=== PATIENT | male | born 1965 | race Caucasian/White ===

== ENCOUNTER 2024-10-09 01:03 | Day surgery (SDC) | payer OTHER, SELFPAY ==
[2024-09-29 12:46] VITALS: BMI 26.6
--- OUTSIDE RECORDS SUMMARY | 2024-10-09 01:06 | XMS_ITS | CONTINUITY OF CARE DOCUMENT ---
Author Name kristina acevedo Address Unknown Organization [facility] Office Address [address] [place] [address] Phone [phone] Care Team Providers Care Signal Operator Name Role Phone Janelle Herrera MD Unavailable [phone] Janelle Herrera MD Unavailable [phone] INSURANCE PROVIDERS Payer name Policy type / Coverage type [place] [employer] [place] [phone] [id number]
--- OUTSIDE RECORDS SUMMARY | 2024-10-09 01:06 | XMS_ITS | Data Portability ---
Author Organization [facility], Main Office Address [address] [place] [address] Assessment Encounter Date Assessment Date Assessment LastModified by Organization Details LastModified Time 09/11/2022 09/11/2022 Hyperlipidemia low-fat diet History of colon polyp colonoscopy Follow-up 6 months [email or web address] Not available 09/11/2022 10:53:44 03/16/2023 03/16/2023 Low-fat diet blood work see me 6 months continue current therapy colonoscopy [email or web address] Not available 03/17/2023 12:46:52 Plan of Treatment Reminders Order Date Submit Date Provider Last Modified By Organization Details Last Modified Time Details Appointments None recorded. Lab PSA, total, serum or plasma 2022 023 [facility] (Lab), [address] [place], [address], 14:34:44 lipid panel, serum 2022 023 [facility] (Lab), [address] [place], [address], 14:13:22 CMP, serum or plasma 2022 023 [facility] (Lab), [address] [place], [address], 14:13:28 CBC w/ auto diff 2022 023 [facility] (Lab), [address] [place], [address], 13:54:18 lipid panel, serum 2022 023 [facility] (Lab), [address] [place], [address], 3 13:48:50 CMP, serum or plasma 2022 023 [facility] (Lab), [address] [place], [address], 3 13:48:55 CBC w/ auto diff 2022 023 [facility] (Lab), [address] [place], [address], 3 11:58:13 Referral None recorded. Procedures colonoscopy screening (PROC) 2022 023 [email or web address] Geoff Solares MD, [address] [facility], [facility] [address], [place], [address], 4 09:40:33 colonoscopy procedure (PROC) 2022 023 angela Solares MD, [address] [facility], [facility] [address], [place], [address], 3 10:49:24 Surgeries None recorded. Imaging None recorded. Medication Orders None recorded. Patient TargetsNo targets recorded. Patient InstructionsNo instructions recorded. Reason for Referral None Reported. Results Created Date Observation Date Name Description Value Unit Range Abnormal Flag Note LastModifiedBy Organization Detail LastModifiedTime 12/15/19 22 12/14/2021 PSA SCREE N PSA medicare screen 1.09 NG/mL 0.00-4 .00 Not Available [facility] (Lab) [address] [place], [address], 12/14/2021 19:51:32 12/15/19 22 12/14/2021 LIPID PANEL cholesterol 158 mg/dL 140-19 9 NIH JAYJAY NSUS RECOM MENDA TION FOR KRISTOFER STERO L: ADULT CHILD LOW RISK: <200 <170 BORDE RLINE : <200- 239 ----- HIGH RISK: >240 >200 Not Available [facility] (Lab) [address] [place], [address], 12/14/2021 19:22:15 12/15/19 22 12/14/2021 LIPID PANEL triglyceride s 179 mg/dL 0-150 high NIH JAYJAY NSUS REPOR T RECOM MENDA TION FOR TRIGL YCERI KEI: ADULT CHILD LOW RISK: <150 ----- BODER LINE: 150-1 99 ----- HIGH RISK: >200 ----- Not Available [facility] (Lab) [address] [place], [address], 12/14/2021 19:22:15 12/15/19 22 12/14/2021 LIPID PANEL HDL cholesterol 37 mg/dL 40- low Not Available [facility] (Lab) [address] [place], [address], 12/14/2021 19:22:15 12/15/19 22 12/14/2021 LIPID PANEL LDL cholesterol, calculated 85 mg/dL 0-130 NIH JAYJAY NSUS REPOR T RECOM MENDA TIONS FOR LDL: ADULT CHILD LOW RISK <130 <110 (OPTI MAL LDL) <100 ----- BORDE RLINE : 130-1 59 ----- HIGH RISK: >160 >130 A TRIGL YCERI DE RESUL T >400 INVAL IDATE S THE CALCU LATIO N FOR LDL FRACT IONAT ION - THE LDL RESUL T WILL NOT BE REPOR DULCE MARIA. Not Available [facility] (Lab) [address] [place], [address], 12/14/2021 19:22:15 12/15/1912/14/2021 COMPR EHENS STONE METAB OLIC PANEL sodium 140 mmol/ L 137-14 5 Not Available [facility] (Lab) [address] [place], [address], 12/14/2021 19:22:13 12/15/19 22 12/14/2021 COMPR EHENS STONE METAB OLIC PANEL potassium 4.1 mmol/ L 3.5-5. 1 Not Available [facility] (Lab) [address] [place], [address], 12/14/2021 19:22:13 12/15/19 22 12/14/2021 COMPR EHENS STONE METAB OLIC PANEL chloride 103 mmol/ L 98-107 Not Available [facility] (Lab) [address] [place], [address], 12/14/2021 19:22:13 12/15/19 22 12/14/2021 COMPR EHENS STONE METAB OLIC PANEL carbon dioxide 28 mmol/ L 22-30 Not Available [facility] (Lab) [address] [place], [address], 12/14/2021 19:22:13 12/15/19 22 12/14/2021 COMPR EHENS STONE METAB OLIC PANEL anion gap 13.1 mmol/ L 14-22 low Not Available [facility] (Lab) [address] [place], [address], 12/14/2021 19:22:13 12/15/19 22 12/14/2021 COMPR EHENS TSONE METAB OLIC PANEL glucose 93 mg/dL 70-99 Not Available [facility] (Lab) [address] [place], [address], 12/14/2021 19:22:13 12/15/19 22 12/14/2021 COMPR EHENS STONE METAB OLIC PANEL BUN 19 mg/dL 8-19 Not Available [facility] (Lab) [address] [place], [address], 12/14/2021 19:22:13 12/15/19 22 12/14/2021 COMPR EHENS STONE METAB OLIC PANEL creatinine 1.24 mg/dL 0.66-1 .25 Not Available [facility] (Lab) [address] [place], [address], 12/14/2021 19:22:13 12/15/19 22 12/14/2021 COMPR EHENS STONE METAB OLIC PANEL GFR >60 Refer ence Range : [place] ge GFR Healt hy Adult : >60 mL/mi n/1.7 3 m2 Chron ic Kidne y Disea se: 15-60 mL/mi n/1.7 3 m2 Kidne y Failu re: <15/m L/min /1.73 m2 www.n iddk. nih.g ov The MDRD study equat ion has not been valid ated in child michi <18 years of age; pregn ant women ; the elder ly >85 years of age; or in some racia l or ethni c subgr oups, such as de nics. Outsi de the valid ated maria e eters , estim ated GFR is less accur ate, requi ring clini jimenez judgm ent on a case- by-ca se basis . Clini jimenez inter preta tion for other races and ages must be made by the clini elham. The MDRD study equat ion has not been valid ated for the evalu ation of serum creat inine relat ed to nutri gia l statu s or medic ation usage . For perso ns <18 years of age, a pedia tric GFR calcu lator is avail able on the [facility] websi te: https ://lu oscar.loretta sahni.o rg/pr ofess ional s/kdo qi/gf r_cal culat or Not Available [facility] (Lab) [address] [place], [address], 12/14/2021 19:22:13 12/15/19 22 12/14/2021 COMPR EHENS STONE METAB OLIC PANEL alkaline phosphatase 75 U/L 38-126 Not Available [facility] (Lab) [address] [place], [address], 12/14/2021 19:22:13 12/15/19 22 12/14/2021 COMPR EHENS STONE METAB OLIC PANEL alanine aminotransfe rase 25 U/L 0-50 Not Available [facility] (Lab) [address] [place], [address], 12/14/2021 19:22:13 12/15/19 22 12/14/2021 COMPR EHENS STONE METAB OLIC PANEL aspartate aminotransfe rase 25 U/L 15-46 Not Available [facility] (Lab) [address] [place], [address], 12/14/2021 19:22:13 12/15/19 22 12/14/2021 COMPR EHENS STONE METAB OLIC PANEL bilirubin, total 0.50 mg/dL 0.20-1 .30 Not Available [facility] (Lab) [address] [place], [address], 12/14/2021 19:22:13 12/15/19 22 12/14/2021 COMPR EHENS STONE METAB OLIC PANEL calcium 9.4 mg/dL 8.4-10 .2 Not Available [facility] (Lab) [address] [place], [address], 12/14/2021 19:22:13 12/15/19 22 12/14/2021 COMPR EHENS STONE METAB OLIC PANEL total protein 7.1 g/dL 6.3-8. 2 Not Available [facility] (Lab) [address] [place], [address], 12/14/2021 19:22:13 12/15/19 22 12/14/2021 COMPR EHENS STONE METAB OLIC PANEL albumin 4.4 g/dL 3.4-5. 0 Not Available [facility] (Lab) [address] [place], [address], 12/14/2021 19:22:13 12/15/19 22 12/14/2021 COMPR EHENS STONE METAB OLIC PANEL globulin 2.7 g/dL 2.6-4. 2 Not Available [facility] (Lab) [address] [place], [address], 12/14/2021 19:22:13 12/15/19 22 12/14/2021 COMPR EHENS STONE METAB OLIC PANEL A/G ratio 1.6 ratio 1.0-2. 0 Not Available [facility] (Lab) [address] [place], [address], 12/14/2021 19:22:13 12/15/19 22 12/14/2021 CBC/C OMPLE TE BLD COUNT W/DIF F white blood cells 7.5 x10'3 /uL 4.2-10 .8 Not Available [facility] (Lab) [address] [place], [address], 12/14/2021 18:33:42 12/15/19 22 12/14/2021 CBC/C OMPLE TE BLD COUNT W/DIF F red blood cells 4.41 x10'6 /uL 4.10-5 .80 Not Available [facility] (Lab) [address] [place], [address], 12/14/2021 18:33:42 12/15/19 22 12/14/2021 CBC/C OMPLE TE BLD COUNT W/DIF F hemoglobin 13.8 g/dL 13.2-1 7.0 Not Available [facility] (Lab) [address] [place], [address], 12/14/2021 18:33:42 12/15/19 22 12/14/2021 CBC/C OMPLE TE BLD COUNT W/DIF F hematocrit 43.1 % 39.3-5 0.0 Not Available [facility] (Lab) [address] [place], [address], 12/14/2021 18:33:42 12/15/19 22 12/14/2021 CBC/C OMPLE TE BLD COUNT W/DIF F mean red cell volume 97.7 fL 80.0-9 7.0 high Not Available [facility] (Lab) [address] [place], [address], 12/14/2021 18:33:42 12/15/19 22 12/14/2021 CBC/C OMPLE TE BLD COUNT W/DIF F mean red cell hemoglobin 31.3 pg 27.0-3 3.0 Not Available [facility] (Lab) [address] [place], [address], 12/14/2021 18:33:42 12/15/19 22 12/14/2021 CBC/C OMPLE TE BLD COUNT W/DIF F mean RBC HGB concentratio n 32.0 g/dL 31.0-3 6.0 Not Available [facility] (Lab) [address] [place], [address], 12/14/2021 18:33:42 12/15/19 22 12/14/2021 CBC/C OMPLE TE BLD COUNT W/DIF F red cell distribution width 13.4 % 11.8-1 5.5 Not Available [facility] (Lab) [address] [place], [address], 12/14/2021 18:33:42 12/15/19 22 12/14/2021 CBC/C OMPLE TE BLD COUNT W/DIF F platelets 260 x10'3 /uL 150-40 0 Not Available [facility] (Lab) [address] [place], [address], 12/14/2021 18:33:42 12/15/19 22 12/14/2021 CBC/C OMPLE TE BLD COUNT W/DIF F mean platelet volume 10.0 fL 9.0-12 .4 Not Available [facility] (Lab) [address] [place], [address], 12/14/2021 18:33:42 12/15/19 22 12/14/2021 CBC/C OMPLE TE BLD COUNT W/DIF F neutrophils 43.3 % 39.0-7 2.0 Not Available [facility] (Lab) [address] [place], [address], 12/14/2021 18:33:42 12/15/19 22 12/14/2021 CBC/C OMPLE TE BLD COUNT W/DIF F lymphocytes 44.6 % 16.0-4 7.0 Not Available [facility] (Lab) [address] [place], [address], 12/14/2021 18:33:42 12/15/19 22 12/14/2021 CBC/C OMPLE TE BLD COUNT W/DIF F monocytes 8.3 % 5.0-12 .0 Not Available [facility] (Lab) [address] [place], [address], 12/14/2021 18:33:42 12/15/19 22 12/14/2021 CBC/C OMPLE TE BLD COUNT W/DIF F eosinophils 2.9 % 1.0-7. 0 Not Available [facility] (Lab) [address] [place], [address], 12/14/2021 18:33:42 12/15/19 22 12/14/2021 CBC/C OMPLE TE BLD COUNT W/DIF F basophils 0.5 % 0.0-2. 0 Not Available [facility] (Lab) [address] [place], [address], 12/14/2021 18:33:42 12/15/19 22 12/14/2021 CBC/C OMPLE TE BLD COUNT W/DIF F immature granulocytes 0.4 % 0.00-0 .50 Not Available [facility] (Lab) [address] [place], [address], 12/14/2021 18:33:42 12/15/19 22 12/14/2021 CBC/C OMPLE TE BLD COUNT W/DIF F neutrophils, absolute count 3.24 x10'3 /uL 1.5-8. 0 Not Available [facility] (Lab) [address] [place], [address], 12/14/2021 18:33:42 12/15/19 22 12/14/2021 CBC/C OMPLE TE BLD COUNT W/DIF F lymphocytes, absolute count 3.34 x10'3 /uL 1.07-3 .43 Not Available [facility] (Lab) [address] [place], [address], 12/14/2021 18:33:42 12/15/19 22 12/14/2021 CBC/C OMPLE TE BLD COUNT W/DIF F monocytes, absolute count 0.62 x10'3 /uL 0.29-0 .99 Not Available [facility] (Lab) [address] [place], [address], 12/14/2021 18:33:42 12/15/19 22 12/14/2021 CBC/C OMPLE TE BLD COUNT W/DIF F eosinophils, absolute count 0.22 x10'3 /uL 0.02-0 .53 Not Available [facility] (Lab) [address] [place], [address], 12/14/2021 18:33:42 12/15/19 22 12/14/2021 CBC/C OMPLE TE BLD COUNT W/DIF F basophils, absolute count 0.04 x10'3 /uL 0.01-0 .08 Not Available [facility] (Lab) [address] [place], [address], 12/14/2021 18:33:42 12/15/19 22 12/14/2021 CBC/C OMPLE TE BLD COUNT W/DIF F immature granulocytes ,absolute 0.03 x10'3 /uL 0.00-0 .05 Not Available [facility] (Lab) [address] [place], [address], 12/14/2021 18:33:42 12/15/19 22 12/14/2021 CBC/C OMPLE TE BLD COUNT W/DIF F nucleated red blood cells 0.0 % -0 Not Available [facility] (Lab) [address] [place], [address], 12/14/2021 18:33:42 12/15/19 22 12/14/2021 CBC/C OMPLE TE BLD COUNT W/DIF F NRBC# 0.00 x10'3 /uL Not Available [facility] (Lab) [address] [place], [address], 12/14/2021 18:33:42 03/14/20 22 03/14/2022 TSH thyroid-stim ulating hormone 1.240 uIU/m L 0.465- 4.680 Not Available [facility] (Lab) [address] [place], [address], 03/14/2022 13:38:31 03/14/20 22 03/14/2022 T3 FREE free T3 3.8 pg/mL 2.77-5 .27 Not Available [facility] (Lab) [address] [place], [address], 03/14/2022 13:29:57 03/14/20 22 03/14/2022 T4 FREE free T4 1.06 NG/dL 0.78-2 .19 Not Available [facility] (Lab) [address] [place], [address], 03/14/2022 13:29:54 03/14/20 22 03/14/2022 COMPR EHENS STONE METAB OLIC PANEL sodium 141 mmol/ L 137-14 5 Not Available [facility] (Lab) [address] [place], [address], 03/14/2022 13:28:21 03/14/20 22 03/14/2022 COMPR EHENS STONE METAB OLIC PANEL potassium 4.0 mmol/ L 3.5-5. 1 Not Available [facility] (Lab) [address] [place], [address], 03/14/2022 13:28:21 03/14/20 22 03/14/2022 COMPR EHENS STONE METAB OLIC PANEL chloride 105 mmol/ L 98-107 Not Available [facility] (Lab) [address] [place], [address], 03/14/2022 13:28:21 03/14/20 22 03/14/2022 COMPR EHENS STONE METAB OLIC PANEL carbon dioxide 29 mmol/ L 22-30 Not Available [facility] (Lab) [address] [place], [address], 03/14/2022 13:28:21 03/14/20 22 03/14/2022 COMPR EHENS STONE METAB OLIC PANEL anion gap 11.0 mmol/ L 14-22 low Not Available [facility] (Lab) [address] [place], [address], 03/14/2022 13:28:21 03/14/20 22 03/14/2022 COMPR EHENS STONE METAB OLIC PANEL glucose 109 mg/dL 70-99 high Not Available [facility] (Lab) [address] [place], [address], 03/14/2022 13:28:21 03/14/20 22 03/14/2022 COMPR EHENS STONE METAB OLIC PANEL BUN 19 mg/dL 8-19 Not Available [facility] (Lab) [address] [place], [address], 03/14/2022 13:28:21 03/14/20 22 03/14/2022 COMPR EHENS STONE METAB OLIC PANEL creatinine 1.03 mg/dL 0.66-1 .25 Not Available [facility] (Lab) [address] [place], [address], 03/14/2022 13:28:21 03/14/20 22 03/14/2022 COMPR EHENS STONE METAB OLIC PANEL GFR >60 Refer ence Range : [place] GFR Healt hy Adult : >60 mL/mi n/1.7 3 m2 Chron ic Kidne y Disea se: 15-60 mL/mi n/1.7 3 m2 Kidne y Failu re: <15/m L/min /1.73 m2 www[facility].g ov The MDRD study equat ion has not been valid ated in child michi <18 years of age; pregn ant women ; the elder ly >85 years of age; or in some racia l or ethni c subgr oups, such as Hispa nics. Outsi de the valid ated maria e eters , estim ated GFR is less accur ate, requi ring clini jimenez judgm ent on a case- by-ca se basis . Clini jimenez inter preta tion for other races and ages must be made by the clini elham. The MDRD study equat ion has not been valid ated for the evalu ation of serum creat inine relat ed to nutri gia l statu s or medic ation usage . For perso ns <18 years of age, a pedia tric GFR calcu lator is avail able on the [facility] websi te: https ://lu sahni.o rg/pr ofess ional s/kdo qi/gf r_cal culat or Not Available [facility] (Lab) [address] [place], [address], 03/14/2022 13:28:21 03/14/20 22 03/14/2022 COMPR EHENS STONE METAB OLIC PANEL alkaline phosphatase 79 U/L 38-126 Not Available [facility] (Lab) [address] [place], [address], 03/14/2022 13:28:21 03/14/20 22 03/14/2022 COMPR EHENS STONE METAB OLIC PANEL alanine aminotransfe rase 19 U/L 0-50 Not Available [facility] (Lab) [address] [place], [address], 03/14/2022 13:28:21 03/14/20 22 03/14/2022 COMPR EHENS STONE METAB OLIC PANEL aspartate aminotransfe rase 23 U/L 15-46 Not Available [facility] (Lab) [address] [place], [address], 03/14/2022 13:28:21 03/14/20 22 03/14/2022 COMPR EHENS STONE METAB OLIC PANEL bilirubin, total 0.60 mg/dL 0.20-1 .30 Not Available [facility] (Lab) [address] [place], [address], 03/14/2022 13:28:21 03/14/20 22 03/14/2022 COMPR EHENS STONE METAB OLIC PANEL calcium 9.4 mg/dL 8.4-10 .2 Not Available [facility] (Lab) [address] [place], [address], 03/14/2022 13:28:21 03/14/20 22 03/14/2022 COMPR EHENS STONE METAB OLIC PANEL total protein 7.1 g/dL 6.3-8. 2 Not Available [facility] (Lab) [address] [place], [address], 03/14/2022 13:28:21 03/14/20 22 03/14/2022 COMPR EHENS STONE METAB OLIC PANEL albumin 4.5 g/dL 3.4-5. 0 Not Available [facility] (Lab) [address] [place], [address], 03/14/2022 13:28:21 03/14/20 22 03/14/2022 COMPR EHENS STONE METAB OLIC PANEL globulin 2.6 g/dL 2.6-4. 2 Not Available [facility] (Lab) [address] [place], [address], 03/14/2022 13:28:21 03/14/20 22 03/14/2022 COMPR EHENS STONE METAB OLIC PANEL A/G ratio 1.7 ratio 1.0-2. 0 Not Available [facility] (Lab) [address] [place], [address], 03/14/2022 13:28:21 03/14/20 22 03/14/2022 MAGNE SIUM magnesium 1.7 mg/dL 1.6-2. 3 Not Available [facility] (Lab) [address] [place], [address], 03/14/2022 13:28:09 03/14/20 22 03/14/2022 CBC/C OMPLE TE BLD COUNT W/DIF F white blood cells 7.3 x10'3 /uL 4.2-10 .8 Not Available [facility] (Lab) [address] [place], [address], 03/14/2022 12:47:02 03/14/20 22 03/14/2022 CBC/C OMPLE TE BLD COUNT W/DIF F red blood cells 4.41 x10'6 /uL 4.10-5 .80 Not Available [facility] (Lab) [address] [place], [address], 03/14/2022 12:47:02 03/14/20 22 03/14/2022 CBC/C OMPLE TE BLD COUNT W/DIF F hemoglobin 14.0 g/dL 13.2-1 7.0 Not Available [facility] (Lab) [address] [place], [address], 03/14/2022 12:47:02 03/14/20 22 03/14/2022 CBC/C OMPLE TE BLD COUNT W/DIF F hematocrit 43.2 % 39.3-5 0.0 Not Available [facility] (Lab) [address] [facility] [place], [address], 03/14/2022 12:47:02 03/14/2003/14/2022 CBC/C OMPLE TE BLD COUNT W/DIF F mean red cell volume 98.0 fL 80.0-9 7.0 high Not Available [facility] (Lab) [address] [place], [address], 03/14/2022 12:47:02 03/14/20 22 03/14/2022 CBC/C OMPLE TE BLD COUNT W/DIF F mean red cell hemoglobin 31.7 pg 27.0-3 3.0 Not Available [facility] (Lab) [address] [place], [address], 03/14/2022 12:47:02 03/14/2003/14/2022 CBC/C OMPLE TE BLD COUNT W/DIF F mean RBC HGB concentratio n 32.4 g/dL 31.0-3 6.0 Not Available [facility] (Lab) [address] [place], [address], 03/14/2022 12:47:02 03/14/20 22 03/14/2022 CBC/C OMPLE TE BLD COUNT W/DIF F red cell distribution width 13.4 % 11.8-1 5.5 Not Available [facility] (Lab) [address] [place], [address], 03/14/2022 12:47:02 03/14/20 22 03/14/2022 CBC/C OMPLE TE BLD COUNT W/DIF F platelets 247 x10'3 /uL 150-40 0 Not Available [facility] (Lab) [address] [place], [address], 03/14/2022 12:47:02 03/14/20 22 03/14/2022 CBC/C OMPLE TE BLD COUNT W/DIF F mean platelet volume 10.1 fL 9.0-12 .4 Not Available [facility] (Lab) [address] [place], [address], 03/14/2022 12:47:02 03/14/20 22 03/14/2022 CBC/C OMPLE TE BLD COUNT W/DIF F neutrophils 49.2 % 39.0-7 2.0 Not Available [facility] (Lab) [address] [place], [address], 03/14/2022 12:47:02 03/14/20 22 03/14/2022 CBC/C OMPLE TE BLD COUNT W/DIF F lymphocytes 39.5 % 16.0-4 7.0 Not Available [facility] (Lab) [address] [place], [address], 03/14/2022 12:47:02 03/14/20 22 03/14/2022 CBC/C OMPLE TE BLD COUNT W/DIF F monocytes 7.2 % 5.0-12 .0 Not Available [facility] (Lab) [address] [place], [address], 03/14/2022 12:47:02 03/14/20 22 03/14/2022 CBC/C OMPLE TE BLD COUNT W/DIF F eosinophils 3.7 % 1.0-7. 0 Not Available [facility] (Lab) [address] [place], [address], 03/14/2022 12:47:02 03/14/20 22 03/14/2022 CBC/C OMPLE TE BLD COUNT W/DIF F basophils 0.3 % 0.0-2. 0 Not Available [facility] (Lab) [address] [place], [address], 03/14/2022 12:47:02 03/14/20 22 03/14/2022 CBC/C OMPLE TE BLD COUNT W/DIF F immature granulocytes 0.1 % 0.00-0 .50 Not Available [facility] (Lab) [address] [place], [address], 03/14/2022 12:47:02 03/14/2003/14/2022 CBC/C OMPLE TE BLD COUNT W/DIF F neutrophils, absolute count 3.61 x10'3 /uL 1.5-8. 0 Not Available [facility] (Lab) [address] [place], [address], 03/14/2022 12:47:02 03/14/2003/14/2022 CBC/C OMPLE TE BLD COUNT W/DIF F lymphocytes, absolute count 2.90 x10'3 /uL 1.07-3 .43 Not Available [facility] (Lab) [address] [place], [address], 03/14/2022 12:47:02 03/14/2003/14/2022 CBC/C OMPLE TE BLD COUNT W/DIF F monocytes, absolute count 0.53 x10'3 /uL 0.29-0 .99 Not Available [facility] (Lab) [address] [place], [address], 03/14/2022 12:47:02 03/14/2003/14/2022 CBC/C OMPLE TE BLD COUNT W/DIF F eosinophils, absolute count 0.27 x10'3 /uL 0.02-0 .53 Not Available [facility] (Lab) [address] [place], [address], 03/14/2022 12:47:02 03/14/2003/14/2022 CBC/C OMPLE TE BLD COUNT W/DIF F basophils, absolute count 0.02 x10'3 /uL 0.01-0 .08 Not Available [facility] (Lab) [address] [place], [address], 03/14/2022 12:47:02 03/14/2001 0403/14/2022 CBC/C OMPLE TE BLD COUNT W/DIF F immature granulocytes ,absolute 0.01 x10'3 /uL 0.00-0 .05 Not Available [facility] (Lab) [address] [place], [address], 03/14/2022 12:47:02 03/14/20 22 03/14/2022 CBC/C OMPLE TE BLD COUNT W/DIF F nucleated red blood cells 0.0 % -0 Not Available [facility] (Lab) [address] [place], [address], 03/14/2022 12:47:02 03/14/2003/14/2022 CBC/C OMPLE TE BLD COUNT W/DIF F NRBC# 0.00 x10'3 /uL Not Available [facility] (Lab) [address] [place], [address], 03/14/2022 12:47:02 09/12/19 23 09/11/2022 CBC/C OMPLE TE BLD COUNT W/DIF F white blood cells 6.7 x10'3 /uL 4.2-10 .8 Not Available [facility] (Lab) [address] [place], [address], 09/11/2022 11:58:13 09/12/1909/11/2022 CBC/C OMPLE TE BLD COUNT W/DIF F red blood cells 4.34 x10'6 /uL 4.10-5 .80 Not Available [facility] (Lab) [address] [place], [address], 09/11/2022 11:58:13 09/12/19 23 09/11/2022 CBC/C OMPLE TE BLD COUNT W/DIF F hemoglobin 13.6 g/dL 13.2-1 7.0 Not Available [facility] (Lab) [address] [place], [address], 09/11/2022 11:58:13 09/12/19 23 09/11/2022 CBC/C OMPLE TE BLD COUNT W/DIF F hematocrit 42.1 % 39.3-5 0.0 Not Available [facility] (Lab) [address] [place], [address], 09/11/2022 11:58:13 09/12/19 23 09/11/2022 CBC/C OMPLE TE BLD COUNT W/DIF F mean red cell volume 97.0 fL 80.0-9 7.0 Not Available [facility] (Lab) [address] [place], [address], 09/11/2022 11:58:13 09/12/19 23 09/11/2022 CBC/C OMPLE TE BLD COUNT W/DIF F mean red cell hemoglobin 31.3 pg 27.0-3 3.0 Not Available [facility] (Lab) [address] [place], [address], 09/11/2022 11:58:13 09/12/19 23 09/11/2022 CBC/C OMPLE TE BLD COUNT W/DIF F mean RBC HGB concentratio n 32.3 g/dL 31.0-3 6.0 Not Available [facility] (Lab) [address] [place], [address], 09/11/2022 11:58:13 09/12/19 23 09/11/2022 CBC/C OMPLE TE BLD COUNT W/DIF F red cell distribution width 14.0 % 11.8-1 5.5 Not Available [facility] (Lab) [address] [place], [address], 09/11/2022 11:58:13 09/12/19 23 09/11/2022 CBC/C OMPLE TE BLD COUNT W/DIF F platelets 253 x10'3 /uL 150-40 0 Not Available [facility] (Lab) [address] [place], [place], [address], 09/11/2022 11:58:13 09/12/19 23 09/11/2022 CBC/C OMPLE TE BLD COUNT W/DIF F mean platelet volume 9.7 fL 9.0-12 .4 Not Available [facility] (Lab) [address] [place], [address], 09/11/2022 11:58:13 09/12/19 23 09/11/2022 CBC/C OMPLE TE BLD COUNT W/DIF F neutrophils 46.8 % 39.0-7 2.0 Not Available [facility] (Lab) [address] [place], [address], 09/11/2022 11:58:13 09/12/19 23 09/11/2022 CBC/C OMPLE TE BLD COUNT W/DIF F lymphocytes 41.9 % 16.0-4 7.0 Not Available [facility] (Lab) [address] [place], [address], 09/11/2022 11:58:13 09/12/19 23 09/11/2022 CBC/C OMPLE TE BLD COUNT W/DIF F monocytes 7.2 % 5.0-12 .0 Not Available [facility] (Lab) [address] [place], [address], 09/11/2022 11:58:13 09/12/1909/11/2022 CBC/C OMPLE TE BLD COUNT W/DIF F eosinophils 3.4 % 1.0-7. 0 Not Available [facility] (Lab) [address] [place], [address], 09/11/2022 11:58:13 09/12/1909/11/2022 CBC/C OMPLE TE BLD COUNT W/DIF F basophils 0.6 % 0.0-2. 0 Not Available [facility] (Lab) [address] [place], [address], 09/11/2022 11:58:13 09/12/19 23 09/11/2022 CBC/C OMPLE TE BLD COUNT W/DIF F immature granulocytes 0.1 % 0.00-0 .50 Not Available [facility] (Lab) [address] [place], [address], 09/11/2022 11:58:13 09/12/19 23 09/11/2022 CBC/C OMPLE TE BLD COUNT W/DIF F neutrophils, absolute count 3.13 x10'3 /uL 1.5-8. 0 Not Available [facility] (Lab) [address] [place], [address], 09/11/2022 11:58:13 09/12/19 23 09/11/2022 CBC/C OMPLE TE BLD COUNT W/DIF F lymphocytes, absolute count 2.81 x10'3 /uL 1.07-3 .43 Not Available [facility] (Lab) [address] [place], [address], 09/11/2022 11:58:13 09/12/19 23 09/11/2022 CBC/C OMPLE TE BLD COUNT W/DIF F monocytes, absolute count 0.48 x10'3 /uL 0.29-0 .99 Not Available [facility] (Lab) [address] [place], [address], 09/11/2022 11:58:13 09/12/19 23 09/11/2022 CBC/C OMPLE TE BLD COUNT W/DIF F eosinophils, absolute count 0.23 x10'3 /uL 0.02-0 .53 Not Available [facility] (Lab) [address] [place], [address], 09/11/2022 11:58:13 09/12/19 23 09/11/2022 CBC/C OMPLE TE BLD COUNT W/DIF F basophils, absolute count 0.04 x10'3 /uL 0.01-0 .08 Not Available [facility] (Lab) [address] [place], [address], 09/11/2022 11:58:13 09/12/19 23 09/11/2022 CBC/C OMPLE TE BLD COUNT W/DIF F immature granulocytes ,absolute 0.01 x10'3 /uL 0.00-0 .05 Not Available [facility] (Lab) [address] [place], [address], 09/11/2022 11:58:13 09/12/19 23 09/11/2022 CBC/C OMPLE TE BLD COUNT W/DIF F nucleated red blood cells 0.0 % -0 Not Available [facility] (Lab) [address] [place], [address], 09/11/2022 11:58:13 09/12/19 23 09/11/2022 CBC/C OMPLE TE BLD COUNT W/DIF F NRBC# 0.00 x10'3 /uL Not Available [facility] (Lab) [address] [place], [address], 09/11/2022 11:58:13 09/12/1909/11/2022 LIPID PANEL cholesterol 155 mg/dL 140-19 9 NIH JAYJAY NSUS RECOM MENDA TION FOR KRISTOFER STERO L: ADULT CHILD LOW RISK: <200 <170 BORDE RLINE : <200- 239 ----- HIGH RISK: >240 >200 Not Available [facility] (Lab) [address] [place], [address], 09/11/2022 13:48:50 09/12/1909/11/2022 LIPID PANEL triglyceride s 107 mg/dL 0-150 NIH JAYJAY NSUS REPOR T RECOM MENDA TION FOR TRIGL YCERI KEI: ADULT CHILD LOW RISK: <150 ----- BODER LINE: 150-1 99 ----- HIGH RISK: >200 ----- Not Available [facility] (Lab) [address] [place], [address], 09/11/2022 13:48:50 09/12/1909/11/2022 LIPID PANEL HDL cholesterol 38 mg/dL 40- low Not Available [facility] (Lab) [address] [place], [address], 09/11/2022 13:48:50 09/12/1909/11/2022 LIPID PANEL LDL cholesterol, calculated 96 mg/dL 0-130 NIH JAYJAY NSUS REPOR T RECOM MENDA TIONS FOR LDL: ADULT CHILD LOW RISK <130 <110 (OPTI MAL LDL) <100 ----- BORDE RLINE : 130-1 59 ----- HIGH RISK: >160 >130 A TRIGL YCERI DE RESUL T >400 INVAL IDATE S THE CALCU LATIO N FOR LDL FRACT IONAT ION - THE LDL RESUL T WILL NOT BE REPOR DULCE MARIA. Not Available [facility] (Lab) [address] [place], [address], 09/11/2022 13:48:50 09/12/1909/11/2022 COMPR EHENS STONE METAB OLIC PANEL sodium 141 mmol/ L 137-14 5 Not Available [facility] (Lab) [address] [place], [address], 09/11/2022 13:48:55 09/12/1909/11/2022 COMPR EHENS STONE METAB OLIC PANEL potassium 4.1 mmol/ L 3.5-5. 1 Not Available [facility] (Lab) [address] [place], [address], 09/11/2022 13:48:55 09/12/1909/11/2022 COMPR EHENS STONE METAB OLIC PANEL chloride 105 mmol/ L 98-107 Not Available [facility] (Lab) [address] [place], [address], 09/11/2022 13:48:55 09/12/19 23 09/11/2022 COMPR EHENS STONE METAB OLIC PANEL carbon dioxide 24 mmol/ L 22-30 Not Available [facility] (Lab) [address] [place], [address], 09/11/2022 13:48:55 09/12/19 23 09/11/2022 COMPR EHENS STONE METAB OLIC PANEL anion gap 16.1 mmol/ L 14-22 Not Available [facility] (Lab) [address] [place], [address], 09/11/2022 13:48:55 09/12/19 23 09/11/2022 COMPR EHENS STONE METAB OLIC PANEL glucose 111 mg/dL 70-99 high Not Available [facility] (Lab) [address] [place], [address], 09/11/2022 13:48:55 09/12/19 23 09/11/2022 COMPR EHENS STONE METAB OLIC PANEL BUN 14 mg/dL 8-19 Not Available [facility] (Lab) [address] [place], [address], 09/11/2022 13:48:55 09/12/19 23 09/11/2022 COMPR EHENS STONE METAB OLIC PANEL creatinine 0.83 mg/dL 0.66-1 .25 Not Available [facility] (Lab) [address] [place], [address], 09/11/2022 13:48:55 09/12/19 23 09/11/2022 COMPR EHENS STONE METAB OLIC PANEL GFR >60 Refer ence Range : [place] GFR Healt hy Adult : >60 mL/mi n/1.7 3 m2 Chron ic Kidne y Disea se: 15-60 mL/mi n/1.7 3 m2 Kidne y Failu re: <15/m L/min /1.73 m2 www.n iddk. nih.g ov The MDRD study equat ion has not been valid ated in child michi <18 years of age; pregn ant women ; the elder ly >85 years of age; or in some racia l or ethni c subgr oups, such as Hispa nics. Outsi de the valid ated maria e eters , estim ated GFR is less accur ate, requi ring clini jimenez judgm ent on a case- by-ca se basis . Clini jimenez inter preta tion for other races and ages must be made by the clini elham. The MDRD study equat ion has not been valid ated for the evalu ation of serum creat inine relat ed to nutri gia l statu s or medic ation usage . For perso ns <18 years of age, a pedia tric GFR calcu lator is avail able on the [facility] websi te: https ://lu w.kid bora.o rg/pr ofess ional s/kdo qi/gf r_cal culat or Not Available [facility] (Lab) [address] [place], [address], 09/11/2022 13:48:55 09/12/19 23 09/11/2022 COMPR EHENS STONE METAB OLIC PANEL alkaline phosphatase 84 U/L 38-126 Not Available [facility] (Lab) [address] [place], [address], 09/11/2022 13:48:55 09/12/19 23 09/11/2022 COMPR EHENS STONE METAB OLIC PANEL alanine aminotransfe rase 28 U/L 0-50 Not Available [facility] (Lab) [address] [place], [address], 09/11/2022 13:48:55 09/12/19 23 09/11/2022 COMPR EHENS STONE METAB OLIC PANEL aspartate aminotransfe rase 27 U/L 15-46 Not Available [facility] (Lab) [address] [place], [address], 09/11/2022 13:48:55 09/12/19 23 09/11/2022 COMPR EHENS STONE METAB OLIC PANEL bilirubin, total 0.50 mg/dL 0.20-1 .30 Not Available [facility] (Lab) [address] [place], [address], 09/11/2022 13:48:55 09/12/19 23 09/11/2022 COMPR EHENS STONE METAB OLIC PANEL calcium 8.9 mg/dL 8.4-10 .2 Not Available [facility] (Lab) [address] [place], [address], 09/11/2022 13:48:55 09/12/19 23 09/11/2022 COMPR EHENS STONE METAB OLIC PANEL total protein 7.0 g/dL 6.3-8. 2 Not Available [facility] (Lab) [address] [place], [address], 09/11/2022 13:48:55 09/12/19 23 09/11/2022 COMPR EHENS STONE METAB OLIC PANEL albumin 4.3 g/dL 3.4-5. 0 Not Available [facility] (Lab) [address] [place], [address], 09/11/2022 13:48:55 09/12/19 23 09/11/2022 COMPR EHENS STONE METAB OLIC PANEL globulin 2.7 g/dL 2.6-4. 2 Not Available [facility] (Lab) [address] [place], [address], 09/11/2022 13:48:55 09/12/19 23 09/11/2022 COMPR EHENS STONE METAB OLIC PANEL A/G ratio 1.6 ratio 1.0-2. 0 Not Available [facility] (Lab) [address] [place], [address], 09/11/2022 13:48:55 03/22/20 23 03/22/2023 CBC/C OMPLE TE BLD COUNT W/DIF F white blood cells 8.3 x10'3 /uL 4.2-10 .8 Not Available [facility] (Lab) [address] [place], [address], 03/22/2023 13:54:18 03/22/2003/22/2023 CBC/C OMPLE TE BLD COUNT W/DIF F red blood cells 4.36 x10'6 /uL 4.10-5 .80 Not Available [facility] (Lab) [address] [place], [address], 03/22/2023 13:54:18 03/22/2003/22/2023 CBC/C OMPLE TE BLD COUNT W/DIF F hemoglobin 14.4 g/dL 13.2-1 7.0 Not Available [facility] (Lab) [address] [place], [address], 03/22/2023 13:54:18 03/22/2003/22/2023 CBC/C OMPLE TE BLD COUNT W/DIF F hematocrit 43.5 % 39.3-5 0.0 Not Available [facility] (Lab) [address] [place], [address], 03/22/2023 13:54:18 03/22/2003/22/2023 CBC/C OMPLE TE BLD COUNT W/DIF F mean red cell volume 99.8 fL 80.0-9 7.0 high Not Available [facility] (Lab) [address] [place], [address], 03/22/2023 13:54:18 03/22/2003/22/2023 CBC/C OMPLE TE BLD COUNT W/DIF F mean red cell hemoglobin 33.0 pg 27.0-3 3.0 Not Available [facility] (Lab) [address] [place], [address], 03/22/2023 13:54:18 03/22/2003/22/2023 CBC/C OMPLE TE BLD COUNT W/DIF F mean RBC HGB concentratio n 33.1 g/dL 31.0-3 6.0 Not Available [facility] (Lab) [address] [place], [address], 03/22/2023 13:54:18 03/22/2003/22/2023 CBC/C OMPLE TE BLD COUNT W/DIF F red cell distribution width 13.7 % 11.8-1 5.5 Not Available [facility] (Lab) [address] [place], [address], 03/22/2023 13:54:18 03/22/2003/22/2023 CBC/C OMPLE TE BLD COUNT W/DIF F platelets 256 x10'3 /uL 150-40 0 Not Available [facility] (Lab) [address] [place], [address], 03/22/2023 13:54:18 03/22/2003/22/2023 CBC/C OMPLE TE BLD COUNT W/DIF F mean platelet volume 10.1 fL 9.0-12 .4 Not Available [facility] (Lab) [address] [place], [address], 03/22/2023 13:54:18 03/22/2003/22/2023 CBC/C OMPLE TE BLD COUNT W/DIF F neutrophils 44.2 % 39.0-7 2.0 Not Available [facility] (Lab) [address] [place], [address], 03/22/2023 13:54:18 03/22/2003/22/2023 CBC/C OMPLE TE BLD COUNT W/DIF F lymphocytes 44.0 % 16.0-4 7.0 Not Available [facility] (Lab) [address] [place], [address], 03/22/2023 13:54:18 03/22/2003/22/2023 CBC/C OMPLE TE BLD COUNT W/DIF F monocytes 8.1 % 5.0-12 .0 Not Available [facility] (Lab) [address] [place], [address], 03/22/2023 13:54:18 03/22/2003/22/2023 CBC/C OMPLE TE BLD COUNT W/DIF F eosinophils 2.9 % 1.0-7. 0 Not Available [facility] (Lab) [address] [place], [address], 03/22/2023 13:54:18 03/22/2003/22/2023 CBC/C OMPLE TE BLD COUNT W/DIF F basophils 0.6 % 0.0-2. 0 Not Available [facility] (Lab) [address] [place], [address], 03/22/2023 13:54:18 03/22/2003/22/2023 CBC/C OMPLE TE BLD COUNT W/DIF F immature granulocytes 0.2 % 0.00-0 .50 Not Available [facility] (Lab) [address] [place], [address], 03/22/2023 13:54:18 03/22/2003/22/2023 CBC/C OMPLE TE BLD COUNT W/DIF F neutrophils, absolute count 3.67 x10'3 /uL 1.5-8. 0 Not Available [facility] (Lab) [address] [place], [address], 03/22/2023 13:54:18 03/22/2003/22/2023 CBC/C OMPLE TE BLD COUNT W/DIF F lymphocytes, absolute count 3.65 x10'3 /uL 1.07-3 .43 high Not Available [facility] (Lab) [address] [place], [address], 03/22/2023 13:54:18 03/22/20 23 03/22/2023 CBC/C OMPLE TE BLD COUNT W/DIF F monocytes, absolute count 0.67 x10'3 /uL 0.29-0 .99 Not Available [facility] (Lab) [address] [place], [address], 03/22/2023 13:54:18 03/22/2003/22/2023 CBC/C OMPLE TE BLD COUNT W/DIF F eosinophils, absolute count 0.24 x10'3 /uL 0.02-0 .53 Not Available [facility] (Lab) [address] [place], [address], 03/22/2023 13:54:18 03/22/20 23 03/22/2023 CBC/C OMPLE TE BLD COUNT W/DIF F basophils, absolute count 0.05 x10'3 /uL 0.01-0 .08 Not Available [facility] (Lab) [address] [place], [address], 03/22/2023 13:54:18 03/22/2003/22/2023 CBC/C OMPLE TE BLD COUNT W/DIF F immature granulocytes ,absolute 0.02 x10'3 /uL 0.00-0 .05 Not Available [facility] (Lab) [address] [place], [address], 03/22/2023 13:54:18 03/22/2003/22/2023 CBC/C OMPLE TE BLD COUNT W/DIF F nucleated red blood cells 0.0 % -0 Not Available [facility] (Lab) [address] [place], [address], 03/22/2023 13:54:18 03/22/20 23 03/22/2023 CBC/C OMPLE TE BLD COUNT W/DIF F NRBC# 0.00 x10'3 /uL Not Available [facility] (Lab) [address] [place], [address], 03/22/2023 13:54:18 03/22/2003/22/2023 LIPID PANEL cholesterol 161 mg/dL 140-19 9 NIH JAYJAY NSUS RECOM MENDA TION FOR KRISTOFER STERO L: ADULT CHILD LOW RISK: <200 <170 BORDE RLINE : <200- 239 ----- HIGH RISK: >240 >200 Not Available [facility] (Lab) [address] [place], [address], 03/22/2023 14:13:22 03/22/2003/22/2023 LIPID PANEL triglyceride s 118 mg/dL 0-150 NIH JAYJAY NSUS REPOR T RECOM MENDA TION FOR TRIGL YCERI KEI: ADULT CHILD LOW RISK: <150 ----- BODER LINE: 150-1 99 ----- HIGH RISK: >200 ----- Not Available [facility] (Lab) [address] [place], [address], 03/22/2023 14:13:22 03/22/2003/22/2023 LIPID PANEL HDL cholesterol 36 mg/dL 40- low Not Available [facility] (Lab) [address] [place], [address], 03/22/2023 14:13:22 03/22/2003/22/2023 LIPID PANEL LDL cholesterol, calculated 101 mg/dL 0-130 NIH JAYJAY NSUS REPOR T RECOM MENDA TIONS FOR LDL: ADULT CHILD LOW RISK <130 <110 (OPTI MAL LDL) <100 ----- BORDE RLINE : 130-1 59 ----- HIGH RISK: >160 >130 A TRIGL YCERI DE RESUL T >400 INVAL IDATE S THE CALCU LATIO N FOR LDL FRACT IONAT ION - THE LDL RESUL T WILL NOT BE REPOR DULCE MARIA. Not Available [facility] (Lab) [address] [place], [address], 03/22/2023 14:13:22 03/22/2003/22/2023 COMPR EHENS STONE METAB OLIC PANEL sodium 143 mmol/ L 137-14 5 Not Available [facility] (Lab) [address] [place], [address], 03/22/2023 14:13:28 03/22/20 23 03/22/2023 COMPR EHENS STONE METAB OLIC PANEL potassium 4.2 mmol/ L 3.5-5. 1 Not Available [facility] (Lab) [address] [place], [address], 03/22/2023 14:13:28 03/22/2003/22/2023 COMPR EHENS STONE METAB OLIC PANEL chloride 103 mmol/ L 98-107 Not Available [facility] (Lab) [address] [place], [address], 03/22/2023 14:13:28 03/22/2003/22/2023 COMPR EHENS STONE METAB OLIC PANEL carbon dioxide 31 mmol/ L 22-30 high Not Available [facility] (Lab) [address] [place], [address], 03/22/2023 14:13:28 03/22/20 23 03/22/2023 COMPR EHENS STONE METAB OLIC PANEL anion gap 13.2 mmol/ L 14-22 low Not Available [facility] (Lab) [address] [place], [address], 03/22/2023 14:13:28 03/22/2003/22/2023 COMPR EHENS STONE METAB OLIC PANEL glucose 98 mg/dL 70-99 Not Available [facility] (Lab) [address] [place], [address], 03/22/2023 14:13:28 03/22/20 23 03/22/2023 COMPR EHENS STONE METAB OLIC PANEL BUN 17 mg/dL 8-19 Not Available [facility] (Lab) [address] [place], [address], 03/22/2023 14:13:28 03/22/2003/22/2023 COMPR EHENS STONE METAB OLIC PANEL creatinine 0.91 mg/dL 0.66-1 .25 Not Available [facility] (Lab) [address] [place], [address], 03/22/2023 14:13:28 03/22/2003/22/2023 COMPR EHENS STONE METAB OLIC PANEL GFR >60 Refer ence Range : [place] ge GFR Healt hy Adult : >60 mL/mi n/1.7 3 m2 Chron ic Kidne y Disea se: 15-60 mL/mi n/1.7 3 m2 Kidne y Failu re: <15/m L/min /1.73 m2 www.n iddk. nih.g ov The MDRD study equat ion has not been valid ated in child michi <18 years of age; pregn ant women ; the elder ly >85 years of age; or in some racia l or ethni c subgr oups, such as Hisde nics. Outsi de the valid ated maria e eters , estim ated GFR is less accur ate, requi ring clini jimenez judgm ent on a case- by-ca se basis . Clini jimenez inter preta tion for other races and ages must be made by the clini elham. The MDRD study equat ion has not been valid ated for the evalu ation of serum creat inine relat ed to nutri gia l statu s or medic ation usage . For perso ns <18 years of age, a pedia tric GFR calcu lator is avail able on the [facility] websi te: https ://lu sahni.kennedy benites/pr sage erazoal s/kdo qi/gf r_cal culat or Not Available [facility] (Lab) [address] [place], [address], 03/22/2023 14:13:28 03/22/2003/22/2023 COMPR EHENS STONE METAB OLIC PANEL alkaline phosphatase 76 U/L 38-126 Not Available [facility] (Lab) [address] [place], [address], 03/22/2023 14:13:28 03/22/2003/22/2023 COMPR EHENS STONE METAB OLIC PANEL alanine aminotransfe rase 24 U/L 0-50 Not Available [facility] (Lab) [address] [place], [address], 03/22/2023 14:13:28 03/22/2003/22/2023 COMPR EHENS STONE METAB OLIC PANEL aspartate aminotransfe rase 24 U/L 15-46 Not Available [facility] (Lab) [address] [place], [address], 03/22/2023 14:13:28 03/22/2003/22/2023 COMPR EHENS STONE METAB OLIC PANEL bilirubin, total 0.50 mg/dL 0.20-1 .30 Not Available [facility] (Lab) [address] [place], [address], 03/22/2023 14:13:28 03/22/2003/22/2023 COMPR EHENS STONE METAB OLIC PANEL calcium 9.5 mg/dL 8.4-10 .2 Not Available [facility] (Lab) [address] [place], [address], 03/22/2023 14:13:28 03/22/2003/22/2023 COMPR EHENS STONE METAB OLIC PANEL total protein 7.2 g/dL 6.3-8. 2 Not Available [facility] (Lab) [address] [place], [address], 03/22/2023 14:13:28 03/22/2003/22/2023 COMPR EHENS STONE METAB OLIC PANEL albumin 4.4 g/dL 3.4-5. 0 Not Available [facility] (Lab) [address] [place], [address], 03/22/2023 14:13:28 03/22/20 23 03/22/2023 COMPR EHENS STONE METAB OLIC PANEL globulin 2.8 g/dL 2.6-4. 2 Not Available [facility] (Lab) [address] [place], [address], 03/22/2023 14:13:28 03/22/20 23 03/22/2023 COMPR EHENS STOEN METAB OLIC PANEL A/G ratio 1.6 ratio 1.0-2. 0 Not Available [facility] (Lab) [address] [place], [address], 03/22/2023 14:13:28 03/22/20 23 03/22/2023 PSA SCREE N PSA medicare screen 1.16 NG/mL 0.00-4 .00 Not Available [facility] (Lab) [address] [place], [address], 03/22/2023 14:34:44 03/13/20 22 03/14/2022 [facility] No observ ation record ed. [id number] Z_[id number]_gmg Internal Med [facility] [address] [facility] [address] [facility] [address], [place], [address], 08/09/2022 15:17:34 03/14/20 22 03/13/2022 elect rocar diogr am No observ ation record ed. [id number] Z_hrgmc_gmg Internal Med [facility] [address] [facility] [address], [place], [address], 08/09/2022 15:17:34 03/17/20 22 03/17/2022 MRI, inter nal audit ory canal , w/wo contr ast [facility] [address] [place] [address] [phone] Patirosaura t Name: ANDRAE BUTLER Access ion #: [id number] Sex: M : 1964 6 Locati on: [facility] Attend ing Physic mingo: BRADY HERNANDEZ Orderi ng Physic mingo: BRADY HERNANDEZ Exam Date: 1:18 PM Exam Name: MRI IACS W/WO Admitt ing Diagno sis(es ): RADIOL OGY REPORT - FINAL EXAM: MRI IACS W/WO HISTOR Y: dizzin ess COMPAR CHAKA: None availa ble. TECHNI QUE: DOSE: 17.0ml Multih ance gadoli nium Multip lanar multis equenc e pre and post IV contra st images of the IACs were perfor med. FINDIN GS: No eviden ce of mass in the cerebe llopon connor angle cister ns or exercise science internship al audito ry canals . The fifth, sevent h, and eighth crania l nerves are symmet mitch withou t abnorm al thicke jadiel. The cochle a and vestib ular aquedu cts appear Page 1 of 2 [facility] Patien t Name: ANDRAE BUTLER Access ion #: [id number] Sex: M : 1964 6 Exam Date: 1:18 PM Exam Name: MRI IACS W/WO Admitt ing Diagno sis(es ): normal and symmet mitch. No eviden ce of fluid or abnorm al signal in the middle ear spaces , mastoi d air cells, or calender let off operator al audito ry canals . IMPRES VIVIANA: Unrema rkable pre and post IV contra st MRI of the IACs. Create d and electr onical ly signed by: Elmer schmid MD Signed Date: 4:23 PM (CT) Dictat ed by: Elmer schmid MD DD: 4:23 PM (CT) DT: 4:23 PM (CT) Page 2 of 2 [id number] [facility] (Imaging) [address] [place], [address], 08/09/2022 15:17:34 03/17/20 22 03/17/2022 , echoc ardio gram No observ ation record ed. [id number] [facility] [address], [place], [address], 08/09/2022 15:17:34 03/17/20 22 03/17/2022 MRI, brain , w/wo contr ast [facility] [address], [place] [address] Patien t Name: ANDRAE BUTLER Access ion #: [id number] Sex: M : 1964 8 Locati on: [facility] Attend ing Physic mingo: BRADY HERNANDEZ Orderi ng Physic mingo: BRADY HERNANDEZ Exam Date: 1:18 PM Exam Name: MRI BRAIN W/WO Admitt ing Diagno sis(es ): RADIOL OGY REPORT - FINAL EXAM: MRI BRAIN W/WO HISTOR Y: dizzin ess COMPAR CHAKA: None. TECHNI QUE: Dose: 17.0 ml Multih ance gadoli nium TECHNI QUE: Multip lanar multis equenc e contra st and noncon trast images are review ed. Images are review ed in the [facility], [facility], and axial plane. Diffus ion-we ighted images are review ed. FINDIN GS: Brain: The stephen-w alexis matter differ entiat ion is within normal limits withou t eviden ce of demyel inatin g proces s. No eviden ce of enceph alomal acia. No Page 1 of 2 [facility] Patien t Name: ANDRAE BUTLER Access ion #: [id number] Sex: M : 1964 8 Exam Date: 1:18 PM Exam Name: MRI BRAIN W/WO Admitt ing Diagno sis(es ): eviden ce of infarc tion. No eviden ce of mass effect or cortic al atroph y. The diffus ion weight ed sequen remy are normal . The bilate ral 7/8 nerve comple x, brains tem and cerebe llum are grossl y normal . Ventri cular system midlin e, normal size, normal develo pment. Osseou s: The calvar ium appear s normal . Sinuse s: Mild inflam matory change s within the bilate ral maxill mateo and ethmoi d air cells. Tempor al mastoi d air cells: Unrema rkable Extra- axial fluid space: Unrema rkable IMPRES VIVIANA: 1. No acute intrac ranial proces s. Create d and electr onical ly signed by: Elmer schmid MD Signed Date: 4:22 PM (CT) Dictat ed by: Elmer schmid MD DD: 4:22 PM (CT) DT: 4:22 PM (CT) Page 2 of 2 [id number] [facility] (Imaging) [address] [place], [address], 08/09/2022 15:17:34 Result Notes None recorded. Problems Name Problem SNOMED Code Status Onset Date Resolution Date Notes Provider Name and Address Organization Details Recorded Time Impacted cerumen of bilateral ears 00124812134 [id number] Active 2021 Not Available [facility] 3 07:57:59 Increased frequency of urination 397292167 Active Not Available [facility] 3 07:57:59 Pure hyperchol esterolem ia 503419215 Active Not Available [facility] 3 07:57:59 Wax in ear canal 051176729 Completed Not Available [facility] 3 15:14:59 Cat bite - wound 716459124 Completed Not Available [facility] 3 15:14:59 Inguinal hernia 139044489 Active Not Available [facility] 3 07:57:59 Vertigo 944462291 Active 2021 Not Available [facility] 3 07:57:59 Dizziness 485793043 Active 2021 Not Available [facility] 3 07:58:00 Hyperplas ia of prostate 155480376 Active Not Available [facility] 3 07:58:00 [place] 77690317 Active 2021 Not Available [facility] [facility] 07:58:00 Urgent desire to urinate [id number] Completed Not Available [facility] 3 15:15:00 Neck pain 04106010 Completed Not Available [facility] 3 15:15:00 Chronic rhinitis 28451408 Active Not Available [facility] 3 07:58:00 Problem Notes None recorded. Procedures Surgical History None recorded. Imaging Results Imaging Date Name Status LastModified by Organization Details LastModified Time 03/17/2022 MRI, internal auditory canal, w/wo contrast completed [id number] [facility] (Imaging) [address] [place], [address], 08/09/2022 15:17:34 03/17/2022 US, echocardiogram completed [id number] .[id number] [facility] Add On Lab Orders [address] [place], [address], 08/09/2022 15:17:34 03/14/2022 electrocardiogram completed MIGRATION. [id number] _[facility] Internal Med [address] [facility], [place], [address], 08/09/2022 15:17:34 03/13/2022 electrocardiogram completed MIGRATION. [id number] [facility] [address] [facility], [place], [address], 08/09/2022 15:17:34 03/17/2022 MRI, brain, w/wo contrast completed MIGRATION.[id number] [facility] (Imaging) [address] [place], [address], 08/09/2022 15:17:34 Procedure Notes None recorded. Medical Equipment None Reported. Allergies Allergen ID Allergen Name Allergen Category Reaction Reaction Severity Criticality Documentation Date Start Date Code Code System Note Provider Name and Address Organization Details Recorded Time 48406 Product containin g penicilli n (product) medicatio n Not available Not available Not available 08/09/2022 09521 8001 SNOMED Don't know his react ion just was told by his mom when he was a child . Not Available [facility] 3 15:17:28 Medications Name Sig Start Date Stop Date Status Note LastModified by Organization Details LastModified Time atorvastati n 10 mg tablet TK 1 T PO QD 12/14 completed Not Available Not Available Not Available niacin ER 750 mg tablet,exte nded release 24 hr TK 2 TS PO D 03/04 completed Not Available Not Available Not Available ciprofloxac in 500 mg tablet TK 1 T PO BID FOR 10 DAYS 02/05 completed Not Available Not Available Not Available sulfamethox azole 800 mg-trimetho prim 160 mg tablet Take 1 tablet every 12 hours by oral route for 7 days. 04/25 completed Not Available Not Available Not Available peg-electro lyte solution 420 gram oral solution MIX AND DRINK UTD 10/25 completed Not Available Not Available Not Available tamsulosin 0.4 mg capsule TK ONE C PO QD 02/10 completed Not Available Not Available Not Available cephalexin 500 mg capsule TAKE 1 CAPSULE BY MOUTH THREE TIMES DAILY X 5 DAYS 12/02 completed Not Available Not Available Not Available methylpredn isolone 4 mg tablets in a dose pack TK UTD 10/25 completed Not Available Not Available Not Available loratadine 10 mg tablet TAKE 1 TABLET BY MOUTH EVERY DAY active Not Available Not Available No t Available diazepam 5 mg tablet TAKE 1/2 TABLET BY MOUTH TWICE DAILY 04/03 completed Not Available Not Available Not Available meclizine 04/03 completed Not Available Not Available Not Available Zyrtec 03/16 completed PRN Not Available Not Available Not Available loratadine 10 mg capsule Take 1 capsule every day by oral route. 12/14 completed Not Available Not Available Not Available BinaxNOW COVID-19 Ag Self Test kit TEST DIRECTED TODAY 09/11 completed Not Available Not Available Not Available Vitals Date Recorded Body mass index (BMI) Body height Heart rate Body temperature Body weight Systolic blood pressure Diastolic blood pressure Provider Name and Address Organization Details Last Updated DateTime 2 27.8 kg/m2 177.8 cm 64 /min 97.7 [degF] 32106.9 2 g 110 mm[Hg] 70 mm[Hg] Not Available [facility] 3 15:13:38 Date Recorded Body mass index (BMI) Body height Heart rate Body temperature Body weight Systolic blood pressure Diastolic blood pressure Provider Name and Address Organization Details Last Updated DateTime 2 28.3 kg/m2 177.8 cm 62 /min 97.4 [degF] 66685.7 g 118 mm[Hg] 70 mm[Hg] Not Available [facility] 3 15:13:38 Date Recorded Body mass index (BMI) Body height Heart rate Body temperature Body weight Systolic blood pressure Diastolic blood pressure Provider Name and Address Organization Details Last Updated DateTime 2 28.3 kg/m2 177.8 cm 60 /min 97.7 [degF] 78185.7 g 114 mm[Hg] 74 mm[Hg] Not Available [facility] 3 15:13:38 Date Recorded Body height Body mass index (BMI) Body weight Provider Name and Address Organization Details Last Updated DateTime 09/11/2022 177.8 cm 27.8 kg/m2 31513.92 g Denise Perry RN [facility] [employer] 09/11/2022 10:30:05 Date Recorded Body height Body mass index (BMI) Body weight Body temperature Heart rate Systolic blood pressure Diastolic blood pressure Provider Name and Address Organization Details Last Updated DateTime 3 177.8 cm 27.5 kg/m2 78366.7 4 g 98.6 [degF] 66 /min 142 mm[Hg] 78 mm[Hg] Piedad chopra RN [facility] [employer] 3 10:14:42 Social History Question Answer Notes LastModified by Organization Details LastModified Time Tobacco Smoking Status Never Smoker Not Available [facility] 08/09/2022 15:13:11 Do You Have An Advance Directive? No MIGRATION.0301 [id number] Information not available 08/09/2022 What Is Your Level Of Alcohol Consumption? Moderate MIGRATION.0301 [id number] Information not available 08/09/2022 What Is Your Level Of Caffeine Consumption? Moderate MIGRATION.0301 [id number] Information not available 08/09/2022 In The 14 Days Before Symptom Onset, Have You Had Close Contact With A Laboratory-conf irmed COVID-19 While That Case Was Ill? No MIGRATION.0301 [id number] Information not available 08/09/2022 In The 14 Days Before Symptom Onset, Have You Had Close Contact With A Person Who Is Under Investigation For COVID-19 While That Person Was Ill? No MIGRATION.0301 [id number] Information not available 08/09/2022 What Type Of Diet Are You Following? REGULAR MIGRATION.0301 075481 Information not available 08/09/2022 Which Illicit Or Recreational Drugs Have You Used? Marijuana Smoke Marijuana MIGRATION.0301 553180 Information not available 08/09/2022 What Is The Highest Grade Or Level Of School You Have Completed Or The Highest Degree You Have Received? 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 No MIGRATION.0301 804468 Information not available 08/09/2022 What Is The Fluoride Status Of Your Home? Unknown MIGRATION.0301 662122 Information not available 08/09/2022 Are There Any Guns Present In Your Home? No MIGRATION.0301 538813 Information not available 08/09/2022 Do You Use Insect Repellent Routinely? No MIGRATION.0301 536561 Information not available 08/09/2022 Where Do You Live? [place]House MIGRATION.0301 349215 Information not available 08/09/2022 Do You Have A Medical Power Of Monorail Crane Operator? No MIGRATION.0301 208580 Information not available 08/09/2022 What Was The Date Of Your Most Recent Tobacco Screening? 03/16/2023 [email or web address] Information not available 03/16/2023 Have You Ever Been Counseled For Unhealthy Alcohol Use? No MIGRATION.0301 607016 Information not available 08/09/2022 Do You Have Any Pets? Yes MIGRATION.0301 523744 Information not available 08/09/2022 What Is Your Relationship Status? MIGRATION.0301 551790 Information not available 08/09/2022 Do You Have Smoke And Carbon Monoxide Detectors In Your Home? Yes MIGRATION.0301 807595 Information not available 08/09/2022 Are You Passively Exposed To Smoke? No MIGRATION.0301 915187 Information not available 08/09/2022 Are There Any Smokers In Your House? No MIGRATION.0301 015368 Information not available 08/09/2022 Do You Feel Stressed (tense, Restless, Nervous, Or Anxious, Or Unable To Sleep At Night)? CP8670-8 MIGRATION.0301 924176 Information not available 08/09/2022 Do You Use Any Illicit Or Recreational Drugs? Yes MIGRATION.0301 551977 Information not available 08/09/2022 Do You Use Sunscreen Routinely? No MIGRATION.0301 062312 Information not available 08/09/2022 Has Tobacco Cessation Counseling Been Provided? No MIGRATION.0301 103274 Information not available 08/09/2022 Have You Recently Traveled Abroad? No MIGRATION.0301 246233 Information not available 08/09/2022 Have You Used IV Drugs? No MIGRATION.0301 102824 Information not available 08/09/2022 Do You Have Any Dietary Restrictions? No MIGRATION.0301 484961 Information not available 08/09/2022 Do You Or Have You Ever Used Any Other Forms Of Tobacco Or Nicotine? No MIGRATION.0301 577259 Information not available 08/09/2022 Sex: Male Functional Status Question Answer Note LastModified by Organizat ion Details LastModified Time What is your exercise level? Occasional [id number].[id number] 26 Information not available 08/09/2022 Mental Status None recorded. Family History Relationship Description Onset Age of this Age Resolved Age Notes LastModified by Organization Details LastModified Time Mother Diabetes mellitus MIGRATION.724 [id number] Not available 08/09/2022 15:13:23 Maternal Grandfather Diabetes mellitus MIGRATION.839 [id number] Not available 08/09/2022 15:13:23 Maternal Grandfather Heart disease MIGRATION.396 [id number] Not available 08/09/2022 15:13:23 Maternal Uncle Diabetes mellitus MIGRATION.900 [id number] Not available 08/09/2022 15:13:23 Medical History Condition Response HAVE YOU BEEN HOSPITALIZED OR SEEN IN [facility] ER IN THE PAST YEAR ? N Immunizations Vaccine Type Date Status Note Provider [facility] e and Address Organization Details Recorded Time Tdap 02/07/2016 completed Not Available [employer] 03/23/2023 07:58:00 Past Encounters Encounter ID Performer Location Encounter Start Date Encounter Closed Date Diagnosis/Indication Diagnosis SNOMED-CT Code Diagnosis ICD10 Code Diagnosis Note [id number] Nitin Hernandez MD [facility] Internal Med [facility] [address] [place] [address] 1 12/14/2021 00:00:00 12/14/2021 17:38:15 [id number] [facility] Internal Med [facility] [address] [place] [address] 1 03/13/2022 00:00:00 03/13/2022 21:47:11 [id number] Nitin Hernandez MD [facility] Internal Med [facility] [address] [place] [address] 1 04/03/2022 00:00:00 04/04/2022 17:12:27 [id number] [facility] Internal Med [facility] [address] [place] [address] 1 09/11/2022 10:22:30 09/11/2022 10:46:15 Pure hypercholesterolemia 650733825 E78.00 History of polyp of colon 471992489 Z86.010 Vertigo 854992589 R42 [id number] Nitin Hernandez MD [facility] [place] Internal Med [facility] [address] [place] [id number] 03/16/2023 10:00:52 03/16/2023 11:04:10 Pure hypercholesterolemia 513416339 E78.00 History of polyp of colon 604956581 Z86.010 Screening for malignant neoplasm of prostate 361010086 Z12.5 Health Concerns Section Related Observation LastModified by Organization Detai ls LastModified Time None Recorded Concern Status LastModified by Organization Details LastModified Time None Recorded Advance Directives Directive N: Payers Encounter Date Sequence Insurance Name Policy Number Policy Bernard Covered Member ID Bernard Member ID Guarantor Name 09/11/2022 1 [facility] Andrae Butler [id number] Andrae Butler 03/16/2023 1 [facility] Andrae Butler [id number] Andrae Butler Notes Date Note Type Note Provider Name and Address Organization Details Recorded Time 3 text/html Vertigo seems to have resolvedHyperlipidemia does need blood workMother few days ago Nitin Hernandez MD [address], [place], [address], [employer] [facility] [employer] 09/11/2022 10:53:59 3 text/html Hyperlipidemia trying to follow a low-fat diet. History of colon polyp needs colonoscopy did not get it done last time Nitin Hernandez MD [address], [place], [address], [employer] 03/17/2023 12:47:08
--- OUTSIDE RECORDS SUMMARY | 2024-10-09 01:06 | XMS_ITS | Continuity of Care Document ---
Author Organization [facility] Address [address] [place] [address] Phone Care Team Providers Care Top Lift Nailer Name Role Phone Rodriguez OD, Adan Unavailable Unavailable Advance Directives Directive Yes / No Effective Date File Name No Information Encounters Encounter Description Practice Location Reason(s) For Visit Diagnoses Date Provider Providers Copied on Encounter [facility], [address] [place], [place], [id number], [place] tel:[phone] [place] No Information Nov-0 6-200 2 Rodriguez OD Adan. [address] [facility] [place] , [address], [place], [address], [place]. tel:[phone] Family History Family Member Type Diagnosis Age At Onset No Information Payers Payer name Insurance type Covered republican ID Authoriza tion(s) No Information Social History Type Description Quantity Date Captured Comments Sex Male Smoking Status No Information Chief Complaint And Reason For Visit No Information Reason For Referral Reason For Referral No Information History Of Present Illness Encounter Date Complaint History Of Prese nt Illness No Information Functional Status Date Functional Assessmen t No Information Instructions Date Instruction Additional Infor mation No Information Assessments Type Assessment Date No Information Patient Care Teams Name Effective Dates (start - stop) Status Members No Information
--- OUTSIDE RECORDS SUMMARY | 2024-10-09 01:06 | XMS_ITS | Clinical Summary ---
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 Gender Identity Not on file Sexual Orientation Not on file Plan of Treatment Health Maintenance Due Date Last Done Comments DTAP/TDAP/TD VACCINES (1 - Tdap) 1986 HEPATITIS B VACCINES (1 of 3 - 19+ 3-dose series) 12/1985 COLORECTAL SCREENING 02/16/2012 Colorectal Cancer Screening 02/16/2012 FIT-DNA Q 3 years 02/16/2012 FIT/FOBT Q 1 year 02/16/2012 Flex Sig/CT Colonography Q 5 years 02/16/2012 ZOSTER VACCINE (1 of 2) 2017 INFLUENZA VACCINE (#1) 2024 Care Teams Test Worker Relationship Specialty Start Date End Date Nitin Hernandez MD [address] [place] [address] PCP - General 10/15/00
--- OUTSIDE RECORDS SUMMARY | 2024-10-09 01:06 | XMS_ITS | Clinical Summary ---
Author Organization [facility] [address] Address [address] [place] [address] Care Team Providers Care Claims Analyst Name Role Phone Nitin Hernandez MD Primary Care Provider [phone] Allergies Active Allergy Reactions Criticality Noted Date Comments Penicillins Unknown 12/16/2021 Medications atorvastatin (LIPITOR) 10 mg tablet atorvastatin 10 mg tablet TK 1 T PO QD Active loratadine 10 mg capsule daily Active Active Problems No known active problems Surgical History Surgery Date Site/Laterality Comments NECK SURGERY Medical History Medical History Date Comments Chronic rhinitis Inguinal hernia Vertigo Pure hypercholesterolemia Family History Medical History Relation Name Comments Diabetes Mother Relation Name Status Comments Mother Social History Tobacco Use Types Packs/Day Years Used Date Smoking Tobacco: Never Smokeless Tobacco: Never Personal Safety Answer Date Recorded Getting School Help Needed Not on file 08/25 Sex and Gender Information Value Date Recorded Sex Assigned at Not on file Legal Sex Male 2:13 PM CDT Gender Identity Not on file Sexual Orientation Not on file Obstetrics History Last Filed Vital Signs Vital Sign Reading Time Taken Comments Blood Pressure - - Pulse - - Temperature - - Respiratory Rate 17 12/16/2021 1:21 PM CDT Oxygen Saturation - - Inhaled Oxygen Concentration - - Weight 86.2 kg (190 lb) 12/16/2021 1:21 PM CDT Height 180.3 cm (5' 11 ) 12/16/2021 1:21 PM CDT Body Mass Index 26.5 12/16/2021 1:21 PM CDT Plan of Treatment Health Maintenance Due Date Last Done Comments Colon Cancer Screening-Colonoscopy 1967 Depression Screening 1967 Hepatitis C Screening 1967 Prostate Cancer Screening-PSA 1967 Hepatitis B Screening 1985 Regular Well Visit/Exam 18-64 1985 Zoster Vaccine (1 of 2) 2017 Covid-19 Vaccine (3 - 2023-2 5 season) 2024 11/02/2020, 10/16/2020 Influenza Vaccine (#1) 2024 DTaP/Tdap/Td Vaccine (2 - Td or Tdap) 02/06/2026 02/07/2016 Pneumococcal vaccine <65 Aged Out No longer eligible based on patient's age to complete this topic Insurance Care Teams Claims Analyst Relationship Specialty Start Date End Date Nitin Hernandez MD PCP - General Internal Medicine 12/14/21
--- OUTSIDE RECORDS SUMMARY | 2024-10-09 01:06 | XMS_ITS | Referral Summary ---
Author Organization [facility] [address] Address [address] [place] [address] Care Team Providers Care Grid Inspector Name Role Phone Nitin Hernandez MD Primary Care Provider [phone] Allergies Active Allergy Reactions Criticality Noted Date Comments Penicillins Unknown 12/16/2021 Medications atorvastatin (LIPITOR) 10 mg tablet atorvastatin 10 mg tablet TK 1 T PO QD Active loratadine 10 mg capsule daily Active Active Problems No known active problems Social History Tobacco Use Types Packs/Day Years Used Date Smoking Tobacco: Never Smokeless Tobacco: Never Personal Safety Answer Date Recorded Getting School Help Needed Not on file 08/25 Sex and Gender Information Value Date Recorded Sex Assigned at Not on file Legal Sex Male 2:13 PM CDT Gender Identity Not on file Sexual Orientation Not on file Last Filed Vital Signs Vital Sign Reading [...] 12/16/2021 1:21 PM CDT Plan of Treatment Not on file Insurance [facility] Care Teams Grid Inspector Relationship Specialty Start Date End Date Nitin Hernandez MD PCP - General Internal Medicine 12/14/21
--- OUTSIDE RECORDS SUMMARY | 2024-10-09 01:06 | XMS_ITS | Encounter Summary ---
Author Organization [employer] Address 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
--- OUTSIDE RECORDS SUMMARY | 2024-10-09 01:06 | XMS_ITS | Encounter Summary ---
Author Organization [employer] Address 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
--- OUTSIDE RECORDS SUMMARY | 2024-10-09 01:06 | XMS_ITS | Data Portability ---
Author Organization [facility] Pina [facility] Address [address] [place] [address] Care Team Providers Care Security Installation Technician Name Role Phone TIMA NITIN Primary Care Provider Assessment Encounter Date Assessment Date Assessment LastModified by Organization Details LastModified Time 03/03/2024 03/03/2024 colonoscopy. Loratadine. Blood work. Needs paperwork filled out for his employer to get money off his insurance premiums see me in 6 months. Flu COVID tetanus shingles he will consider [email or web address] Not available 03/03/2024 22:21:23 09/02/2024 09/02/2024 inguinal pain have General surgery see 09 October end up with Urology and I will send him to the surgeon who treated him before healthy lifestyle care instructions see me in 6 months [email or web address] Not available 09/05/2024 21:11:56 Plan of Treatment Reminders Order Date Submit Date Provider Last Modified By Organization Details Last Modified Time Details Appointments ANY 15 2024 03:00P M Nitin Hernandez MD Not available Not available Not available Lab CMP, serum or plasma 2023 024 CANUTE [facility], [address], [place], [address], 03/11/2024 03:37:11 lipid panel, serum 2023 024 [facility], [address], [place], [address], 03/11/2024 03:37:11 CBC w/ auto diff 2023 024 CANUTE [facility], [address], [place], [address], 03/11/2024 03:37:12 HbA1c (hemoglob in A1c), blood 2023 024 CHICA [facility], [address], [place], [address], 03/11/2024 03:37:12 Referral general surgeon referral 2024 025 CHICA Ramirez MD, [address], [address] [place], [address], 10/05/2024 18:51:23 Procedures colonosco py procedure (PROC) 2023 024 [facility], [address], [address], [place], [address], 09/02/2024 16:28:36 Surgeries None recorded. Imaging None recorded. Medication Orders loratadin e 10 mg tablet 2023 024 [id number], [address], [place], [place], [id number], 03/03/2024 17:18:55 Patient TargetsNo targets recorded. Patient Instructions Encounter Date Encounter Id Patient Instructions Last Modified By Organization Details Last Modified Time 09/02/2024 [id number] A healthy lifestyle: care instructions [email or web address] Not available 09/02/2024 20:43:49 Reason for Referral General Surgeon Referral for Inguinal pain Referring Physician: Nitin Hernandez, Internal Medicine, Encounter Date: 09/02/2024 Results Created Date Observation Date Name Description Value Unit Range Abnormal Flag Note LastModifiedBy Organization Detail LastModifiedTime 03/10/20 24 03/11/2024 LIPID PANEL cholesterol, total 161 mg/dL 100-19 9 Not Available [facility] ([facility]) [address] [facility], [place], [address], 03/11/2024 03:37:11 03/10/20 24 03/11/2024 LIPID PANEL triglyceride s 184 mg/dL 0-149 above high normal Not Available [facility] ([facility]) [address] [facility] [place], [address], 03/11/2024 03:37:11 03/10/20 24 03/11/2024 LIPID PANEL HDL cholesterol 33 mg/dL >39 below low normal Not Available [facility] ([facility]) [address] [facility] [place], [address], 03/11/2024 03:37:11 03/10/20 24 03/11/2024 LIPID PANEL VLDL cholesterol jimenez 32 mg/dL 5-40 Not Available [facility] ([facility]) [address] [place], [address], 03/11/2024 03:37:11 03/10/20 24 03/11/2024 LIPID PANEL LDL chol calc ([facility]) 96 mg/dL 0-99 Not Available [facility] ([facility]) [address] [place] [place], [address], 03/11/2024 03:37:11 03/10/20 24 03/11/2024 COMP. METAB OLIC PANEL (14) glucose 110 mg/dL 70-99 above high normal Not Available [facility] ([facility]) [address] [facility] [place], [address], 03/11/2024 03:37:11 03/10/20 24 03/11/2024 COMP. METAB OLIC PANEL (14) BUN 15 mg/dL 6-24 Not Available [facility] ([facility]) [address] [facility] [place], [address], 03/11/2024 03:37:11 03/10/20 24 03/11/2024 COMP. METAB OLIC PANEL (14) creatinine 0.95 mg/dL 0.76-1 .27 Not Available [facility] ([facility]) [address] [place], [address], 03/11/2024 03:37:11 03/10/20 24 03/11/2024 COMP. METAB OLIC PANEL (14) eGFR 93 mL/mi n/1.7 3 >59 Not Available [facility] ([facility]) [address] [facility], [place], [address], 03/11/2024 03:37:11 03/10/20 24 03/11/2024 COMP. METAB OLIC PANEL (14) BUN/creatini ne ratio 16 9-20 Not Available [facility] ([facility]) [address] [facility], [place], [address], 03/11/2024 03:37:11 03/10/20 24 03/11/2024 COMP. METAB OLIC PANEL (14) sodium 141 mmol/ L 134-14 4 Not Available [facility] ([facility]) [address] [facility], [place], [address], 03/11/2024 03:37:11 03/10/20 24 03/11/2024 COMP. METAB OLIC PANEL (14) potassium 4.5 mmol/ L 3.5-5. 2 Not Available [facility] ([facility]) [address] [facility], [place], [address], 03/11/2024 03:37:11 03/10/20 24 03/11/2024 COMP. METAB OLIC PANEL (14) chloride 101 mmol/ L 96-106 Not Available [facility] ([facility]) [address] [facility], [place], [address], 03/11/2024 03:37:11 03/10/20 24 03/11/2024 COMP. METAB OLIC PANEL (14) carbon dioxide, total 26 mmol/ L 20-29 Not Available [facility] ([facility]) [address] [facility], [place], [address], 03/11/2024 03:37:11 03/10/20 24 03/11/2024 COMP. METAB OLIC PANEL (14) calcium 9.5 mg/dL 8.7-10 .2 Not Available [facility] ([facility]) [address] [place], [address], 03/11/2024 03:37:11 03/10/20 24 03/11/2024 COMP. METAB OLIC PANEL (14) protein, total 6.9 g/dL 6.0-8. 5 Not Available [facility] ([facility]) [address] [place], [address], 03/11/2024 03:37:11 03/10/20 24 03/11/2024 COMP. METAB OLIC PANEL (14) albumin 4.4 g/dL 3.8-4. 9 Not Available [facility] ([facility]) [address] [place], [address], 03/11/2024 03:37:11 03/10/20 24 03/11/2024 COMP. METAB OLIC PANEL (14) globulin, total 2.5 g/dL 1.5-4. 5 Not Available [facility] ([facility]) [address] [place], [address], 03/11/2024 03:37:11 03/10/20 24 03/11/2024 COMP. METAB OLIC PANEL (14) bilirubin, total 0.6 mg/dL 0.0-1. 2 Not Available [facility] ([facility]) [address] [place], [address], 03/11/2024 03:37:11 03/10/20 24 03/11/2024 COMP. METAB OLIC PANEL (14) alkaline phosphatase 96 IU/L 44-121 Not Available [facility] ([facility]) [address] [place], [address], 03/11/2024 03:37:11 03/10/20 24 03/11/2024 COMP. METAB OLIC PANEL (14) AST (SGOT) 18 IU/L 0-40 Not Available [facility] ([facility]) [address] [facility], [place], [address], 03/11/2024 03:37:11 03/10/20 24 03/11/2024 COMP. METAB OLIC PANEL (14) ALT (SGPT) 18 IU/L 0-44 Not Available [facility] ([facility]) [address] [facility], [place], [address], 03/11/2024 03:37:11 03/10/20 24 03/11/2024 HEMOG LOBIN A1C hemoglobin A1C 5.8 % 4.8-5. 6 above high normal Predi abete s: 5.7 - 6.4 Diabe irish: >6.4 Glyce yani contr ol for adult s with diabe irish: <7.0 Not Available [facility] ([facility]) [address] [facility], [place], [address], 03/11/2024 03:37:12 03/10/20 24 03/10/2024 CBC WITH DIFFE RENTI AL/PL ATELE T WBC 8.7 x10e3 /uL 3.4-10 .8 Not Available [facility] ([facility]) [address] [facility], [place], [address], 03/11/2024 03:37:12 03/10/20 24 03/10/2024 CBC WITH DIFFE RENTI AL/PL ATELE T RBC 4.39 x10e6 /uL 4.14-5 .80 Not Available [facility] ([facility]) [address] [facility], [place], [address], 03/11/2024 03:37:12 03/10/20 24 03/10/2024 CBC WITH DIFFE RENTI AL/PL ATELE T hemoglobin 14.0 g/dL 13.0-1 7.7 Not Available [facility] ([facility]) [address] [facility], [place], [address], 03/11/2024 03:37:12 03/10/20 24 03/10/2024 CBC WITH DIFFE RENTI AL/PL ATELE T hematocrit 43.1 % 37.5-5 1.0 Not Available [facility] ([facility]) [address] [facility], [place], [address], 03/11/2024 03:37:12 03/10/20 24 03/10/2024 CBC WITH DIFFE RENTI AL/PL ATELE T MCV 98 fL 79-97 above high normal Not Available [facility] ([facility]) [address] [place], [address], 03/11/2024 03:37:12 03/10/20 24 03/10/2024 CBC WITH DIFFE RENTI AL/PL ATELE T MCH 31.9 pg 26.6-3 3.0 Not Available [facility] ([facility]) [address] [facility], [place], [address], 03/11/2024 03:37:12 03/10/20 24 03/10/2024 CBC WITH DIFFE RENTI AL/PL ATELE T MCHC 32.5 g/dL 31.5-3 5.7 Not Available [facility] ([facility]) [address] [facility], [place], [address], 03/11/2024 03:37:12 03/10/20 24 03/10/2024 CBC WITH DIFFE RENTI AL/PL ATELE T RDW 12.8 % 11.6-1 5.4 Not Available [facility] ([facility]) [address] [place], [address], 03/11/2024 03:37:12 03/10/20 24 03/10/2024 CBC WITH DIFFE RENTI AL/PL ATELE T platelets 259 x10e3 /uL 150-45 0 Not Available [facility] ([facility]) [address] [place], [address], 03/11/2024 03:37:12 03/10/20 24 03/10/2024 CBC WITH DIFFE RENTI AL/PL ATELE T neutrophils 49 % notest ab. Not Available [facility] ([facility]) [address] [facility], [place], [address], 03/11/2024 03:37:12 03/10/20 24 03/10/2024 CBC WITH DIFFE RENTI AL/PL ATELE T lymphs 39 % notest ab. Not Available [facility] ([facility]) [address] [facility], [place], [address], 03/11/2024 03:37:12 03/10/20 24 03/10/2024 CBC WITH DIFFE RENTI AL/PL ATELE T monocytes 7 % notest ab. Not Available [facility] ([facility]) [address] [facility], [place], [address], 03/11/2024 03:37:12 03/10/20 24 03/10/2024 CBC WITH DIFFE RENTI AL/PL ATELE T eos 4 % notest ab. Not Available [facility] ([facility]) [address] [facility], [place], [address], 03/11/2024 03:37:12 03/10/20 24 03/10/2024 CBC WITH DIFFE RENTI AL/PL ATELE T basos 1 % notest ab. Not Available [facility] ([facility]) [address] [facility], [place], [address], 03/11/2024 03:37:12 03/10/20 24 03/10/2024 CBC WITH DIFFE RENTI AL/PL ATELE T neutrophils (absolute) 4.3 x10e3 /uL 1.4-7. 0 Not Available [facility] ([facility]) [address] [facility], [place], [address], 03/11/2024 03:37:12 03/10/20 24 03/10/2024 CBC WITH DIFFE RENTI AL/PL ATELE T lymphs (absolute) 3.4 x10e3 /uL 0.7-3. 1 above high normal Not Available [facility] ([facility]) [address] [facility], [place], [address], 03/11/2024 03:37:12 03/10/20 24 03/10/2024 CBC WITH DIFFE RENTI AL/PL ATELE T monocytes(ab solute) 0.6 x10e3 /uL 0.1-0. 9 Not Available [facility] ([facility]) [address] [facility], [place], [address], 03/11/2024 03:37:12 03/10/20 24 03/10/2024 CBC WITH DIFFE RENTI AL/PL ATELE T eos (absolute) 0.3 x10e3 /uL 0.0-0. 4 Not Available [facility] ([facility]) [address] [facility], [place], [address], 03/11/2024 03:37:12 03/10/20 24 03/10/2024 CBC WITH DIFFE RENTI AL/PL ATELE T baso (absolute) 0.0 x10e3 /uL 0.0-0. 2 Not Available [facility] ([facility]) [address] [facility], [place], [address], 03/11/2024 03:37:12 03/10/20 24 03/10/2024 CBC WITH DIFFE RENTI AL/PL ATELE T immature granulocytes 0 % notest ab. Not Available [facility] ([facility]) [address] [facility], [place], [address], 03/11/2024 03:37:12 03/10/20 24 03/10/2024 CBC WITH DIFFE RENTI AL/PL ATELE T immature grans (abs) 0.0 x10e3 /uL 0.0-0. 1 Not Available [facility] ([facility]) [address] [place], [address], 03/11/2024 03:37:12 03/03/20 24 05/21/2019 colon oscop y proce dure (PROC ) No observ ation record ed. [facility] Not Available 2023 15:52:43 Result Notes None recorded. Procedures Surgical History None recorded. Imaging Results Imaging Date Name Status LastModified by Organiz ation Details LastModified Time 05/21/2019 colonoscopy procedure (PROC) completed [facility] Information not available 03/03/2024 15:52:43 Procedure Notes None recorded. Medical Equipment None Reported. Allergies Allergen ID Allergen Name Allergen Category Reaction Reaction Severity Criticality Documentation Date Start Date Code Code System Note Provider Name and Address Organization Details Recorded Time 262403 Product containin g penicilli n (product) medicatio n Not available Not available low 03/03/2024 47908 8001 SNOMED Frederick nt does not know what his react ion is Mildred Gusman MA [facility], [place] - [facility] 4 15:06:52 Medications Name Sig Start Date Stop Date Status Note LastModified by Organization Details LastModified Time loratadine 10 mg tablet TAKE 1 TABLET BY MOUTH EVERY DAY active Not Available Not Available No t Available loratadine 10 mg capsule Take 1 capsule every day by oral route. 025 active Not Available Not Available Not Avai lable Vitals Date Recorded Body height Body mass index (BMI) Body weight Heart rate Oxygen saturation Oxygen saturation in Arterial blood by Pulse oximetry Systolic blood pressure Diastolic blood pressure Provider Name and Address Organization Details Last Updated DateTime 4 180.34 cm 27.3 kg/m2 92402.3 1 g 65 /min 97 % 97 % 130 mm[Hg] 68 mm[Hg] Mildred Gusman MA [place] - [facility] 4 15:13:44 Date Recorded Body height Body mass index (BMI) Body weight Heart rate Oxygen saturation Oxygen saturation in Arterial blood by Pulse oximetry Systolic blood pressure Diastolic blood pressure Provider Name and Address Organization Details Last Updated DateTime 5 180.34 cm 26.4 kg/m2 72330.7 5 g 54 /min 97 % 97 % 114 mm[Hg] 74 mm[Hg] Rufina Mcclendon MA [place] - [facility] 5 16:25:31 Social History Question Answer Notes LastModified by Organizat ion Details LastModified Time Tobacco Smoking Status Never Smoker Mildred Gusman MA [facility], [place] - [facility] 03/03/2024 15:08:58 Do You Have An Advance Directive? No Information not available 03/03/2024 What Is Your Level Of Alcohol Consumption? Moderate Information not available 03/03/2024 How Many Years Have You Consumed Alcohol? 30 Information not available 03/03/2024 Are You Blind Or Do You Have Difficulty Seeing? Yes Glasses Information not available 03/03/2024 What Is Your Level Of Caffeine Consumption? Moderate Information not available 03/03/2024 In The 14 Days Before Symptom Onset, Have You Had Close Contact With A Laboratory-confir med COVID-19 While That Case Was Ill? No Information not available 03/03/2024 In The 14 Days Before Symptom Onset, Have You Had Close Contact With A Person Who Is Under Investigation For COVID-19 While That Person Was Ill? No Information not available 03/03/2024 Have You Been To An Area Known To Be High Risk For COVID-19? No Information not available 03/03/2024 Are You Currently Employed? Yes Information not available 03/03/2024 Are You Deaf Or Do You Have Serious Difficulty Hearing? No Information not available 03/03/2024 What Type Of Diet Are You Following? 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 No Information not available 03/03/2024 What Was The Date Of Your Most Recent Tobacco Screening? 09/02/2024 [email or web address] Information not available 09/02/2024 What Is Your Relationship Status? Information not available 03/03/2024 Do You Use Your Seat Belt Or Car Seat Routinely? Yes Information not available 03/03/2024 Do You Have Smoke And Carbon Monoxide Detectors In Your Home? Yes Information not available 03/03/2024 Do You Feel Stressed (tense, Restless, Nervous, Or Anxious, Or Unable To Sleep At Night)? [id number] Information not available 03/03/2024 Do You Use Any Illicit Or Recreational Drugs? No Information not available 03/03/2024 Do You Use Sunscreen Routinely? Yes Information not available 03/03/2024 Has Tobacco Cessation Counseling Been Provided? No Information not available 03/03/2024 Do You Or Have You Ever Used Any Other Forms Of Tobacco Or Nicotine? No Information not available 03/03/2024 Sex: Male Functional Status Question Answer Note LastModified by Organization D etails LastModified Time Are you able to care for yourself? Yes Information n ot available 03/03/2024 What is your exercise level? None Information not available 03/03/2024 Mental Status None recorded. Family History Relationship Description Onset Age of this Age Resolved Age Notes LastModified by Organization Details LastModified Time Sister Asthma [email or web address] Not available 15:08:04 Sister Harmful pattern of use of alcohol mebyma Not available 2023 15:08:11 Mother Diabetes mellitus mebyma Not available 2023 15:08:33 Medical History Condition Response Coronary Artery Disease N Other N Atrial Fibrillation N High Blood Pressure N Thyroid Problems N Kidney or Bladder Problems N Depression N COPD N Blood Clots N GI Problems N Have you had a mammogram in the last yea r? N Skin Problems N Anemia N Heart Attack (ID) N Diabetes N Anxiety Disorder N Muscle, Joint, or Bone Problems N Seizures/Epilepsy N Have you had a colonoscopy in the last 1 0 years? N Acid Reflux (GERD) N Cancer N Stroke N Allergies N Asthma N Have you had a PSA blood test in the las t year? N High Cholesterol N Hepatitis N Liver Disease N Headaches N Osteoporosis N Heart Failure N Immunizations Vaccine Type Date Status Note Provider Nam e and Address Organization Details Recorded Time COVID-19, mRNA, LNP-S, PF, 30 mcg/0.3 mL dose 10/16/2020 completed LALITA [place], [place] - [facility] 09/02/2024 16:18:28 COVID-19, mRNA, LNP-S, PF, 30 mcg/0.3 mL dose 11/02/2020 completed LALITA [place], [place] - [facility] 09/02/2024 16:18:28 Tdap 02/07/2016 completed Rufinarosaura Mcclendon MA null, [facility] 09/02/2024 16:18:28 Past Encounters Encounter ID Performer Location Encounter Start Date Encounter Closed Date Diagnosis/Indication Diagnosis SNOMED-CT Code Diagnosis ICD10 Code Diagnosis Note [id number] Nitin Hernandez MD [facility] [address] [place] [address] 03/03/2024 14:44:12 03/03/2024 16:21:08 Adult health examination 994763548 Z00.00 History of polyp of colon 201818791 Z86.010 Rhinitis 80237814 J00 [id number] Nitin Hernandez MD [facility] (Adult Med) [address] [place] [address] 09/02/2024 16:07:39 09/02/2024 17:35:07 Body mass index 25-29 - overweight 049799023 Z68.26 Overweight 616598584 E66 .3 Inguinal pain 033143112 R10.2 Health Concerns Section Related Observation LastModified by Organization Detai ls LastModified Time None Recorded Concern Status LastModified by Organization Details LastModified Time None Recorded Advance Directives Directive N: Payers Encounter Date Sequence Insurance Name Policy Number Policy Bernard Covered Member ID Bernard Member ID Guarantor Name 03/03/2024 1 [place] [id number] Andrae Rodgers [id number] Andrae Rodgers 03/03/2024 1 [place] [id number] Andrae Rodgers [id number] Andrae Rodgers 09/02/2024 1 [place] [id number] Andrae Rodgers [id number] Andrae Rodgers Notes Date Note Type Note Provider Name and Address Organization Details Recorded Time 03/03/2024 text/html rhinitis needs loratadine colon polyp needs his colonoscopy Nitin Hernandez MD Attn: [address] [place], [address], [facility] 03/03/2024 22:21:42 09/02/2024 text/html allergies doing fine inguinal pain he has had surgery there before and he just has an achiness. This all started after doing some shoveling snow in June Nitin Hernandez MD Attn: [address] [place], [address], [place] [facility] 09/05/2024 21:12:13
[2024-10-09 06:44] VITALS: BP 112/68; PULSE 71; RESP 18; TEMP 36.4; O2SAT 97; BMI 26.0
[2024-10-09] MEDS: LACTATED RINGERS 1,000 ML 150 ML IV CONT (06:55)
--- NOTE | 2024-10-09 07:04 | WPDANESEPPF ---
Anes - Initial Pre Proc Eval Procedure: Operation Date: 10/09/24 08:00 Proposed Procedures p Screening Colonoscopy - Jose Alan MD Date/Time: 10/09/24 07:04 Surgeon: Jose Alan MD Pre Op Diagnosis: Screening Patient Data Age: 59 Gender: M Height: 1.8 m Weight: 84.7 kg Last Vital Signs Temp 97.6 F 10/09/24 06:44 Pulse 71 10/09/24 06:44 Resp 18 10/09/24 06:44 BP 112/68 10/09/24 06:44 Pulse Ox 97 10/09/24 06:44 O2 Del Method Room Air 10/09/24 06:44 Allergies Allergy/AdvReac Type Severity Reaction Status Date / Time Penicillins Allergy Unknown unknown Verified 10/09/24 06:43 Home Medications ?Medication ?Instructions ?Recorded ?Confirmed ?Type loratadine 10 mg tablet 10 mg PO DAILY 09/22/24 10/09/24 History Patient hx anesthesia problems: none Family hx anesthesia problems: none Results Review: All pre-operative results and documents have been reviewed as part of the pre-operative evaluation. [facility] Family History Family History Sibling Asthma Thyroid disorder Grandparent Cancer Hypertension Heart disease Mother Diabetes mellitus Other Thyroid activity decreased Social History Social History Smoking status: Never smoker Alcohol intake: current Substance use: current Substance use type: marijuana Other substance usage details: week ago Anes - Eval Final PreProcedure Day of Procedure 10/09/24 07:04 Patient weight: normal Lungs: normal air movement Airway: Mallampati scale and special considerations (Upper incisors cracked, none loose. ) poor dentition Neurological: alert and oriented Last oral intake: >/= 8 hours ASA classification: I Emergent: no Anesthetic plan: proceed Anesthesia type and monitoring: general GIVS and standard monitoring Results Review: All pre-operative results and documents have been reviewed as part of the pre-operative evaluation. Active w yard work on the weekends, no cp or sob. Informed Consent: The patient's anesthetic plan and its attendant risks and benefits were discussed with the patient/family/POA. Questions were solicited and answers provided to the satisfaction of the patient/family/POA.
--- NOTE | 2024-10-09 07:51 | PM.HPGS ---
History of Present Illness History of Present Illness Consent: Risks, benefits, and alternatives have been discussed and questions answered. Patient agrees to proceed with procedure. Chief complaint: Screening Narrative: Andrae Rodgers is a 59 year old male with colon polyp 5 years ago Review of Systems Review of Systems: All systems reviewed & are unremarkable except as noted in HPI and below PMFSH Past Medical History Medical History (Updated 10/09/24 @ 07:52 by Jose Alan MD) Colon polyp Family History Family History Sibling Asthma Thyroid disorder Grandparent Cancer Hypertension Heart disease Mother Diabetes mellitus Other Thyroid activity decreased Social History Social History Smoking status: Never smoker Alcohol intake: current Substance use: current Substance use type: marijuana Other substance usage details: week ago Meds Home Medications and Allergies Home Medications ?Medication ?Instructions ?Recorded ?Confirmed ?Type loratadine 10 mg tablet 10 mg PO DAILY 09/22/24 10/09/24 History Allergies Allergy/AdvReac Type Severity Reaction Status Date / Time Penicillins Allergy Unknown unknown Verified 10/09/24 06:43 Vital Signs Vital Signs - 24 hr 10/09/24 06:44 Temperature 97.6 F Pulse Rate 71 Respiratory Rate 18 Blood Pressure 112/68 Pulse Oximetry 97 Oxygen Delivery Room Air Exam Const: General: comfortable and no acute distress HENMT: Face/Nose/Sinus: Normal nares present Eyes: General: appearance normal, both eyes and all related structures Neck: Neck: no JVD Resp: Auscultation: clear to auscultation bilaterally Cardio: Rate: regular rate Rhythm: regular rhythm GI: Inspection: non-distended GI Palp: Yes Soft to palpation Skin: General skin exam: normal color Neuro: General: gait normal Speech: normal speech Extrem: General: normal to inspection Psych: Mental Status: mental status grossly normal Assessment and Plan Assessment and plan (1) Colon polyp: Code(s): K63.5 - Polyp of colon Status: Acute Assessment and Plan: colonoscopy
[2024-10-09 08:09] VITALS: BP 114/72; PULSE 79; RESP 20; O2SAT 97
[2024-10-09 08:19] VITALS: BP 117/83; PULSE 64; RESP 17; O2SAT 100
[2024-10-09 08:29] VITALS: BP 122/87; PULSE 76; RESP 17; O2SAT 100
== END 2024-10-09 08:38 | disposition home or self-care (01) ==
PROVIDERS: PCP Internal Medicine; Referring Provider Internal Medicine; Visit Provider Internal Medicine Gastroenterology
PROC: 0DJD8ZZ Inspection of Lower Intestinal Tract, Via Natural or Artificial Opening Endoscopic (ICD-10-PCS; CPT 45378; principal; 2024-10-09 08:00)
DX: Z12.11 Encounter for screening for malignant neoplasm of colon (principal); D12.5 Benign neoplasm of sigmoid colon; K64.8 Other hemorrhoids; F12.90 Cannabis use, unspecified, uncomplicated; Z80.9 Family history of malignant neoplasm, unspecified; Z82.49 Family history of ischemic heart disease and other diseases of the circulatory system
CPT/HCPCS: 45385; 88305; J2003; J2704; J7120

== ENCOUNTER 2024-11-14 16:53 | Outpatient (CLI) | payer OTHER, SELFPAY ==
--- OUTSIDE RECORDS SUMMARY | 2024-11-14 17:03 | XMS_ITS | Referral Summary ---
Author Organization [facility] [[email or web address]] [address] [place] Address [address] [place] [address] Care Team Providers Care Brim Setter Name Role Phone Nitin Hernandez MD Primary Care Provider [phone] Allergies Active Allergy Reactions Criticality Noted Date [...] 1:21 PM CDT Height 180.3 cm (5' 11) 12/16/2021 1:21 PM CDT Body Mass Index 26.5 12/16/2021 1:21 PM CDT Plan of Treatment Not on file Insurance [facility] H[facility]/PPO Address: [facility] [address] [place] [address] Care Teams Brim Setter Relationship Specialty Start Date End Date Nitin Hernandez MD PCP - General Internal Medicine 12/14/21
--- OUTSIDE RECORDS SUMMARY | 2024-11-14 17:03 | XMS_ITS | Clinical Summary ---
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
--- OUTSIDE RECORDS SUMMARY | 2024-11-14 17:03 | XMS_ITS | CONTINUITY OF CARE DOCUMENT ---
Author Name kristina acevedo Address Unknown Organization [facility] Office Address [address] [place] [address] Phone [phone] Care Team Providers Care Radiology Aide Name Role Phone Janelle Herrera MD Unavailable [phone] Janelle Herrera MD Unavailable [phone] INSURANCE PROVIDERS Payer name Policy type / Coverage type [place] [employer] republic[id number] [id number]
--- OUTSIDE RECORDS SUMMARY | 2024-11-14 17:03 | XMS_ITS | Data Portability ---
Author Organization [facility] Address [address] [place] [address] Care Team Providers Care Roller Man Name Role Phone TIMA NITIN Primary Care Provider Assessment Encounter Date Assessment Date Assessment LastModified by Organization Details LastModified Time 03/03/2024 03/03/2024 colonoscopy. Loratadine. Blood work. Needs paperwork filled out for his employer to get money off his insurance premiums see me in 6 months. Flu COVID tetanus shingles he will consider [email or web address] Not available 03/03/2024 22:21:23 09/02/2024 09/02/2024 inguinal pain have General surgery see 09 October end up with Urology and I will send him to the surgeon who treated him before healthy lifestyle care instructions see me in 6 months [email or web address] Not available 09/05/2024 21:11:56 Plan of Treatment Reminders Order Date Submit Date Provider Last Modified By Organization Details Last Modified Time Details Appointments ANY 15 2024 03:00P M Nitin Hernandez MD Not available Not available Not available Lab CMP, serum or plasma 2023 024 [facility], [address], [place], [address], 03/11/2024 03:37:11 lipid panel, serum 2023 024 [facility], [address], [place], [address], 03/11/2024 03:37:11 CBC w/ auto diff 2023 024 [facility], [address], [place], [address], 03/11/2024 03:37:12 HbA1c (hemoglob in A1c), blood 2023 024 [facility], [address], [place], [address], 03/11/2024 03:37:12 Referral general surgeon referral 2024 025 CHICA Ramirez MD, [address], [address] [place], [address], 10/05/2024 18:51:23 Procedures colonosco py procedure (PROC) 2023 024 [facility], [address], [address], [place], [address], 11/04/2024 16:21:38 Surgeries None recorded. Imaging None recorded. Medication Orders loratadin e 10 mg tablet 2023 024 [id number], [address], [place], [place], [id number], 03/03/2024 17:18:55 Patient TargetsNo targets recorded. Patient Instructions Encounter Date Encounter Id Patient Instructions Last Modified By Organization Details Last Modified Time 09/02/2024 [id number] A healthy lifestyle: care instructions [email or web address] Not available 09/02/2024 20:43:49 Reason for Referral General Surgeon Referral for Inguinal pain Referring Physician: Nitin Hernandez, Internal Medicine, Encounter Date: 09/02/2024 Results Created Date Observation Date Name Description Value Unit Range Abnormal Flag Note LastModifiedBy Organization Detail LastModifiedTime 03/10/20 24 03/11/2024 LIPID PANEL cholesterol, total 161 mg/dL 100-19 9 Not Available [facility] ([facility]) [address] [facility], [place], [address], 03/11/2024 03:37:11 03/10/20 24 03/11/2024 LIPID PANEL triglyceride s 184 mg/dL 0-149 above high normal Not Available [facility] ([facility]) [address] [facility] [place], [address], 03/11/2024 03:37:11 03/10/20 24 03/11/2024 LIPID PANEL HDL cholesterol 33 mg/dL >39 below low normal Not Available [facility] ([facility]) [address] [facility] [place], [address], 03/11/2024 03:37:11 03/10/20 24 03/11/2024 LIPID PANEL VLDL cholesterol jimenez 32 mg/dL 5-40 Not Available [facility] ([facility]) [address] [place], [address], 03/11/2024 03:37:11 03/10/20 24 03/11/2024 LIPID PANEL LDL chol calc ([facility]) 96 mg/dL 0-99 Not Available [facility] ([facility]) [address] [facility] [place], [address], 03/11/2024 03:37:11 03/10/20 24 03/11/2024 COMP. METAB OLIC PANEL (14) glucose 110 mg/dL 70-99 above high normal Not Available [facility] ([facility]) [address] [facility] [place], [address], 03/11/2024 03:37:11 03/10/20 24 03/11/2024 COMP. METAB OLIC PANEL (14) BUN 15 mg/dL 6-24 Not Available [facility] ([facility]) [address] [facility] [place], [address], 03/11/2024 03:37:11 03/10/20 24 03/11/2024 COMP. METAB OLIC PANEL (14) creatinine 0.95 mg/dL 0.76-1 .27 Not Available [facility] ([facility]) [address] [place], [address], 03/11/2024 03:37:11 03/10/20 24 03/11/2024 COMP. METAB OLIC PANEL (14) eGFR 93 mL/mi n/1.7 3 >59 Not Available [facility] ([facility]) [address] [facility], [place], [address], 03/11/2024 03:37:11 03/10/20 24 03/11/2024 COMP. METAB OLIC PANEL (14) BUN/creatini ne ratio 16 9-20 Not Available [facility] ([facility]) [address] [facility], [place], [address], 03/11/2024 03:37:11 03/10/20 24 03/11/2024 COMP. METAB OLIC PANEL (14) sodium 141 mmol/ L 134-14 4 Not Available [facility] ([facility]) [address] [facility], [place], [address], 03/11/2024 03:37:11 03/10/20 24 03/11/2024 COMP. METAB OLIC PANEL (14) potassium 4.5 mmol/ L 3.5-5. 2 Not Available [facility] ([facility]) [address] [facility], [place], [address], 03/11/2024 03:37:11 03/10/20 24 03/11/2024 COMP. METAB OLIC PANEL (14) chloride 101 mmol/ L 96-106 Not Available [facility] ([facility]) [address] [facility], [place], [address], 03/11/2024 03:37:11 03/10/20 24 03/11/2024 COMP. METAB OLIC PANEL (14) carbon dioxide, total 26 mmol/ L 20-29 Not Available [facility] ([facility]) [address] [facility], [place], [address], 03/11/2024 03:37:11 03/10/20 24 03/11/2024 COMP. METAB OLIC PANEL (14) calcium 9.5 mg/dL 8.7-10 .2 Not Available [facility] ([facility]) [address] [facility], [place], [address], 03/11/2024 03:37:11 03/10/20 24 03/11/2024 COMP. METAB OLIC PANEL (14) protein, total 6.9 g/dL 6.0-8. 5 Not Available [facility] ([facility]) [address] [place], [address], 03/11/2024 03:37:11 03/10/20 24 03/11/2024 COMP. METAB OLIC PANEL (14) albumin 4.4 g/dL 3.8-4. 9 Not Available [facility] ([facility]) [address] [place], [address], 03/11/2024 03:37:11 03/10/20 24 03/11/2024 COMP. METAB OLIC PANEL (14) globulin, total 2.5 g/dL 1.5-4. 5 Not Available [facility] ([facility]) [address] [place], [address], 03/11/2024 03:37:11 03/10/20 24 03/11/2024 COMP. METAB OLIC PANEL (14) bilirubin, total 0.6 mg/dL 0.0-1. 2 Not Available [facility] ([facility]) [address] [place], [address], 03/11/2024 03:37:11 03/10/20 24 03/11/2024 COMP. METAB OLIC PANEL (14) alkaline phosphatase 96 IU/L 44-121 Not Available [facility] ([facility]) [address] [place], [address], 03/11/2024 03:37:11 03/10/20 24 03/11/2024 COMP. METAB OLIC PANEL (14) AST (SGOT) 18 IU/L 0-40 Not Available [facility] ([facility]) [address] [facility], [place], [address], 03/11/2024 03:37:11 03/10/20 24 03/11/2024 COMP. METAB OLIC PANEL (14) ALT (SGPT) 18 IU/L 0-44 Not Available [facility] ([facility]) [address] [facility], [place], [address], 03/11/2024 03:37:11 03/10/20 24 03/11/2024 HEMOG LOBIN A1C hemoglobin A1C 5.8 % 4.8-5. 6 above high normal Predi abete s: 5.7 - 6.4 Diabe irihs: >6.4 Glyce yani contr ol for adult s with diabe irish: <7.0 Not Available [facility] ([facility]) [address] [facility], [place], [address], 03/11/2024 03:37:12 03/10/20 24 03/10/2024 CBC WITH DIFFE RENTI AL/PL ATELE T WBC 8.7 x10e3 /uL 3.4-10 .8 Not Available [facility] ([facility]) [address] [facility], [place], [address], 03/11/2024 03:37:12 03/10/20 24 03/10/2024 CBC WITH DIFFE RENTI AL/PL ATELE T RBC 4.39 x10e6 /uL 4.14-5 .80 Not Available [facility] ([facility]) [address] [facility], [place], [address], 03/11/2024 03:37:12 03/10/20 24 03/10/2024 CBC WITH DIFFE RENTI AL/PL ATELE T hemoglobin 14.0 g/dL 13.0-1 7.7 Not Available [facility] ([facility]) [address] [place], [address], 03/11/2024 03:37:12 03/10/20 24 03/10/2024 CBC WITH DIFFE RENTI AL/PL ATELE T hematocrit 43.1 % 37.5-5 1.0 Not Available [facility] ([facility]) [address] [facility], [place], [address], 03/11/2024 03:37:12 03/10/20 24 03/10/2024 CBC WITH DIFFE RENTI AL/PL ATELE T MCV 98 fL 79-97 above high normal Not Available [facility] ([facility]) [address] [facility], [place], [address], 03/11/2024 03:37:12 03/10/20 24 03/10/2024 CBC WITH DIFFE RENTI AL/PL ATELE T MCH 31.9 pg 26.6-3 3.0 Not Available [facility] ([facility]) [address] [facility], [place], [address], 03/11/2024 03:37:12 03/10/20 24 03/10/2024 CBC WITH DIFFE RENTI AL/PL ATELE T MCHC 32.5 g/dL 31.5-3 5.7 Not Available [facility] ([facility]) [address] [facility], [place], [address], 03/11/2024 03:37:12 03/10/20 24 03/10/2024 CBC WITH DIFFE RENTI AL/PL ATELE T RDW 12.8 % 11.6-1 5.4 Not Available [facility] ([facility]) [address] [place], [address], 03/11/2024 03:37:12 03/10/20 24 03/10/2024 CBC WITH DIFFE RENTI AL/PL ATELE T platelets 259 x10e3 /uL 150-45 0 Not Available [facility] ([facility]) [address] [place], [address], 03/11/2024 03:37:12 03/10/20 24 03/10/2024 CBC WITH DIFFE RENTI AL/PL ATELE T neutrophils 49 % notest ab. Not Available [facility] ([facility]) [address] [facility], [place], [address], 03/11/2024 03:37:12 03/10/20 24 03/10/2024 CBC WITH DIFFE RENTI AL/PL ATELE T lymphs 39 % notest ab. Not Available [facility] ([facility]) [address] [facility], [place], [address], 03/11/2024 03:37:12 03/10/20 24 03/10/2024 CBC WITH DIFFE RENTI AL/PL ATELE T monocytes 7 % notest ab. Not Available [facility] ([facility]) [address] [facility], [place], [address], 03/11/2024 03:37:12 03/10/20 24 03/10/2024 CBC WITH DIFFE RENTI AL/PL ATELE T eos 4 % notest ab. Not Available [facility] ([facility]) [address] [facility], [place], [address], 03/11/2024 03:37:12 03/10/20 24 03/10/2024 CBC WITH DIFFE RENTI AL/PL ATELE T basos 1 % notest ab. Not Available [facility] ([facility]) [address] [facility], [place], [address], 03/11/2024 03:37:12 03/10/20 24 03/10/2024 CBC WITH DIFFE RENTI AL/PL ATELE T neutrophils (absolute) 4.3 x10e3 /uL 1.4-7. 0 Not Available [facility] ([facility]) [address] [facility], [place], [address], 03/11/2024 03:37:12 03/10/20 24 03/10/2024 CBC WITH DIFFE RENTI AL/PL ATELE T lymphs (absolute) 3.4 x10e3 /uL 0.7-3. 1 above high normal Not Available [facility] ([facility]) [address] [facility], [place], [address], 03/11/2024 03:37:12 03/10/20 24 03/10/2024 CBC WITH DIFFE RENTI AL/PL ATELE T monocytes(ab solute) 0.6 x10e3 /uL 0.1-0. 9 Not Available [facility] ([facility]) [address] [facility], [place], [address], 03/11/2024 03:37:12 03/10/20 24 03/10/2024 CBC WITH DIFFE RENTI AL/PL ATELE T eos (absolute) 0.3 x10e3 /uL 0.0-0. 4 Not Available [facility] ([facility]) [address] [facility], [place], [address], 03/11/2024 03:37:12 03/10/20 24 03/10/2024 CBC WITH DIFFE RENTI AL/PL ATELE T baso (absolute) 0.0 x10e3 /uL 0.0-0. 2 Not Available [facility] ([facility]) [address] [facility], [place], [address], 03/11/2024 03:37:12 03/10/20 24 03/10/2024 CBC WITH DIFFE RENTI AL/PL ATELE T immature granulocytes 0 % notest ab. Not Available [facility] ([facility]) [address] [place], [address], 03/11/2024 03:37:12 03/10/20 24 03/10/2024 CBC WITH DIFFE RENTI AL/PL ATELE T immature grans (abs) 0.0 x10e3 /uL 0.0-0. 1 Not Available [facility] ([facility]) [address] [place], [address], 03/11/2024 03:37:12 03/03/20 24 05/21/2019 colon oscop y proce dure (PROC ) No observ ation record ed. BARCODE Not Available 2023 15:52:43 Result Notes None recorded. Medical Equipment None Reported. Allergies Allergen ID Allergen Name Allergen Category Reaction Reaction Severity Criticality Documentation Date Start Date Code Code System Note Provider Name and Address Organization Details Recorded Time 875002 Product containin g penicilli n (product) medicatio n Not available Not available low 03/03/2024 35902 8001 SNOMED Patie nt does not know what his react ion is LALITA Erwin [facility] 4 15:06:52 Medications Name Sig Start Date [...] Updated DateTime 5 180.34 cm 26.4 kg/m2 68908.7 5 g 54 /min 97 % 97 % 114 mm[Hg] 74 mm[Hg] LALITA Turcios [facility] 5 16:25:31 Date Recorded Body height Body mass index (BMI) Body weight Heart rate Oxygen saturation Oxygen saturation in Arterial blood by Pulse oximetry Systolic blood pressure Diastolic blood pressure Provider Name and Address Organization Details Last Updated DateTime 4 180.34 cm 27.3 kg/m2 55644.3 1 g 65 /min 97 % 97 % 130 mm[Hg] 68 mm[Hg] LALITA Erwin [facility] 4 15:13:44 Social History Question Answer Notes LastModified by Organizat ion Details LastModified Time Tobacco Smoking Status Never Smoker LALITA Erwin [place] - [facility] 03/03/2024 15:08:58 Do You Have An Advance Directive? No Information not available 03/03/2024 How Many Years [...] No Information not available 03/03/2024 Are You Deaf Or Do You Have Serious Difficulty Hearing? No Information not available 03/03/2024 What Type Of Diet Are You Following? REGULAR Information not available 03/03/2024 Are There Any [...] Yes Information not available 03/03/2024 Do You Use Sunscreen Routinely? Yes Information not available 03/03/2024 Has Tobacco Cessation Counseling Been Provided? No Information not available 03/03/2024 Sex: Male Functional Status Question Answer Note LastModified by Organizat ion Details LastModified Time Do you use any illicit or recreational drugs? No Information not available 03/03/2024 Do you or have you ever used any other forms of tobacco or nicotine? No Information not available 03/03/2024 What is your level of alcohol consumption? Moderate Information not available 03/03/2024 Are you currently employed? Yes Information not available 03/03/2024 Are you able to care for yourself? 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 None Information not available 03/03/2024 Mental Status Question Answer Note LastModified by Organization D etails LastModified Time Do you feel stressed (tense, restless, nervous, or anxious, or unable to sleep at night)? CP2141-5 Information not available 03/03/2024 Family History Relationship Description Onset Age of this Age Resolved Age Notes LastModified by Organization Details LastModified Time Sister Asthma mebyma Not available 15:08:04 Sister Harmful pattern of use of alcohol mebyma Not available 2023 15:08:11 Mother Diabetes mellitus mebyma Not available 2023 15:08:33 Medical History Condition Response Coronary Artery Disease N Other N High Blood Pressure N Atrial Fibrillation N Kidney or Bladder Problems N Thyroid Problems N GI Problems N Depression N COPD N Blood Clots N Have you had a mammogram in the last yea r? N Skin Problems N Anemia N Heart Attack ([place]) N Anxiety Disorder N Diabetes N Muscle, Joint, or Bone Problems N Seizures/Epilepsy N Have you had a colonoscopy in the last 1 0 years? N Acid Reflux (GERD) N Cancer N Stroke N Asthma N Allergies N Have you had a PSA blood [...] - [facility] 09/02/2024 16:18:28 Tdap 02/07/2016 completed LALITA Turcios, [place] - [facility] 09/02/2024 16:18:28 Past Encounters Encounter ID Performer Location Encounter Start Date Encounter Closed Date Diagnosis/Indication Diagnosis SNOMED-CT Code Diagnosis ICD10 Code Diagnosis Note [id number] Nitin Hernandez MD [facility] [place] [address] [place] [address] 03/03/2024 14:44:12 03/03/2024 16:21:08 Adult health examination 926442931 Z00.00 History of polyp of colon 292605146 Z86.010 Rhinitis 48497508 J00 [id number] Nitin Hernandez MD [facility] ([facility]ult [facility] [address] [place] [address] 09/02/2024 16:07:39 09/02/2024 17:35:07 Body mass index 25-29 - overweight 285692452 Z68.26 Overweight 035544973 E66 .3 Inguinal pain 344279963 R10.2 Health Concerns Section Related Observation LastModified by Organization Detai ls LastModified Time None Recorded Concern Status LastModified by Organization Details LastModified Time None Recorded Advance Directives Directive N: Payers Encounter Date Sequence Insurance Name Policy Number Policy Bernard Covered Member ID Bernard Member ID Guarantor Name 03/03/2024 1 [place] [id number] Andrae Rodgers [id number] Andrae Rodgers 03/03/2024 1 [facility] [place] [id number] Andrae Rodgers [id number] Andrae Rodgers 09/02/2024 1 [facility] [id number] Andrae Rodgers [id number] Andrae Rodgers Notes Date Note Type Note Provider Name and Address Organization Details Recorded Time 03/03/2024 text/html rhinitis needs loratadine colon polyp needs his colonoscopy Nitin Hernandez MD Attn: [address] [place], [address], [facility] 03/03/2024 22:21:42 09/02/2024 text/html allergies doing fine inguinal pain he has had surgery there before and he just has an achiness. This all started after doing some shoveling snow in June Nitin Hernandez MD Attn: Accounting[address] [facility], [place], [address], [facility] 09/05/2024 21:12:13
--- OUTSIDE RECORDS SUMMARY | 2024-11-14 17:03 | XMS_ITS | Continuity of Care Document ---
Author Organization [facility] Address [address] [place] [address] Phone Care Team Providers Care Construction Controller Name Role Phone Rodriguez OD, Adan Unavailable Unavailable Advance Directives Directive Yes / No Effective Date File Name No Information Encounters Encounter Description Practice Location Reason(s) For Visit Diagnoses Date Provider Providers Copied on Encounter [facility], [address], [place], [place], [id number], [place] tel:[phone] [facility] [place] No Information Nov-0 6-200 2 Rodriguez OD Adan. [address] [facility] [place] , [address], [place], [address], [place]. tel:[phone] Family History Family Member Type Diagnosis Age At Onset No Information Payers Payer name Insurance type Covered alliance party ID Authoriza tion(s) No Information Social History [...]
--- OUTSIDE RECORDS SUMMARY | 2024-11-14 17:03 | XMS_ITS | Encounter Summary ---
Author Organization [employer] Address 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
--- OUTSIDE RECORDS SUMMARY | 2024-11-14 17:03 | XMS_ITS | Encounter Summary ---
Author Organization [employer] Address [address] [place] [address] Care Team Providers Care Director Financial Services Name Role Phone Nitin Hernandez MD Primary Care Provider [phone] Encounter Details Date Type Department Care Team (Latest Contact Info) Description 10/15/2000 Outpatient Historical [facility] Jessica Mota Myalgia and myositis, unspecified (Primary Dx) Social History Tobacco Use Types Packs/Day Years Used Date Smoking Tobacco: Never Assessed Sex and Gender Information Value Date Recorded Sex Assigned at Not on file Legal Sex Male 4:53 AM DIRECTOR CONSTRUCTION SERVICES Gender Identity Not on file Sexual Orientation Not on file documented as of this encounter Plan of Treatment Not on file documented as of this encounter Visit Diagnoses Diagnosis Myalgia and myositis, unspecified- Primary Mylagia and myositis, unspecified documented in this encounter Care Teams Director Financial Services Relationship Specialty [place] [address] [place] [address] PCP - General 10/15/00 documented as of this encounter
--- OUTSIDE RECORDS SUMMARY | 2024-11-14 17:03 | XMS_ITS | Clinical Summary ---
Author Organization [facility] [address] Address [address] [place] [address] Care Team Providers Care Business Technology Analyst Name Role Phone Nitin Hernandez MD Primary Care Provider [phone] Allergies Active Allergy Reactions Criticality Noted Date [...] 5 season) 2024 11/02/2020, 10/16/2020 Influenza Vaccine (Season Ended) 2025 DTaP/Tdap/Td Vaccine (2 - Td or Tdap) 02/06/2026 02/07/2016 Pneumococcal vaccine <65 Aged Out No longer eligible based on patient's age to complete this topic Insurance Care Teams Business Technology Analyst Relationship Specialty Start Date End Date Nitin Hernandez MD PCP - General Internal Medicine 12/14/21
[2024-11-14 17:13] LABS: Basophils Percent Auto 0.4 % (0.2-1.2); Eosinophils Absolute Auto 0.4 K/mm3 (0-0.3); Eosinophils Percent Auto 3.7 % (0-4.4); Hematocrit 42.3 % (42.0-52.0); Hemoglobin 13.3 g/dL (14.0-18.0); Immature Granulocyte Absolute 0.04 K/mm3 (0.00-0.031); Immature Granulocyte Percent A 0.4 % (0-0.5); Lymphocytes Absolute Auto 3.21 K/mm3 (0.9-3.2); Lymphocytes Percent Auto 33.8 % (18.3-44.2); Mean Corpuscular HGB Conc 31.4 g/dl (32-36); Mean Corpuscular Hemoglobin 31.2 pg (26-34); Mean Corpuscular Volume 99.3 fl (80-100); Mean Platelet Volume 9.4 fl (7.4-10.4); Monocytes Absolute Auto 0.8 K/mm3 (0.1-0.6); Monocytes Percent Auto 8.4 % (2.6-8.5); Neutrophils Absolute Auto 5.1 K/mm3 (1.3-6.7); Neutrophils Percent Auto 53.3 % (45.5-73.1); Platelet Count Result 274 k/mm3 (150-375); Red Blood Count 4.26 M/mm3 (4.6-6.20); Red Cell Distribution Width 14.3 % (11.5-14.5); White Blood Count 9.5 K/mm3 (4.5-10.0)
== END 2024-11-14 16:54 | disposition home or self-care (01) ==
PROVIDERS: PCP Internal Medicine; Visit Provider Surgery
DX: K40.90 Unilateral inguinal hernia, without obstruction or gangrene, not specified as recurrent (principal)
CPT/HCPCS: 36415; 85025; 86850; 86900; 86901

== ENCOUNTER 2024-11-26 00:27 | Day surgery (SDC) | payer OTHER, SELFPAY ==
[2024-11-14 08:31] VITALS: BMI 27.6
--- NOTE | 2024-11-14 08:37 | PC.NURSE ---
Addendum entered by Katlin Lopez RN 11/17/24 12:35: PT INSTRUCTED TO BE HERE 11/26/24, NOT 11/27/24 Original Note: Report to the Outpatient Waiting Room, entrance under the green pavilion located off [facility], at time _0600_ on date _11/27/24_. Planned Procedure Time: _0730_.? Time changes happen often and if your time is changed the preop area will call you the afternoon before. - You and your visitor will be asked to self-screen and do not enter if you have any COVID symptoms. Please call surgeon if you need to reschedule. - A mask is optional within the hospital at this time. Patients may have clear liquids (water, carbonated beverages, clear teas, apple juice) until 3 hours prior to surgery with a maximum of 20 ounces. - No food from midnight until time of surgery and no smoking, or chewing tobacco (or any form of nicotine). No chewing gum, candy or mints. - Infants may have breast milk until 4 hours before surgery, infant formula 6 hours prior to surgery. - Children will be allowed to drink immediately following surgery.? If applicable, please bring a bottle or sippy cup to assist with drinking. Juice, water, soda, and popsicles are readily available.? For infants on formula, please bring formula the day of surgery.? Pacifiers are allowed. Take only the following medications with a SIP of water on the morning of surgery: _NONE DO NOT STOP ANY OF YOUR OTHER PRESCRIPTION MEDICATIONS PRIOR TO SURGERY EXCEPT THE FOLLOWING Hold all vitamins and supplements for 3 days per anesthesiologist. Medications to discontinue per physician Date to take last dose Please no make-up, nail yakut, hairspray, perfume, deodorant, or body powder the day of surgery.? No jewelry (including any body piercings) or valuables the day of surgery, leave them at home.? Please take a shower or bath the night before, or the morning of, surgery with HIBICLENS antibacterial soap.? Wear comfortable, loose fitting clothing.? Children are encouraged to wear pajamas. - Jewelry must be removed prior to entering the operating room.? Rings and piercings that are not removed may be cut off. - The hospital will not accept responsibility for valuables.? - Please leave all valuables, including medications, at home the day of surgery. If you are going home after surgery, a licensed compressed air pile driver operator must drive you home.? - NO public transportation without another adult if you receive anesthesia. - We recommend that an adult stay with you for 24 hours following discharge. - We also recommend that you do not drive, make important decision, drink alcoholic beverages, or take any drugs that were not prescribed by your health care provider for at least 24 hours after your discharge time. For Pediatric surgeries, we recommend two adults accompany the child home. Follow any additional instructions given to you from your surgeon. Telephone instructions given to PATIENT_and asked if any additional questions and then verbalized understanding. Patient advised to call surgeon office or pre surgery nurse liaison [phone] if any additional questions.
--- NOTE | 2024-11-25 12:39 | PM.SD2 ---
Same Day Admit/Disch: HPI History of Present Illness Chief complaint: Right Inguinal Hernia Narrative: Andrae Rodgers is a 59 year old male Who has had pain and a bulge in the right groin since June of this year. He has had previous inguinal surgery many years ago. They made an in incision in the groin area but instead of a hernia, he had some lymphadenopathy which was removed. He was seen in the office and found to have a reducible right inguinal hernia. 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 Alcohol intake: current Drinks per week: 6 Substance use: current Substance use type: marijuana Other substance usage details: 1-2 TIMES PER MONTH Living arrangements: with family Spiritual care concerns: No Same Day Admit/Disch: Med Pre-admit Medications Home Medications ?Medication ?Instructions ?Recorded ?Confirmed ?Type loratadine 10 mg tablet 10 mg PO DAILY 09/22/24 11/14/24 History ketorolac 10 mg tablet 10 mg PO Q6H 4 days #16 tabs 11/26/24 Rx oxycodone-acetaminophen 5 mg-325 0.5 - 1 tablet PO Q4H PRN pain #10 11/26/24 Rx mg tablet (Percocet) tabs Review of Systems Review of Systems All systems reviewed & are unremarkable except as noted in HPI and below ( HPI) Exam Const: General: comfortable, no acute distress, alert and awake HENMT: Head: normocephalic and atraumatic Mouth: Yes Normal oral and palatal mucosa present Eyes: Conjunctivae: conjunctivae normal Pupils: Equal, round and reactive pupils present EOM: EOMs intact bilaterally Neck: Neck: normal visual inspection, no lymphadenopathy and nontender Resp: Effort & Inspection: normal respiratory effort Auscultation: clear to auscultation bilaterally Cardio: Rate: regular rate Rhythm: regular rhythm Heart sounds: no gallops, no murmurs and no rubs GI: Inspection: non-distended GI Palp: Yes Soft to palpation, No Tenderness to palpation present (GI), No Hepatomegaly present and No Splenomegaly present : Male General Exam: Yes hernia ( right inguinal hernia, bulges with cough, nontender, reducible) Penis: Yes normal penis Scrotum: scrotum normal Testes: Testes normal Skin: Lesions: no lesions Rashes: no rashes Neuro: General: no focal motor deficits and CN's II-XI intact bilaterally Cranial nerves: Yes Equal, round and reactive pupils present, Yes Bilaterally intact EOM present, Yes facial symmetry and Yes Midline tongue present Speech: normal speech Motor exam (neuro): 5/5 motor strength present throughout and Motor abnormalities not present Extrem: General: no clubbing, cyanosis or edema and edema Psych: Affect: normal affect Thought process: Normal thought process present Insight: Good insight present (Psych) DS: Summary Time Spent with Patient Time attestation: Total time spent providing and/or coordinating discharge services: DS: Admitting Diagnosis Discharge Date November 26, 2024 Admitting Diagnosis reducible right inguinal hernia- plan to proceed with robotic laparoscopic repair of right inguinal hernia with mesh. I discussed the procedure, risks, benefits and alternatives with the patient. The usual length of the surgery as well as length of recovery was discussed. The use of mesh and that this is outpatient surgery was discussed. All questions were answered. He understands and agrees to go ahead. DS: Discharge Diagnosis Discharge Diagnosis (1) Right inguinal hernia: Code(s): K40.90 - Unilateral inguinal hernia, without obstruction or gangrene, not specified as recurrent Status: Acute Assessment and Plan: Robotic laparoscopic repair with mesh per Dr. Ramirez on November 26, 2024 Discharge Plan Discharge Patient Disposition: Home Discharge Instructions: 1. May shower the day after surgery over incisions. 2. Call office for: -Wound increasingly painful or bleeding -Vomiting -Fever of greater than 101 degrees 3. Wear scrotal support at all times except when sleeping, bathing, or showering for 1 week. 4. If no bowel movement for three days, take 1 oz. (30 ml) Milk of Magnesia, if no results, take Fleets enema. 5. No heavy lifting > 15-20 pounds for 2 weeks. 6. No driving for 3 days or while taking narcotic pain medications. 7. Up walking 10-30 minutes three times per day. 8. Resume previous home medications. 9. Follow-up 10-14 days in office for wound check or as previously scheduled. 10. Oral pain medications prescription to be sent home with patient. 11. NUTRITION: Start out by drinking fluids and increase your diet as tolerated. If you experience nausea, try dry toast, crackers, and 7-UP. If nausea or vomiting persists, contact your surgeon?s office. Patient Language: Italian Stand Alone Forms: General Discharge Instructions Follow-up/Referrals: Kevin Ramirez MD [Physician] - 2 Weeks Discharge Medications: New ketorolac 10 mg tablet 10 mg PO Q6H 4 Days Qty: 16 0RF oxycodone-acetaminophen [Percocet] 5-325 mg tablet 0.5 - 1 tablet PO Q4H PRN (Reason: pain) Qty: 10 0RF Continued loratadine 10 mg tablet 10 mg PO DAILY
[2024-11-26] VITALS (9 sets, daily range): BP systolic 100–139; BP diastolic 55–87; PULSE 62–93; RESP 12–20; TEMP 36.1–36.6; O2SAT 92–97; BMI 26.1
--- OUTSIDE RECORDS SUMMARY | 2024-11-26 00:31 | XMS_ITS | Referral Summary ---
Author Organization [facility] [address] [place] [address] Care Team Providers Care Inspector Missile Name Role Phone Nitin Hernandez MD Primary Care Provider [phone] Allergies Active Allergy Reactions Criticality Noted Date [...] Plan of Treatment Not on file Insurance [facility] HMO/PPO Address: [facility] [address] [place] [address] Care Teams Inspector Missile Relationship Specialty Start Date End Date Nitin Hernandez MD PCP - General Internal Medicine 12/14/21
--- OUTSIDE RECORDS SUMMARY | 2024-11-26 00:31 | XMS_ITS | Encounter Summary ---
Author Organization [facility] Address [address] [place] [address] Care Team Providers Care Hematologist Oncologist Name Role Phone Nitin Hernandez MD Primary Care Provider [phone] Encounter Details Date Type Department Care Team (Latest Contact Info) Description 10/15/2000 Outpatient Historical [facility] Jessica Mota Myalgia and myositis, unspecified (Primary Dx) Social History Tobacco Use Types Packs/Day Years Used Date Smoking Tobacco: Never Assessed Sex and Gender Information Value Date Recorded Sex Assigned at Not on file Legal Sex Male 4:53 AM [employer] Gender Identity Not on file Sexual Orientation Not on file documented as of this encounter Plan of Treatment Not on file documented as of this encounter Visit Diagnoses Diagnosis Myalgia and myositis, unspecified- Primary Mylagia and myositis, unspecified documented in this encounter Care Teams Hematologist Oncologist Relationship Specialty [place] [address] [place] [id number] PCP - General 10/15/00 documented as of this encounter
--- OUTSIDE RECORDS SUMMARY | 2024-11-26 00:31 | XMS_ITS | Data Portability ---
Author Organization [facility], Main Office Address [address] [place] [address] Assessment Encounter Date Assessment Date Assessment LastModified by Organization Details LastModified Time 09/11/2022 09/11/2022 Hyperlipidemia low-fat diet History of colon polyp colonoscopy Follow-up 6 months [email or web address] Not available 09/11/2022 10:53:44 03/16/2023 03/16/2023 Low-fat diet blood work see me 6 months continue current therapy colonoscopy [email or web address] Not available 03/17/2023 12:46:52 Plan of Treatment Reminders Order Date Submit Date Provider Last Modified By Organization Details Last Modified Time Details Appointments None recorded. Lab PSA, total, serum or plasma 2022 023 [facility] (Lab), [address] [place], [address], 14:34:44 lipid panel, serum 2022 023 [facility] (Lab), [address] [place], [address], 14:13:22 CMP, serum or plasma 2022 023 [facility] (Lab), [address] [place], [address], 14:13:28 CBC w/ auto diff 2022 023 [facility] (Lab), [address] [place], [address], 13:54:18 lipid panel, serum 2022 023 [facility] (Lab), [address] [place], [address], 3 13:48:50 CMP, serum or plasma 2022 023 [facility] (Lab), [address] [place], [address], 3 13:48:55 CBC w/ auto diff 2022 023 [facility] (Lab), [address] [place], [address], 3 11:58:13 Referral None recorded. Procedures colonoscopy screening (PROC) 2022 023 Geoff Solares MD, [address] [facility], [facility] [address], [place], [address], 4 09:40:33 colonoscopy procedure (PROC) 2022 023 nagela Solares MD, [address] [facility], [facility] [address], [place], [address], 3 10:49:24 Surgeries None recorded. Imaging None recorded. Medication Orders None recorded. Patient TargetsNo targets recorded. Patient InstructionsNo instructions recorded. Reason for Referral None Reported. Results Created Date Observation Date Name Description Value Unit Range Abnormal Flag Note LastModifiedBy Organization Detail LastModifiedTime 12/15/19 22 12/14/2021 PSA SCREE N PSA medicare screen 1.09 NG/mL 0.00-4 .00 Not Available [facility] (Lab) [address] [place], [address], 12/14/2021 19:51:32 12/15/19 22 12/14/2021 LIPID PANEL cholesterol 158 mg/dL 140-19 9 NIH JAYJAY NSUS RECOM MENDA TION FOR KRISTOFER STERO L: ADULT CHILD LOW RISK: <200 <170 BORDE RLINE : <200- 239 ----- HIGH RISK: >240 >200 Not Available [facility] (Lab) [address] [place], [address], 12/14/2021 19:22:15 12/15/19 22 12/14/2021 LIPID PANEL triglyceride s 179 mg/dL 0-150 high NIH JAYJAY NSUS REPOR T RECOM MENDA TION FOR TRIGL YCERI KEI: ADULT CHILD LOW RISK: <150 ----- BODER LINE: 150-1 99 ----- HIGH RISK: >200 ----- Not Available [facility] (Lab) [address] [place], [address], 12/14/2021 19:22:15 12/15/19 22 12/14/2021 LIPID PANEL HDL cholesterol 37 mg/dL 40- low Not Available [facility] (Lab) [address] [place], [address], 12/14/2021 19:22:15 12/15/19 22 12/14/2021 LIPID PANEL [...] NOT BE REPOR DULCE MARIA. Not Available [facility] (Lab) [address] [place], [address], 12/14/2021 19:22:15 12/15/1912/14/2021 COMPR EHENS STONE METAB OLIC PANEL sodium 140 mmol/ L 137-14 5 Not Available [facility] (Lab) [address] [place], [address], 12/14/2021 19:22:13 12/15/19 22 12/14/2021 COMPR EHENS STONE METAB OLIC PANEL potassium 4.1 mmol/ L 3.5-5. 1 Not Available [facility] (Lab) [address] [place], [address], 12/14/2021 19:22:13 12/15/19 22 12/14/2021 COMPR EHENS STONE METAB OLIC PANEL chloride 103 mmol/ L 98-107 Not Available [facility] (Lab) [address] [place], [address], 12/14/2021 19:22:13 12/15/19 22 12/14/2021 COMPR EHENS STONE METAB OLIC PANEL carbon dioxide 28 mmol/ L 22-30 Not Available [facility] (Lab) [address] [place], [address], 12/14/2021 19:22:13 12/15/19 22 12/14/2021 COMPR EHENS STONE METAB OLIC PANEL anion gap 13.1 mmol/ L 14-22 low Not Available [facility] (Lab) [address] [place], [address], 12/14/2021 19:22:13 12/15/19 22 12/14/2021 COMPR EHENS STONE METAB OLIC PANEL glucose 93 mg/dL 70-99 Not Available [facility] (Lab) [address] [place], [address], 12/14/2021 19:22:13 12/15/19 22 12/14/2021 COMPR EHENS STONE METAB OLIC PANEL BUN 19 mg/dL 8-19 Not Available [facility] (Lab) [address] [place], [address], 12/14/2021 19:22:13 12/15/19 22 12/14/2021 COMPR EHENS STONE METAB OLIC PANEL creatinine 1.24 mg/dL 0.66-1 .25 Not Available [facility] (Lab) [address] [place], [address], 12/14/2021 19:22:13 12/15/19 22 12/14/2021 COMPR EHENS STONE METAB OLIC PANEL GFR >60 Refer ence Range : [place] ge GFR Healt hy Adult : >60 [...] or ethni c subgr oups, such as nm nics. Outsi de the valid ated maria [...] calcu lator is avail able on the [facility] websi te: https ://lu oscar.loretta sahni.o rg/pr ofess ional s/kdo qi/gf r_cal culat or Not Available [facility] (Lab) [address] [place], [address], 12/14/2021 19:22:13 12/15/19 22 12/14/2021 COMPR EHENS STONE METAB OLIC PANEL alkaline phosphatase 75 U/L 38-126 Not Available [facility] (Lab) [address] [place], [address], 12/14/2021 19:22:13 12/15/19 22 12/14/2021 COMPR EHENS STONE METAB OLIC PANEL alanine aminotransfe rase 25 U/L 0-50 Not Available [facility] (Lab) [address] [place], [address], 12/14/2021 19:22:13 12/15/19 22 12/14/2021 COMPR EHENS STONE METAB OLIC PANEL aspartate aminotransfe rase 25 U/L 15-46 Not Available [facility] (Lab) [address] [place], [address], 12/14/2021 19:22:13 12/15/19 22 12/14/2021 COMPR EHENS STONE METAB OLIC PANEL bilirubin, total 0.50 mg/dL 0.20-1 .30 Not Available [facility] (Lab) [address] [place], [address], 12/14/2021 19:22:13 12/15/19 22 12/14/2021 COMPR EHENS STONE METAB OLIC PANEL calcium 9.4 mg/dL 8.4-10 .2 Not Available [facility] (Lab) [address] [place], [address], 12/14/2021 19:22:13 12/15/19 22 12/14/2021 COMPR EHENS STONE METAB OLIC PANEL total protein 7.1 g/dL 6.3-8. 2 Not Available [facility] (Lab) [address] [place], [address], 12/14/2021 19:22:13 12/15/19 22 12/14/2021 COMPR EHENS STONE METAB OLIC PANEL albumin 4.4 g/dL 3.4-5. 0 Not Available [facility] (Lab) [address] [place], [address], 12/14/2021 19:22:13 12/15/19 22 12/14/2021 COMPR EHENS STONE METAB OLIC PANEL globulin 2.7 g/dL 2.6-4. 2 Not Available [facility] (Lab) [address] [place], [address], 12/14/2021 19:22:13 12/15/19 22 12/14/2021 COMPR EHENS STONE METAB OLIC PANEL A/G ratio 1.6 ratio 1.0-2. 0 Not Available [facility] (Lab) [address] [place], [address], 12/14/2021 19:22:13 12/15/19 22 12/14/2021 CBC/C OMPLE TE BLD COUNT W/DIF F white blood cells 7.5 x10'3 /uL 4.2-10 .8 Not Available [facility] (Lab) [address] [place], [address], 12/14/2021 18:33:42 12/15/19 22 12/14/2021 CBC/C OMPLE TE BLD COUNT W/DIF F red blood cells 4.41 x10'6 /uL 4.10-5 .80 Not Available [facility] (Lab) [address] [place], [address], 12/14/2021 18:33:42 12/15/19 22 12/14/2021 CBC/C OMPLE TE BLD COUNT W/DIF F hemoglobin 13.8 g/dL 13.2-1 7.0 Not Available [facility] (Lab) [address] [place], [address], 12/14/2021 18:33:42 12/15/19 22 12/14/2021 CBC/C OMPLE TE BLD COUNT W/DIF F hematocrit 43.1 % 39.3-5 0.0 Not Available [facility] (Lab) [address] [place], [address], 12/14/2021 18:33:42 12/15/19 22 12/14/2021 CBC/C OMPLE TE BLD COUNT W/DIF F mean red cell volume 97.7 fL 80.0-9 7.0 high Not Available [facility] (Lab) [address] [place], [address], 12/14/2021 18:33:42 12/15/19 22 12/14/2021 CBC/C OMPLE TE BLD COUNT W/DIF F mean red cell hemoglobin 31.3 pg 27.0-3 3.0 Not Available [facility] (Lab) [address] [place], [address], 12/14/2021 18:33:42 12/15/19 22 12/14/2021 CBC/C OMPLE TE BLD COUNT W/DIF F mean RBC HGB concentratio n 32.0 g/dL 31.0-3 6.0 Not Available [facility] (Lab) [address] [place], [address], 12/14/2021 18:33:42 12/15/19 22 12/14/2021 CBC/C OMPLE TE BLD COUNT W/DIF F red cell distribution width 13.4 % 11.8-1 5.5 Not Available [facility] (Lab) [address] [place], [address], 12/14/2021 18:33:42 12/15/19 22 12/14/2021 CBC/C OMPLE TE BLD COUNT W/DIF F platelets 260 x10'3 /uL 150-40 0 Not Available [facility] (Lab) [address] [place], [address], 12/14/2021 18:33:42 12/15/19 22 12/14/2021 CBC/C OMPLE TE BLD COUNT W/DIF F mean platelet volume 10.0 fL 9.0-12 .4 Not Available [facility] (Lab) [address] [place], [address], 12/14/2021 18:33:42 12/15/19 22 12/14/2021 CBC/C OMPLE TE BLD COUNT W/DIF F neutrophils 43.3 % 39.0-7 2.0 Not Available [facility] (Lab) [address] [place], [address], 12/14/2021 18:33:42 12/15/19 22 12/14/2021 CBC/C OMPLE TE BLD COUNT W/DIF F lymphocytes 44.6 % 16.0-4 7.0 Not Available [facility] (Lab) [address] [place], [address], 12/14/2021 18:33:42 12/15/19 22 12/14/2021 CBC/C OMPLE TE BLD COUNT W/DIF F monocytes 8.3 % 5.0-12 .0 Not Available [facility] (Lab) [address] [place], [address], 12/14/2021 18:33:42 12/15/19 22 12/14/2021 CBC/C OMPLE TE BLD COUNT W/DIF F eosinophils 2.9 % 1.0-7. 0 Not Available [facility] (Lab) [address] [place], [address], 12/14/2021 18:33:42 12/15/19 22 12/14/2021 CBC/C OMPLE TE BLD COUNT W/DIF F basophils 0.5 % 0.0-2. 0 Not Available [facility] (Lab) [address] [place], [address], 12/14/2021 18:33:42 12/15/19 22 12/14/2021 CBC/C OMPLE TE BLD COUNT W/DIF F immature granulocytes 0.4 % 0.00-0 .50 Not Available [facility] (Lab) [address] [place], [address], 12/14/2021 18:33:42 12/15/19 22 12/14/2021 CBC/C OMPLE TE BLD COUNT W/DIF F neutrophils, absolute count 3.24 x10'3 /uL 1.5-8. 0 Not Available [facility] (Lab) [address] [place], [address], 12/14/2021 18:33:42 12/15/19 22 12/14/2021 CBC/C OMPLE TE BLD COUNT W/DIF F lymphocytes, absolute count 3.34 x10'3 /uL 1.07-3 .43 Not Available [facility] (Lab) [address] [place], [address], 12/14/2021 18:33:42 12/15/19 22 12/14/2021 CBC/C OMPLE TE BLD COUNT W/DIF F monocytes, absolute count 0.62 x10'3 /uL 0.29-0 .99 Not Available [facility] (Lab) [address] [place], [address], 12/14/2021 18:33:42 12/15/19 22 12/14/2021 CBC/C OMPLE TE BLD COUNT W/DIF F eosinophils, absolute count 0.22 x10'3 /uL 0.02-0 .53 Not Available [facility] (Lab) [address] [place], [address], 12/14/2021 18:33:42 12/15/19 22 12/14/2021 CBC/C OMPLE TE BLD COUNT W/DIF F basophils, absolute count 0.04 x10'3 /uL 0.01-0 .08 Not Available [facility] (Lab) [address] [place], [address], 12/14/2021 18:33:42 12/15/19 22 12/14/2021 CBC/C OMPLE TE BLD COUNT W/DIF F immature granulocytes ,absolute 0.03 x10'3 /uL 0.00-0 .05 Not Available [facility] (Lab) [address] [place], [address], 12/14/2021 18:33:42 12/15/19 22 12/14/2021 CBC/C OMPLE TE BLD COUNT W/DIF F nucleated red blood cells 0.0 % -0 Not Available [facility] (Lab) [address] [place], [address], 12/14/2021 18:33:42 12/15/19 22 12/14/2021 CBC/C OMPLE TE BLD COUNT W/DIF F NRBC# 0.00 x10'3 /uL Not Available [facility] (Lab) [address] [place], [address], 12/14/2021 18:33:42 03/14/20 22 03/14/2022 TSH thyroid-stim ulating hormone 1.240 uIU/m L 0.465- 4.680 Not Available [facility] (Lab) [address] [place], [address], 03/14/2022 13:38:31 03/14/20 22 03/14/2022 T3 FREE free T3 3.8 pg/mL 2.77-5 .27 Not Available [facility] (Lab) [address] [place], [address], 03/14/2022 13:29:57 03/14/20 22 03/14/2022 T4 FREE free T4 1.06 NG/dL 0.78-2 .19 Not Available [facility] (Lab) [address] [place], [address], 03/14/2022 13:29:54 03/14/20 22 03/14/2022 COMPR EHENS STONE METAB OLIC PANEL sodium 141 mmol/ L 137-14 5 Not Available [facility] (Lab) [address] [place], [address], 03/14/2022 13:28:21 03/14/20 22 03/14/2022 COMPR EHENS STONE METAB OLIC PANEL potassium 4.0 mmol/ L 3.5-5. 1 Not Available [facility] (Lab) [address] [place], [address], 03/14/2022 13:28:21 03/14/20 22 03/14/2022 COMPR EHENS STONE METAB OLIC PANEL chloride 105 mmol/ L 98-107 Not Available [facility] (Lab) [address] [place], [address], 03/14/2022 13:28:21 03/14/20 22 03/14/2022 COMPR EHENS STONE METAB OLIC PANEL carbon dioxide 29 mmol/ L 22-30 Not Available [facility] (Lab) [address] [place], [address], 03/14/2022 13:28:21 03/14/20 22 03/14/2022 COMPR EHENS STONE METAB OLIC PANEL anion gap 11.0 mmol/ L 14-22 low Not Available [facility] (Lab) [address] [place], [address], 03/14/2022 13:28:21 03/14/20 22 03/14/2022 COMPR EHENS STONE METAB OLIC PANEL glucose 109 mg/dL 70-99 high Not Available [facility] (Lab) [address] [place], [address], 03/14/2022 13:28:21 03/14/20 22 03/14/2022 COMPR EHENS STONE METAB OLIC PANEL BUN 19 mg/dL 8-19 Not Available [facility] (Lab) [address] [place], [address], 03/14/2022 13:28:21 03/14/20 22 03/14/2022 COMPR EHENS STONE METAB OLIC PANEL creatinine 1.03 mg/dL 0.66-1 .25 Not Available [facility] (Lab) [address] [place], [address], 03/14/2022 13:28:21 03/14/20 22 03/14/2022 COMPR EHENS STONE METAB OLIC PANEL GFR >60 Refer ence Range : [place] ge GFR Healt hy Adult : >60 mL/mi n/1.7 3 m2 Chron ic Kidne y Disea se: 15-60 mL/mi n/1.7 3 m2 Kidne y Failu re: <15/m L/min /1.73 m2 www.n iddk. [facility].g ov The MDRD study equat ion has [...] calcu lator is avail able on the [facility] websi te: https ://lu sahni.o rg/pr ofess ional s/kdo qi/gf r_cal culat or Not Available [facility] (Lab) [address] [place], [address], 03/14/2022 13:28:21 03/14/20 22 03/14/2022 COMPR EHENS STONE METAB OLIC PANEL alkaline phosphatase 79 U/L 38-126 Not Available [facility] (Lab) [address] [place], [address], 03/14/2022 13:28:21 03/14/20 22 03/14/2022 COMPR EHENS STONE METAB OLIC PANEL alanine aminotransfe rase 19 U/L 0-50 Not Available [facility] (Lab) [address] [place], [address], 03/14/2022 13:28:21 03/14/20 22 03/14/2022 COMPR EHENS STONE METAB OLIC PANEL aspartate aminotransfe rase 23 U/L 15-46 Not Available [facility] (Lab) [address] [place], [address], 03/14/2022 13:28:21 03/14/20 22 03/14/2022 COMPR EHENS STONE METAB OLIC PANEL bilirubin, total 0.60 mg/dL 0.20-1 .30 Not Available [facility] (Lab) [address] [place], [address], 03/14/2022 13:28:21 03/14/20 22 03/14/2022 COMPR EHENS STONE METAB OLIC PANEL calcium 9.4 mg/dL 8.4-10 .2 Not Available [facility] (Lab) [address] [place], [address], 03/14/2022 13:28:21 03/14/20 22 03/14/2022 COMPR EHENS STONE METAB OLIC PANEL total protein 7.1 g/dL 6.3-8. 2 Not Available [facility] (Lab) [address] [place], [address], 03/14/2022 13:28:21 03/14/20 22 03/14/2022 COMPR EHENS STONE METAB OLIC PANEL albumin 4.5 g/dL 3.4-5. 0 Not Available [facility] (Lab) [address] [place], [address], 03/14/2022 13:28:21 03/14/20 22 03/14/2022 COMPR EHENS STONE METAB OLIC PANEL globulin 2.6 g/dL 2.6-4. 2 Not Available [facility] (Lab) [address] [place], [address], 03/14/2022 13:28:21 03/14/20 22 03/14/2022 COMPR EHENS STONE METAB OLIC PANEL A/G ratio 1.7 ratio 1.0-2. 0 Not Available [facility] (Lab) [address] [place], [address], 03/14/2022 13:28:21 03/14/20 22 03/14/2022 MAGNE SIUM magnesium 1.7 mg/dL 1.6-2. 3 Not Available [facility] (Lab) [address] [place], [address], 03/14/2022 13:28:09 03/14/20 22 03/14/2022 CBC/C OMPLE TE BLD COUNT W/DIF F white blood cells 7.3 x10'3 /uL 4.2-10 .8 Not Available [facility] (Lab) [address] [place], [address], 03/14/2022 12:47:02 03/14/20 22 03/14/2022 CBC/C OMPLE TE BLD COUNT W/DIF F red blood cells 4.41 x10'6 /uL 4.10-5 .80 Not Available [facility] (Lab) [address] [place], [address], 03/14/2022 12:47:02 03/14/20 22 03/14/2022 CBC/C OMPLE TE BLD COUNT W/DIF F hemoglobin 14.0 g/dL 13.2-1 7.0 Not Available [facility] (Lab) [address] [place], [address], 03/14/2022 12:47:02 03/14/20 22 03/14/2022 CBC/C OMPLE TE BLD COUNT W/DIF F hematocrit 43.2 % 39.3-5 0.0 Not Available [facility] (Lab) [address] [place], [address], 03/14/2022 12:47:02 03/14/2003/14/2022 CBC/C OMPLE TE BLD COUNT W/DIF F mean red cell volume 98.0 fL 80.0-9 7.0 high Not Available [facility] (Lab) [address] [place], [address], 03/14/2022 12:47:02 03/14/20 22 03/14/2022 CBC/C OMPLE TE BLD COUNT W/DIF F mean red cell hemoglobin 31.7 pg 27.0-3 3.0 Not Available [facility] (Lab) [address] [place], [address], 03/14/2022 12:47:02 03/14/2003/14/2022 CBC/C OMPLE TE BLD COUNT W/DIF F mean RBC HGB concentratio n 32.4 g/dL 31.0-3 6.0 Not Available [facility] (Lab) [address] [place], [address], 03/14/2022 12:47:02 03/14/20 22 03/14/2022 CBC/C OMPLE TE BLD COUNT W/DIF F red cell distribution width 13.4 % 11.8-1 5.5 Not Available [facility] (Lab) [address] [place], [address], 03/14/2022 12:47:02 03/14/20 22 03/14/2022 CBC/C OMPLE TE BLD COUNT W/DIF F platelets 247 x10'3 /uL 150-40 0 Not Available [facility] (Lab) [address] [place], [address], 03/14/2022 12:47:02 03/14/20 22 03/14/2022 CBC/C OMPLE TE BLD COUNT W/DIF F mean platelet volume 10.1 fL 9.0-12 .4 Not Available [facility] (Lab) [address] [place], [address], 03/14/2022 12:47:02 03/14/20 22 03/14/2022 CBC/C OMPLE TE BLD COUNT W/DIF F neutrophils 49.2 % 39.0-7 2.0 Not Available [facility] (Lab) [address] [place], [address], 03/14/2022 12:47:02 03/14/20 22 03/14/2022 CBC/C OMPLE TE BLD COUNT W/DIF F lymphocytes 39.5 % 16.0-4 7.0 Not Available [facility] (Lab) [address] [place], [address], 03/14/2022 12:47:02 03/14/20 22 03/14/2022 CBC/C OMPLE TE BLD COUNT W/DIF F monocytes 7.2 % 5.0-12 .0 Not Available [facility] (Lab) [address] [place], [address], 03/14/2022 12:47:02 03/14/20 22 03/14/2022 CBC/C OMPLE TE BLD COUNT W/DIF F eosinophils 3.7 % 1.0-7. 0 Not Available [facility] (Lab) [address] [place], [address], 03/14/2022 12:47:02 03/14/20 22 03/14/2022 CBC/C OMPLE TE BLD COUNT W/DIF F basophils 0.3 % 0.0-2. 0 Not Available [facility] (Lab) [address] [place], [address], 03/14/2022 12:47:02 03/14/20 22 03/14/2022 CBC/C OMPLE TE BLD COUNT W/DIF F immature granulocytes 0.1 % 0.00-0 .50 Not Available [facility] (Lab) [address] [place], [address], 03/14/2022 12:47:02 03/14/2003/14/2022 CBC/C OMPLE TE BLD COUNT W/DIF F neutrophils, absolute count 3.61 x10'3 /uL 1.5-8. 0 Not Available [facility] (Lab) [address] [place], [address], 03/14/2022 12:47:02 03/14/2003/14/2022 CBC/C OMPLE TE BLD COUNT W/DIF F lymphocytes, absolute count 2.90 x10'3 /uL 1.07-3 .43 Not Available [facility] (Lab) [address] [place], [address], 03/14/2022 12:47:02 03/14/2003/14/2022 CBC/C OMPLE TE BLD COUNT W/DIF F monocytes, absolute count 0.53 x10'3 /uL 0.29-0 .99 Not Available [facility] (Lab) [address] [place], [address], 03/14/2022 12:47:02 03/14/2003/14/2022 CBC/C OMPLE TE BLD COUNT W/DIF F eosinophils, absolute count 0.27 x10'3 /uL 0.02-0 .53 Not Available [facility] (Lab) [address] [place], [address], 03/14/2022 12:47:02 03/14/2003/14/2022 CBC/C OMPLE TE BLD COUNT W/DIF F basophils, absolute count 0.02 x10'3 /uL 0.01-0 .08 Not Available [facility] (Lab) [address] [place], [address], 03/14/2022 12:47:02 03/14/2001 0403/14/2022 CBC/C OMPLE TE BLD COUNT W/DIF F immature granulocytes ,absolute 0.01 x10'3 /uL 0.00-0 .05 Not Available [facility] (Lab) [address] [place], [address], 03/14/2022 12:47:02 03/14/20 22 03/14/2022 CBC/C OMPLE TE BLD COUNT W/DIF F nucleated red blood cells 0.0 % -0 Not Available [facility] (Lab) [address] [place], [address], 03/14/2022 12:47:02 03/14/2003/14/2022 CBC/C OMPLE TE BLD COUNT W/DIF F NRBC# 0.00 x10'3 /uL Not Available [facility] (Lab) [address] [place], [address], 03/14/2022 12:47:02 09/12/19 23 09/11/2022 CBC/C OMPLE TE BLD COUNT W/DIF F white blood cells 6.7 x10'3 /uL 4.2-10 .8 Not Available [facility] (Lab) [address] [place], [address], 09/11/2022 11:58:13 09/12/1909/11/2022 CBC/C OMPLE TE BLD COUNT W/DIF F red blood cells 4.34 x10'6 /uL 4.10-5 .80 Not Available [facility] (Lab) [address] [place], [address], 09/11/2022 11:58:13 09/12/19 23 09/11/2022 CBC/C OMPLE TE BLD COUNT W/DIF F hemoglobin 13.6 g/dL 13.2-1 7.0 Not Available [facility] (Lab) [address] [place], [address], 09/11/2022 11:58:13 09/12/19 23 09/11/2022 CBC/C OMPLE TE BLD COUNT W/DIF F hematocrit 42.1 % 39.3-5 0.0 Not Available [facility] (Lab) [address] [place], [address], 09/11/2022 11:58:13 09/12/19 23 09/11/2022 CBC/C OMPLE TE BLD COUNT W/DIF F mean red cell volume 97.0 fL 80.0-9 7.0 Not Available [facility] (Lab) [address] [place], [address], 09/11/2022 11:58:13 09/12/19 23 09/11/2022 CBC/C OMPLE TE BLD COUNT W/DIF F mean red cell hemoglobin 31.3 pg 27.0-3 3.0 Not Available [facility] (Lab) [address] [place], [address], 09/11/2022 11:58:13 09/12/19 23 09/11/2022 CBC/C OMPLE TE BLD COUNT W/DIF F mean RBC HGB concentratio n 32.3 g/dL 31.0-3 6.0 Not Available [facility] (Lab) [address] [place], [address], 09/11/2022 11:58:13 09/12/19 23 09/11/2022 CBC/C OMPLE TE BLD COUNT W/DIF F red cell distribution width 14.0 % 11.8-1 5.5 Not Available [facility] (Lab) [address] [place], [address], 09/11/2022 11:58:13 09/12/19 23 09/11/2022 CBC/C OMPLE TE BLD COUNT W/DIF F platelets 253 x10'3 /uL 150-40 0 Not Available [facility] (Lab) [address] [place], [address], 09/11/2022 11:58:13 09/12/19 23 09/11/2022 CBC/C OMPLE TE BLD COUNT W/DIF F mean platelet volume 9.7 fL 9.0-12 .4 Not Available [facility] (Lab) [address] [place], [address], 09/11/2022 11:58:13 09/12/19 23 09/11/2022 CBC/C OMPLE TE BLD COUNT W/DIF F neutrophils 46.8 % 39.0-7 2.0 Not Available [facility] (Lab) [address] [place], [address], 09/11/2022 11:58:13 09/12/19 23 09/11/2022 CBC/C OMPLE TE BLD COUNT W/DIF F lymphocytes 41.9 % 16.0-4 7.0 Not Available [facility] (Lab) [address] [place], [address], 09/11/2022 11:58:13 09/12/19 23 09/11/2022 CBC/C OMPLE TE BLD COUNT W/DIF F monocytes 7.2 % 5.0-12 .0 Not Available [facility] (Lab) [address] [place], [address], 09/11/2022 11:58:13 09/12/1909/11/2022 CBC/C OMPLE TE BLD COUNT W/DIF F eosinophils 3.4 % 1.0-7. 0 Not Available [facility] (Lab) [address] [place], [address], 09/11/2022 11:58:13 09/12/1909/11/2022 CBC/C OMPLE TE BLD COUNT W/DIF F basophils 0.6 % 0.0-2. 0 Not Available [facility] (Lab) [address] [place], [address], 09/11/2022 11:58:13 09/12/19 23 09/11/2022 CBC/C OMPLE TE BLD COUNT W/DIF F immature granulocytes 0.1 % 0.00-0 .50 Not Available [facility] (Lab) [address] [place], [address], 09/11/2022 11:58:13 09/12/19 23 09/11/2022 CBC/C OMPLE TE BLD COUNT W/DIF F neutrophils, absolute count 3.13 x10'3 /uL 1.5-8. 0 Not Available [facility] (Lab) [address] [place], [address], 09/11/2022 11:58:13 09/12/19 23 09/11/2022 CBC/C OMPLE TE BLD COUNT W/DIF F lymphocytes, absolute count 2.81 x10'3 /uL 1.07-3 .43 Not Available [facility] (Lab) [address] [place], [address], 09/11/2022 11:58:13 09/12/19 23 09/11/2022 CBC/C OMPLE TE BLD COUNT W/DIF F monocytes, absolute count 0.48 x10'3 /uL 0.29-0 .99 Not Available [facility] (Lab) [address] [place], [address], 09/11/2022 11:58:13 09/12/19 23 09/11/2022 CBC/C OMPLE TE BLD COUNT W/DIF F eosinophils, absolute count 0.23 x10'3 /uL 0.02-0 .53 Not Available [facility] (Lab) [address] [place], [address], 09/11/2022 11:58:13 09/12/19 23 09/11/2022 CBC/C OMPLE TE BLD COUNT W/DIF F basophils, absolute count 0.04 x10'3 /uL 0.01-0 .08 Not Available [facility] (Lab) [address] [place], [address], 09/11/2022 11:58:13 09/12/19 23 09/11/2022 CBC/C OMPLE TE BLD COUNT W/DIF F immature granulocytes ,absolute 0.01 x10'3 /uL 0.00-0 .05 Not Available [facility] (Lab) [address] [place], [address], 09/11/2022 11:58:13 09/12/19 23 09/11/2022 CBC/C OMPLE TE BLD COUNT W/DIF F nucleated red blood cells 0.0 % -0 Not Available [facility] (Lab) [address] [place], [address], 09/11/2022 11:58:13 09/12/19 23 09/11/2022 CBC/C OMPLE TE BLD COUNT W/DIF F NRBC# 0.00 x10'3 /uL Not Available [facility] (Lab) [address] [place], [address], 09/11/2022 11:58:13 09/12/1909/11/2022 LIPID PANEL cholesterol 155 mg/dL 140-19 9 [facility] JAYJAY NSUS RECOM MENDA TION FOR KRISTOFER STERO L: ADULT CHILD LOW RISK: <200 <170 BORDE RLINE : <200- 239 ----- HIGH RISK: >240 >200 Not Available [facility] (Lab) [address] [place], [address], 09/11/2022 13:48:50 09/12/1909/11/2022 LIPID PANEL triglyceride s 107 mg/dL 0-150 NIH JAYJAY NSUS REPOR T RECOM MENDA TION FOR TRIGL YCERI KEI: ADULT CHILD LOW RISK: <150 ----- BODER LINE: 150-1 99 ----- HIGH RISK: >200 ----- Not Available [facility] (Lab) [address] [place], [address], 09/11/2022 13:48:50 09/12/1909/11/2022 LIPID PANEL HDL cholesterol 38 mg/dL 40- low Not Available [facility] (Lab) [address] [place], [address], 09/11/2022 13:48:50 09/12/1909/11/2022 LIPID PANEL LDL cholesterol, [...] NOT BE REPOR DULCE MARIA. Not Available [facility] (Lab) [address] [place], [address], 09/11/2022 13:48:50 09/12/1909/11/2022 COMPR EHENS STONE METAB OLIC PANEL sodium 141 mmol/ L 137-14 5 Not Available [facility] (Lab) [address] [place], [address], 09/11/2022 13:48:55 09/12/1909/11/2022 COMPR EHENS STONE METAB OLIC PANEL potassium 4.1 mmol/ L 3.5-5. 1 Not Available [facility] (Lab) [address] [place], [address], 09/11/2022 13:48:55 09/12/1909/11/2022 COMPR EHENS STONE METAB OLIC PANEL chloride 105 mmol/ L 98-107 Not Available [facility] (Lab) [address] [place], [address], 09/11/2022 13:48:55 09/12/19 23 09/11/2022 COMPR EHENS STONE METAB OLIC PANEL carbon dioxide 24 mmol/ L 22-30 Not Available [facility] (Lab) [address] [place], [address], 09/11/2022 13:48:55 09/12/19 23 09/11/2022 COMPR EHENS STONE METAB OLIC PANEL anion gap 16.1 mmol/ L 14-22 Not Available [facility] (Lab) [address] [place], [address], 09/11/2022 13:48:55 09/12/19 23 09/11/2022 COMPR EHENS STONE METAB OLIC PANEL glucose 111 mg/dL 70-99 high Not Available [facility] (Lab) [address] [place], [address], 09/11/2022 13:48:55 09/12/19 23 09/11/2022 COMPR EHENS STONE METAB OLIC PANEL BUN 14 mg/dL 8-19 Not Available [facility] (Lab) [address] [place], [address], 09/11/2022 13:48:55 09/12/19 23 09/11/2022 COMPR EHENS STONE METAB OLIC PANEL creatinine 0.83 mg/dL 0.66-1 .25 Not Available [facility] (Lab) [address] [place], [address], 09/11/2022 13:48:55 09/12/19 23 09/11/2022 COMPR EHENS STONE METAB OLIC PANEL GFR >60 Refer ence Range : [place] ge GFR Healt hy Adult : >60 [...] calcu lator is avail able on the [facility] websi te: https ://lu w.kid bora.o rg/pr ofess ional s/kdo qi/gf r_cal culat or Not Available [facility] (Lab) [address] [place], [address], 09/11/2022 13:48:55 09/12/19 23 09/11/2022 COMPR EHENS STONE METAB OLIC PANEL alkaline phosphatase 84 U/L 38-126 Not Available [facility] (Lab) [address] [place], [address], 09/11/2022 13:48:55 09/12/19 23 09/11/2022 COMPR EHENS STONE METAB OLIC PANEL alanine aminotransfe rase 28 U/L 0-50 Not Available [facility] (Lab) [address] [place], [address], 09/11/2022 13:48:55 09/12/19 23 09/11/2022 COMPR EHENS STONE METAB OLIC PANEL aspartate aminotransfe rase 27 U/L 15-46 Not Available [facility] (Lab) [address] [place], [address], 09/11/2022 13:48:55 09/12/19 23 09/11/2022 COMPR EHENS STONE METAB OLIC PANEL bilirubin, total 0.50 mg/dL 0.20-1 .30 Not Available [facility] (Lab) [address] [place], [address], 09/11/2022 13:48:55 09/12/19 23 09/11/2022 COMPR EHENS STONE METAB OLIC PANEL calcium 8.9 mg/dL 8.4-10 .2 Not Available [facility] (Lab) [address] [place], [address], 09/11/2022 13:48:55 09/12/19 23 09/11/2022 COMPR EHENS STONE METAB OLIC PANEL total protein 7.0 g/dL 6.3-8. 2 Not Available [facility] (Lab) [address] [place], [address], 09/11/2022 13:48:55 09/12/19 23 09/11/2022 COMPR EHENS STONE METAB OLIC PANEL albumin 4.3 g/dL 3.4-5. 0 Not Available [facility] (Lab) [address] [place], [address], 09/11/2022 13:48:55 09/12/19 23 09/11/2022 COMPR EHENS STONE METAB OLIC PANEL globulin 2.7 g/dL 2.6-4. 2 Not Available [facility] (Lab) [address] [place], [address], 09/11/2022 13:48:55 09/12/19 23 09/11/2022 COMPR EHENS STONE METAB OLIC PANEL A/G ratio 1.6 ratio 1.0-2. 0 Not Available [facility] (Lab) [address] [place], [address], 09/11/2022 13:48:55 03/22/20 23 03/22/2023 CBC/C OMPLE TE BLD COUNT W/DIF F white blood cells 8.3 x10'3 /uL 4.2-10 .8 Not Available [facility] (Lab) [address] [place], [address], 03/22/2023 13:54:18 03/22/2003/22/2023 CBC/C OMPLE TE BLD COUNT W/DIF F red blood cells 4.36 x10'6 /uL 4.10-5 .80 Not Available [facility] (Lab) [address] [place], [address], 03/22/2023 13:54:18 03/22/2003/22/2023 CBC/C OMPLE TE BLD COUNT W/DIF F hemoglobin 14.4 g/dL 13.2-1 7.0 Not Available [facility] (Lab) [address] [place], [address], 03/22/2023 13:54:18 03/22/2003/22/2023 CBC/C OMPLE TE BLD COUNT W/DIF F hematocrit 43.5 % 39.3-5 0.0 Not Available [facility] (Lab) [address] [place], [address], 03/22/2023 13:54:18 03/22/2003/22/2023 CBC/C OMPLE TE BLD COUNT W/DIF F mean red cell volume 99.8 fL 80.0-9 7.0 high Not Available [facility] (Lab) [address] [place], [address], 03/22/2023 13:54:18 03/22/2003/22/2023 CBC/C OMPLE TE BLD COUNT W/DIF F mean red cell hemoglobin 33.0 pg 27.0-3 3.0 Not Available [facility] (Lab) [address] [place], [address], 03/22/2023 13:54:18 03/22/2003/22/2023 CBC/C OMPLE TE BLD COUNT W/DIF F mean RBC HGB concentratio n 33.1 g/dL 31.0-3 6.0 Not Available [facility] (Lab) [address] [place], [address], 03/22/2023 13:54:18 03/22/2003/22/2023 CBC/C OMPLE TE BLD COUNT W/DIF F red cell distribution width 13.7 % 11.8-1 5.5 Not Available [facility] (Lab) [address] [place], [address], 03/22/2023 13:54:18 03/22/2003/22/2023 CBC/C OMPLE TE BLD COUNT W/DIF F platelets 256 x10'3 /uL 150-40 0 Not Available [facility] (Lab) [address] [place], [address], 03/22/2023 13:54:18 03/22/2003/22/2023 CBC/C OMPLE TE BLD COUNT W/DIF F mean platelet volume 10.1 fL 9.0-12 .4 Not Available [facility] (Lab) [address] [place], [address], 03/22/2023 13:54:18 03/22/2003/22/2023 CBC/C OMPLE TE BLD COUNT W/DIF F neutrophils 44.2 % 39.0-7 2.0 Not Available [facility] (Lab) [address] [place], [address], 03/22/2023 13:54:18 03/22/2003/22/2023 CBC/C OMPLE TE BLD COUNT W/DIF F lymphocytes 44.0 % 16.0-4 7.0 Not Available [facility] (Lab) [address] [place], [address], 03/22/2023 13:54:18 03/22/2003/22/2023 CBC/C OMPLE TE BLD COUNT W/DIF F monocytes 8.1 % 5.0-12 .0 Not Available [facility] (Lab) [address] [place], [address], 03/22/2023 13:54:18 03/22/2003/22/2023 CBC/C OMPLE TE BLD COUNT W/DIF F eosinophils 2.9 % 1.0-7. 0 Not Available [facility] (Lab) [address] [place], [address], 03/22/2023 13:54:18 03/22/2003/22/2023 CBC/C OMPLE TE BLD COUNT W/DIF F basophils 0.6 % 0.0-2. 0 Not Available [facility] (Lab) [address] [place], [address], 03/22/2023 13:54:18 03/22/2003/22/2023 CBC/C OMPLE TE BLD COUNT W/DIF F immature granulocytes 0.2 % 0.00-0 .50 Not Available [facility] (Lab) [address] [place], [address], 03/22/2023 13:54:18 03/22/2003/22/2023 CBC/C OMPLE TE BLD COUNT W/DIF F neutrophils, absolute count 3.67 x10'3 /uL 1.5-8. 0 Not Available [facility] (Lab) [address] [place], [address], 03/22/2023 13:54:18 03/22/2003/22/2023 CBC/C OMPLE TE BLD COUNT W/DIF F lymphocytes, absolute count 3.65 x10'3 /uL 1.07-3 .43 high Not Available [facility] (Lab) [address] [place], [address], 03/22/2023 13:54:18 03/22/20 23 03/22/2023 CBC/C OMPLE TE BLD COUNT W/DIF F monocytes, absolute count 0.67 x10'3 /uL 0.29-0 .99 Not Available [facility] (Lab) [address] [place], [address], 03/22/2023 13:54:18 03/22/2003/22/2023 CBC/C OMPLE TE BLD COUNT W/DIF F eosinophils, absolute count 0.24 x10'3 /uL 0.02-0 .53 Not Available [facility] (Lab) [address] [place], [address], 03/22/2023 13:54:18 03/22/20 23 03/22/2023 CBC/C OMPLE TE BLD COUNT W/DIF F basophils, absolute count 0.05 x10'3 /uL 0.01-0 .08 Not Available [facility] (Lab) [address] [place], [address], 03/22/2023 13:54:18 03/22/2003/22/2023 CBC/C OMPLE TE BLD COUNT W/DIF F immature granulocytes ,absolute 0.02 x10'3 /uL 0.00-0 .05 Not Available [facility] (Lab) [address] [place], [address], 03/22/2023 13:54:18 03/22/2003/22/2023 CBC/C OMPLE TE BLD COUNT W/DIF F nucleated red blood cells 0.0 % -0 Not Available [facility] (Lab) [address] [place], [address], 03/22/2023 13:54:18 03/22/20 23 03/22/2023 CBC/C OMPLE TE BLD COUNT W/DIF F NRBC# 0.00 x10'3 /uL Not Available [facility] (Lab) [address] [place], [address], 03/22/2023 13:54:18 03/22/2003/22/2023 LIPID PANEL cholesterol 161 mg/dL 140-19 9 NIH JAYJAY NSUS RECOM MENDA TION FOR KRISTOFER STERO L: ADULT CHILD LOW RISK: <200 <170 BORDE RLINE : <200- 239 ----- HIGH RISK: >240 >200 Not Available [facility] (Lab) [address] [place], [address], 03/22/2023 14:13:22 03/22/2003/22/2023 LIPID PANEL triglyceride s 118 mg/dL 0-150 [facility] JAYJAY NSUS REPOR T RECOM MENDA TION FOR TRIGL YCERI KEI: ADULT CHILD LOW RISK: <150 ----- BODER LINE: 150-1 99 ----- HIGH RISK: >200 ----- Not Available [facility] (Lab) [address] [place], [address], 03/22/2023 14:13:22 03/22/2003/22/2023 LIPID PANEL HDL cholesterol 36 mg/dL 40- low Not Available [facility] (Lab) [address] [place], [address], 03/22/2023 14:13:22 03/22/2003/22/2023 LIPID PANEL LDL cholesterol, [...] NOT BE REPOR DULCE MARIA. Not Available [facility] (Lab) [address] [place], [address], 03/22/2023 14:13:22 03/22/2003/22/2023 COMPR EHENS STONE METAB OLIC PANEL sodium 143 mmol/ L 137-14 5 Not Available [facility] (Lab) [address] [place], [address], 03/22/2023 14:13:28 03/22/20 23 03/22/2023 COMPR EHENS STONE METAB OLIC PANEL potassium 4.2 mmol/ L 3.5-5. 1 Not Available [facility] (Lab) [address] [place], [address], 03/22/2023 14:13:28 03/22/2003/22/2023 COMPR EHENS STONE METAB OLIC PANEL chloride 103 mmol/ L 98-107 Not Available [facility] (Lab) [address] [place], [address], 03/22/2023 14:13:28 03/22/2003/22/2023 COMPR EHENS STONE METAB OLIC PANEL carbon dioxide 31 mmol/ L 22-30 high Not Available [facility] (Lab) [address] [place], [address], 03/22/2023 14:13:28 03/22/20 23 03/22/2023 COMPR EHENS STONE METAB OLIC PANEL anion gap 13.2 mmol/ L 14-22 low Not Available [facility] (Lab) [address] [place], [address], 03/22/2023 14:13:28 03/22/2003/22/2023 COMPR EHENS STONE METAB OLIC PANEL glucose 98 mg/dL 70-99 Not Available [facility] (Lab) [address] [place], [address], 03/22/2023 14:13:28 03/22/20 23 03/22/2023 COMPR EHENS STONE METAB OLIC PANEL BUN 17 mg/dL 8-19 Not Available [facility] (Lab) [address] [place], [address], 03/22/2023 14:13:28 03/22/2003/22/2023 COMPR EHENS STONE METAB OLIC PANEL creatinine 0.91 mg/dL 0.66-1 .25 Not Available [facility] (Lab) [address] [place], [address], 03/22/2023 14:13:28 03/22/2003/22/2023 COMPR EHENS STONE METAB OLIC PANEL GFR >60 Refer ence Range : [place] ge GFR Healt hy Adult : >60 [...] or ethni c subgr oups, such as Hisnm nics. Outsi de the valid ated maria [...] s/kdo qi/gf r_cal culat or Not Available [facility] (Lab) [address] [place], [address], 03/22/2023 14:13:28 03/22/2003/22/2023 COMPR EHENS STONE METAB OLIC PANEL alkaline phosphatase 76 U/L 38-126 Not Available [facility] (Lab) [address] [place], [address], 03/22/2023 14:13:28 03/22/2003/22/2023 COMPR EHENS STONE METAB OLIC PANEL alanine aminotransfe rase 24 U/L 0-50 Not Available [facility] (Lab) [address] [place], [address], 03/22/2023 14:13:28 03/22/2003/22/2023 COMPR EHENS STONE METAB OLIC PANEL aspartate aminotransfe rase 24 U/L 15-46 Not Available [facility] (Lab) [address] [place], [address], 03/22/2023 14:13:28 03/22/2003/22/2023 COMPR EHENS STONE METAB OLIC PANEL bilirubin, total 0.50 mg/dL 0.20-1 .30 Not Available [facility] (Lab) [address] [place], [address], 03/22/2023 14:13:28 03/22/2003/22/2023 COMPR EHENS STONE METAB OLIC PANEL calcium 9.5 mg/dL 8.4-10 .2 Not Available [facility] (Lab) [address] [place], [address], 03/22/2023 14:13:28 03/22/2003/22/2023 COMPR EHENS STONE METAB OLIC PANEL total protein 7.2 g/dL 6.3-8. 2 Not Available [facility] (Lab) [address] [place], [address], 03/22/2023 14:13:28 03/22/2003/22/2023 COMPR EHENS STONE METAB OLIC PANEL albumin 4.4 g/dL 3.4-5. 0 Not Available [facility] (Lab) [address] [place], [address], 03/22/2023 14:13:28 03/22/20 23 03/22/2023 COMPR EHENS STONE METAB OLIC PANEL globulin 2.8 g/dL 2.6-4. 2 Not Available [facility] (Lab) [address] [place], [address], 03/22/2023 14:13:28 03/22/20 23 03/22/2023 COMPR EHENS STONE METAB OLIC PANEL A/G ratio 1.6 ratio 1.0-2. 0 Not Available [facility] (Lab) [address] [place], [address], 03/22/2023 14:13:28 03/22/20 23 03/22/2023 PSA SCREE N PSA medicare screen 1.16 NG/mL 0.00-4 .00 Not Available [facility] (Lab) [address] [place], [address], 03/22/2023 14:34:44 03/13/20 22 03/14/2022 [facility] No observ ation record ed. [id number] Internal Med [facility] [address] [facility] [address], [place], [address], 08/09/2022 15:17:34 03/14/20 22 03/13/2022 elect rocar diogr am No observ ation record ed. [id number] Z_[id number]_gmg Internal Med [facility] [address] [facility] [facility] [address], [place], [address], 08/09/2022 15:17:34 03/17/20 22 03/17/2022 MRI, inter nal audit ory canal , w/wo contr ast [facility] [address] [place] [address] Patirosaura t Name: ANDRAE BUTLER Access ion #: [id number] Sex: M : 1964 6 Locati [...] cerebe llopon connor angle cister ns or internet marketing analyst al audito ry canals . The fifth, sevent h, and eighth crania l nerves are symmet mitch withou t abnorm al thicke jadiel. The cochle a and vestib ular aquedu cts appear Page 1 of 2 [facility] Patien t Name: ANDRAE BUTLER Access ion #: [id number] Sex: M : 1964 6 Exam Date: 1:18 PM Exam Name: MRI IACS W/WO Admitt ing Diagno sis(es ): normal and symmet mitch. No eviden ce of fluid or abnorm al signal in the middle ear spaces , mastoi d air cells, or accounts payable supervisor al audito ry canals . IMPRES VIVIANA: Unrema rkable pre and post IV contra st MRI of the IACs. Create d and electr onical ly signed by: Elmer schmid MD Signed Date: 4:23 PM (CT) Dictat ed by: Elmer schmid MD DD: 4:23 PM (CT) DT: 4:23 PM (CT) Page 2 of 2 [id number] [facility] (Imaging) [address] [place], [address], 08/09/2022 15:17:34 03/17/20 22 03/17/2022 , echoc ardio gram No observ ation record ed. [id number] [facility] [address], [place], [address], 08/09/2022 15:17:34 03/17/20 22 03/17/2022 MRI, brain , w/wo contr ast [facility] [address], [place] [address] Patien t Name: ANRDAE BUTLER Access ion #: [id number] Sex: M : 1964 6 Locati [...] alomal acia. No Page 1 of 2 [facility] Patien t Name: ANDRAE BUTLER Access ion #: [id number] Sex: M : 1964 6 Exam [...] 4:22 PM (CT) Page 2 of 2 [id number] [facility] [address] [place], [address], 08/09/2022 15:17:34 Result Notes Documentation Provider Name and Address Organization Details Recorded Time Mri, Brain, W/wo Contrast : [facility] [address] [place] [address] Patient Name: ANDRAE BUTLER Sex: M : 1965 Location: [facility] Attending Physician: ZULEIKA HERNANDEZ Ordering Physician: ZULEIKA HERNANDEZ Exam Date: 03/17/2022 1:18 PM Exam Name: MRI BRAIN W/WO Admitting Diagnosis(es): RADIOLOGY REPORT - FINAL EXAM: MRI BRAIN W/WO HISTORY: dizziness COMPARISON: None. TECHNIQUE: Dose: 17.0 ml Multihance gadolinium TECHNIQUE: Multiplanar multisequence contrast and noncontrast images are reviewed. Images are reviewed in the coronal, sagittal, and axial plane. Diffusion-weighted images are reviewed. FINDINGS: Brain: The stephen-white matter differentiation is within normal limits without evidence of demyelinating process. No evidence of encephalomalacia. No Page 1 of 2 [facility] Patient Name: ANDRAE BUTLER Sex: M : 1965 Exam Date: 03/17/2022 1:18 PM Exam Name: MRI BRAIN W/WO Admitting Diagnosis(es): evidence of infarction. No evidence of mass effect or cortical atrophy. The diffusion weighted sequences are normal. The bilateral 7/8 nerve complex, brainstem and cerebellum are grossly normal. Ventricular system midline, normal size, normal development. Osseous: The calvarium appears normal. Sinuses: Mild inflammatory changes within the bilateral maxillary and ethmoid air cells. Temporal mastoid air cells: Unremarkable Extra-axial fluid space: Unremarkable IMPRESSION: 1. No acute intracranial process. Created and electronically signed by: Elmer Doss MD Signed Date: 03/17/2022 4:22 PM (CT) Dictated by: Elmer Doss MD (CT) (CT) Page 2 of 2 Not Available [facility] 08/09/2022 15:17:34 Mri, Internal Auditory Canal, W/wo Contrast : [address] [address] Patient Name: ANDRAE BUTLER Sex: M : 1965 Location: [facility] Attending Physician: ZULEIKA HERNANDEZ Ordering Physician: ZULEIKA HERNANDEZ Exam Date: 03/17/2022 1:18 PM Exam Name: MRI IACS W/WO Admitting Diagnosis(es): RADIOLOGY REPORT - FINAL EXAM: MRI IACS W/WO HISTORY: dizziness COMPARISON: None available. TECHNIQUE: DOSE: 17.0ml Multihance gadolinium Multiplanar multisequence pre and post IV contrast images of the IACs were performed. FINDINGS: No evidence of mass in the cerebellopontine angle cisterns or internal auditory canals. The fifth, seventh, and eighth cranial nerves are symmetric without abnormal thickening. The cochlea and vestibular aqueducts appear Page 1 of 2 [facility] Patient Name: ANDRAE BUTLER Sex: M : 1965 Exam Date: 03/17/2022 1:18 PM Exam Name: MRI IACS W/WO Admitting Diagnosis(es): normal and symmetric. No evidence of fluid or abnormal signal in the middle ear spaces, mastoid air cells, or external auditory canals. IMPRESSION: Unremarkable pre and post IV contrast MRI of the IACs. Created and electronically signed by: Elmer Doss MD Signed Date: 03/17/2022 4:23 PM (CT) Dictated by: Elmer Doss MD (CT) (CT) Page 2 of 2 Not Available [facility] 08/09/2022 15:17:34 Problems Name Problem SNOMED Code Status Onset Date Resolution Date Notes Provider Name and Address Organization Details Recorded Time Impacted cerumen of bilateral ears 40631036266 36694 Active 2021 Not Available [facility] 3 07:57:59 Increased frequency of urination 441630065 Active Not Available [facility] 3 07:57:59 Pure hyperchol esterolem ia 853141660 Active Not Available [facility] 3 07:57:59 Wax in ear canal 911090456 Completed Not Available [facility] 3 15:14:59 Cat bite - wound 632381679 Completed Not Available [facility] 3 15:14:59 Inguinal hernia 972696665 Active Not Available [facility] 3 07:57:59 Vertigo 859488080 Active 2021 Not Available [facility] 3 07:57:59 Dizziness 621306928 Active 2021 Not Available [facility] 3 07:58:00 Hyperplas ia of prostate 204202160 Active Not Available [facility] 3 07:58:00 Bradycard ia 77380561 Active 2021 Not Available [facility] 3 07:58:00 Urgent desire to urinate 15319415 Completed Not Available [facility] 3 15:15:00 Neck pain 26118692 Completed Not Available [facility] 3 15:15:00 Chronic rhinitis 27090071 Active Not Available [facility] 3 07:58:00 Problem Notes None recorded. Medical Equipment None Reported. Allergies Allergen ID Allergen Name Allergen Category Reaction Reaction Severity Criticality Documentation Date Start Date Code Code System Note Provider Name and Address Organization Details Recorded Time 48498 Product containin g penicilli n (product) medicatio n Not available Not available Not available 08/09/2022 64362 8001 SNOMED Don't know his react ion just was told by his mom when he was a child . Not Available [facility] 3 15:17:28 Medications Name Sig Start Date [...] Available Not Available Vitals Date Recorded Body height Body mass index (BMI) Body weight Provider Name and Address Organization Details Last Updated DateTime 09/11/2022 177.8 cm 27.8 kg/m2 68251.92 g Denise Perry RN [facility] [employer] [facility] 09/11/2022 10:30:05 Date Recorded Body mass index (BMI) Body height Heart rate Body temperature Body weight Systolic blood pressure Diastolic blood pressure Provider Name and Address Organization Details Last Updated DateTime 2 27.8 kg/m2 177.8 cm 64 /min 97.7 [degF] 94701.9 2 g 110 mm[Hg] 70 mm[Hg] Not Available [facility] 3 15:13:38 Date Recorded Body mass index (BMI) Body height Heart rate Body temperature Body weight Systolic blood pressure Diastolic blood pressure Provider Name and Address Organization Details Last Updated DateTime 2 28.3 kg/m2 177.8 cm 62 /min 97.4 [degF] 40616.7 g 118 mm[Hg] 70 mm[Hg] Not Available [facility] 3 15:13:38 Date Recorded Body height Body mass index (BMI) Body weight Body temperature Heart rate Systolic blood pressure Diastolic blood pressure Provider Name and Address Organization Details Last Updated DateTime 3 177.8 cm 27.5 kg/m2 34372.7 4 g 98.6 [degF] 66 /min 142 mm[Hg] 78 mm[Hg] Piedad chopra RN [facility] [employer] [facility] 3 10:14:42 Date Recorded Body mass index (BMI) Body height Heart rate Body temperature Body weight Systolic blood pressure Diastolic blood pressure Provider Name and Address Organization Details Last Updated DateTime 2 28.3 kg/m2 177.8 cm 60 /min 97.7 [degF] 13580.7 g 114 mm[Hg] 74 mm[Hg] Not Available [facility] 3 15:13:38 Social History Question Answer Notes LastModified by Organization Details LastModified Time Tobacco Smoking Status Never Smoker Not Available [facility] 08/09/2022 15:13:11 Do You Have An Advance Directive? No [id number] Information not available 08/09/2022 What Is Your Level Of Caffeine Consumption? Moderate [id number] Information not available 08/09/2022 In The 14 Days Before Symptom Onset, Have You Had Close Contact With A Laboratory-conf irmed COVID-19 While That Case Was Ill? No [id number] Information not available 08/09/2022 In The 14 Days Before Symptom Onset, Have You Had Close Contact With A Person Who Is Under Investigation For COVID-19 While That Person Was Ill? No [id number] Information not available 08/09/2022 What Type Of Diet Are You Following? REGULAR [id number] Information not available 08/09/2022 Which Illicit Or Recreational Drugs Have You Used? Marijuana Smoke Marijuana MIGRATION.030 019756 Information not available 08/09/2022 What Is The Highest Grade Or Level Of School You Have Completed Or The Highest Degree You Have Received? OD05437-1 MIGRATION.030 266271 Information not available 08/09/2022 Have There Been Any Changes To Your Family Or Social Situation? No MIGRATION.0301 [id number] Information not available 08/09/2022 What Is The Fluoride Status Of Your Home? Unknown MIGRATION.0301 454416 Information not available 08/09/2022 Are There Any Guns Present In Your Home? No MIGRATION.0301 724371 Information not available 08/09/2022 Do You Use Insect Repellent Routinely? No MIGRATION.0301 813075 Information not available 08/09/2022 Where Do You Live? [place]House MIGRATION.0301 761436 Information not available 08/09/2022 Do You Have A Medical Power Of Professor Sculpture? No MIGRATION.0301 738989 Information not available 08/09/2022 What Was The Date Of Your Most Recent Tobacco Screening? 03/16/2023 [email or web address] Information not available 03/16/2023 Have You Ever Been Counseled For Unhealthy Alcohol Use? No MIGRATION.0301 166841 Information not available 08/09/2022 Do You Have Any Pets? Yes MIGRATION.0301 730221 Information not available 08/09/2022 What Is Your Relationship Status? MIGRATION.0301 312643 Information not available 08/09/2022 Do You Have Smoke And Carbon Monoxide Detectors In Your Home? Yes MIGRATION.0301 558952 Information not available 08/09/2022 Are You Passively Exposed To Smoke? No MIGRATION.0301 524601 Information not available 08/09/2022 Are There Any Smokers In Your House? No MIGRATION.0301 285084 Information not available 08/09/2022 Do You Use Sunscreen Routinely? No MIGRATION.0301 936271 Information not available 08/09/2022 Has Tobacco Cessation Counseling Been Provided? No MIGRATION.0301 432527 Information not available 08/09/2022 Have You Recently Traveled Abroad? No MIGRATION.0301 742545 Information not available 08/09/2022 Have You Used IV Drugs? No MIGRATION.0301 763816 Information not available 08/09/2022 Do You Have Any Dietary Restrictions? No MIGRATION.0301 808185 Information not available 08/09/2022 Sex: Male Functional Status Question Answer Note LastModified by [employer] Details LastModified Time Do you use any illicit or recreational drugs? Yes MIGRATION.672765 2779 Information not available 08/09/2022 Do you or have you ever used any other forms of tobacco or nicotine? No MIGRATION.416135 5457 Information not available 08/09/2022 What is your level of alcohol consumption? 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 Occasional MIGRATION.342703 0766 Information not available 08/09/2022 Mental Status Question Answer Note LastModified by [employer] Details LastModified Time Do you feel stressed (tense, restless, nervous, or anxious, or unable to sleep at night)? [id number] MIGRATION.[id number] 6 Information not available 08/09/2022 Family History Relationship Description Onset Age of this Age Resolved Age Notes LastModified by Organization Details LastModified Time Mother Diabetes mellitus MIGRATION.812 [id number] Not available 08/09/2022 15:13:23 Maternal Grandfather Diabetes mellitus MIGRATION.109 6723435 Not available 08/09/2022 15:13:23 Maternal Grandfather Heart disease MIGRATION.579 7986539 Not available 08/09/2022 15:13:23 Maternal Uncle Diabetes mellitus MIGRATION.504 1181725 Not available 08/09/2022 15:13:23 Medical History Condition Response HAVE YOU BEEN HOSPITALIZED OR SEEN IN [facility] ER IN THE PAST YEAR ? N Immunizations Vaccine Type Date Status Note Provider [facility] e and Address Organization Details Recorded Time Tdap 02/07/2016 completed Not Available [facility] 03/23/2023 07:58:00 Past Encounters Encounter ID Performer Location Encounter Start Date Encounter Closed Date Diagnosis/Indication Diagnosis SNOMED-CT Code Diagnosis ICD10 Code Diagnosis Note [id number] Zuleika Hernandez MD [facility] Internal Med [facility] [address] [facility].[place] [address] 12/14/2021 00:00:00 12/14/2021 17:38:15 [id number] Zuleika Hernandez MD [facility] Internal Med [facility] [address] [place] [address] 1 03/13/2022 00:00:00 03/13/2022 21:47:11 [id number] Zuleika Hernandez MD [facility] Internal Med [facility] [address] [place] [address] 1 04/03/2022 00:00:00 04/04/2022 17:12:27 [id number] Zuleika Hernandez MD [facility] Internal Med [facility] [address] [facility] [address] 09/11/2022 10:22:30 09/11/2022 10:46:15 Pure hypercholesterolemia 434558030 E78.00 History of polyp of colon 212583913 Z86.010 Vertigo 590320370 R42 [id number] Zuleika Hernandez MD [facility] Internal Med [facility] [address] [place] [address] [address] 03/16/2023 10:00:52 03/16/2023 11:04:10 Pure hypercholesterolemia 283978381 E78.00 History of polyp of colon 692569652 Z86.010 Screening for malignant neoplasm of prostate 555413932 Z12.5 Health Concerns Section Related Observation LastModified by Organization Detai ls LastModified Time None Recorded Concern Status LastModified by Organization Details LastModified Time None Recorded Advance Directives Directive N: Payers Insurance Date Sequence Insurance Name Policy Number Policy Bernard Covered Member ID Bernard Member ID Guarantor Name 09/14/2023 1 [facility] Andrae Butler [id number] Andrae Butler Notes Date Note Type Note Provider Name and Address Organization Details Recorded Time 3 text/html Vertigo seems to have resolvedHyperlipidemia does need blood workMother few days ago Zuleika Hernandez MD [address], [place], [address], [employer] 09/11/2022 10:53:59 3 text/html Hyperlipidemia trying to follow a low-fat diet. History of colon polyp needs colonoscopy did not get it done last time Zuleika Hernandez MD [address], [place], [address], [employer] 03/17/2023 12:47:08
--- OUTSIDE RECORDS SUMMARY | 2024-11-26 00:31 | XMS_ITS | Clinical Summary ---
Author Organization [facility] [address] Address [address] [place] [address] Care Team Providers Care Bingo Attendant Name Role Phone Nitin Hernandez MD Primary Care Provider [phone] Allergies Active Allergy Reactions Criticality Noted Date [...] to complete this topic Insurance Care Teams Bingo Attendant Relationship Specialty Start Date End Date Nitin Hernandez MD PCP - General Internal Medicine 12/14/21
--- OUTSIDE RECORDS SUMMARY | 2024-11-26 00:31 | XMS_ITS | Continuity of Care Document ---
Author Organization [facility] Address [address] [place] [address] Phone Care Team Providers Care Party Director Name Role Phone Rodriguez OD, Adan Unavailable Unavailable Advance Directives Directive Yes / No Effective Date File Name No Information Encounters Encounter Description Practice Location Reason(s) For Visit Diagnoses Date Provider Providers Copied on Encounter [facility], [address], [place], [place], [id number], [place] tel:[phone] [facility] [place] No Information Nov-0 6-200 2 Rodriguez OD Adan. [address] [facility] [place] , [address], [place], [address], [place]. tel:[phone] Family History Family Member Type Diagnosis Age [...]
--- OUTSIDE RECORDS SUMMARY | 2024-11-26 00:31 | XMS_ITS | Clinical Summary ---
Author Organization [employer] 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
--- OUTSIDE RECORDS SUMMARY | 2024-11-26 00:31 | XMS_ITS | Encounter Summary ---
Author Organization [employer] Address 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
--- OUTSIDE RECORDS SUMMARY | 2024-11-26 00:32 | XMS_ITS | Data Portability ---
Author Organization [facility] Address [address] [place] [address] Care Team Providers Care Railway Signal Operator Name Role Phone TIMA NITIN Primary Care Provider Assessment Encounter Date Assessment Date Assessment LastModified by Organization Details LastModified Time 03/03/2024 03/03/2024 colonoscopy. Loratadine. Blood work. Needs paperwork filled out for his employer to get money off his insurance premiums see me in 6 months. Flu COVID tetanus shingles he will consider Not available 03/03/2024 22:21:23 09/02/2024 09/02/2024 inguinal pain have General surgery see 09 October end up with Urology and I will send him to the surgeon who treated him before healthy lifestyle care instructions see me in 6 months Not available 09/05/2024 21:11:56 Plan of Treatment Reminders Order Date Submit Date Provider Last Modified By Organization Details Last Modified Time Details Appointments ANY 15 2024 03:00P M Nitin Hernandez MD Not available Not available Not available Lab CMP, serum or plasma 2023 024 [place] [facility], [address], [place], [address], 03/11/2024 03:37:11 lipid panel, serum 2023 024 [place] [facility], [address], [place], [address], 03/11/2024 03:37:11 CBC w/ auto diff 2023 024 [place] [facility], [address], [place], [address], 03/11/2024 03:37:12 HbA1c (hemoglob in A1c), blood 2023 024 [place] [facility], [address], [place], [address], 03/11/2024 03:37:12 Referral general surgeon referral 2024 025 CHICA Ramirez MD, [address], [address],, [place], [address], 10/05/2024 18:51:23 Procedures colonosco py procedure (PROC) 2023 024 [facility], [address], [address], [place], [address], 11/04/2024 16:21:38 Surgeries None recorded. Imaging None recorded. Medication Orders loratadin e 10 mg tablet 2023 024 [id number], [address], [place], [place], [id number], 03/03/2024 17:18:55 Patient TargetsNo targets recorded. Patient Instructions Encounter Date Encounter Id Patient Instructions Last Modified By Organization Details Last Modified Time 09/02/2024 [id number] A healthy lifestyle: care instructions [email or web address] Not available 09/02/2024 20:43:49 Reason for Referral General Surgeon Referral for Inguinal pain Referring Physician: Nitin Hernandez, Internal Medicine, Encounter Date: 09/02/2024 Results Created Date Observation Date Name Description Value Unit Range Abnormal Flag Note LastModifiedBy Organization Detail LastModifiedTime 03/10/20 24 03/11/2024 LIPID PANEL cholesterol, total 161 mg/dL 100-19 9 Not Available [facility] ([facility]) [address], [place], [address], 03/11/2024 03:37:11 03/10/20 24 03/11/2024 LIPID PANEL triglyceride s 184 mg/dL 0-149 above high normal Not Available [facility] ([facility]) [address] [facility] [place], [address], 03/11/2024 03:37:11 03/10/20 24 03/11/2024 LIPID PANEL HDL cholesterol 33 mg/dL >39 below low normal Not Available [facility] ([facility]) [address] [facility] [place], [address], 03/11/2024 03:37:11 03/10/20 24 03/11/2024 LIPID PANEL VLDL cholesterol jimenez 32 mg/dL 5-40 Not Available [facility] ([facility]) [address] [place], [address], 03/11/2024 03:37:11 03/10/20 24 03/11/2024 LIPID PANEL LDL chol calc ([facility]) 96 mg/dL 0-99 Not Available [facility]) [address] [facility] [place], [address], 03/11/2024 03:37:11 03/10/20 24 03/11/2024 COMP. METAB OLIC PANEL (14) glucose 110 mg/dL 70-99 above high normal Not Available [facility] ([facility]) [address] [facility] [place], [address], 03/11/2024 03:37:11 03/10/20 24 03/11/2024 COMP. METAB OLIC PANEL (14) BUN 15 mg/dL 6-24 Not Available [facility] ([facility]) [address] [facility] [place], [address], 03/11/2024 03:37:11 03/10/20 24 03/11/2024 COMP. METAB OLIC PANEL (14) creatinine 0.95 mg/dL 0.76-1 .27 Not Available [facility] ([facility]) [address] [place], [address], 03/11/2024 03:37:11 03/10/20 24 03/11/2024 COMP. METAB OLIC PANEL (14) eGFR 93 mL/mi n/1.7 3 >59 Not Available [facility] ([facility]) [address] [facility] [address], [place], [address], 03/11/2024 03:37:11 03/10/20 24 03/11/2024 COMP. METAB OLIC PANEL (14) BUN/creatini ne ratio 16 9-20 Not Available [facility] ([facility]) [address] [facility] [address], [place], [address], 03/11/2024 03:37:11 03/10/20 24 03/11/2024 COMP. METAB OLIC PANEL (14) sodium 141 mmol/ L 134-14 4 Not Available [facility] ([facility]) [address] [facility] [address], [place], [address], 03/11/2024 03:37:11 03/10/20 24 03/11/2024 COMP. METAB OLIC PANEL (14) potassium 4.5 mmol/ L 3.5-5. 2 Not Available [facility] ([facility]) [address] [facility] [address], [place], [address], 03/11/2024 03:37:11 03/10/20 24 03/11/2024 COMP. METAB OLIC PANEL (14) chloride 101 mmol/ L 96-106 Not Available [facility] ([facility]) [address] [facility] [address], [place], [address], 03/11/2024 03:37:11 03/10/20 24 03/11/2024 COMP. METAB OLIC PANEL (14) carbon dioxide, total 26 mmol/ L 20-29 Not Available [facility] ([facility]) [address] [facility] [address], [place], [address], 03/11/2024 03:37:11 03/10/20 24 03/11/2024 COMP. METAB OLIC PANEL (14) calcium 9.5 mg/dL 8.7-10 .2 Not Available [facility] ([facility]) [address] [facility] [address], [place], [address], 03/11/2024 03:37:11 03/10/20 24 03/11/2024 COMP. METAB OLIC PANEL (14) protein, total 6.9 g/dL 6.0-8. 5 Not Available [facility] ([facility]) [address] [place], [address], 03/11/2024 03:37:11 03/10/20 24 03/11/2024 COMP. METAB OLIC PANEL (14) albumin 4.4 g/dL 3.8-4. 9 Not Available [facility] ([facility]) [address] [place], [address], 03/11/2024 03:37:11 03/10/20 24 03/11/2024 COMP. METAB OLIC PANEL (14) globulin, total 2.5 g/dL 1.5-4. 5 Not Available [facility] ([facility]) [address] [place], [address], 03/11/2024 03:37:11 03/10/20 24 03/11/2024 COMP. METAB OLIC PANEL (14) bilirubin, total 0.6 mg/dL 0.0-1. 2 Not Available [facility] ([facility]) [address] [place], [address], 03/11/2024 03:37:11 03/10/20 24 03/11/2024 COMP. METAB OLIC PANEL (14) alkaline phosphatase 96 IU/L 44-121 Not Available [facility] ([facility]) [address] [place], [address], 03/11/2024 03:37:11 03/10/20 24 03/11/2024 COMP. METAB OLIC PANEL (14) AST (SGOT) 18 IU/L 0-40 Not Available [facility] ([facility]) [address] [facility] [address], [place], [address], 03/11/2024 03:37:11 03/10/20 24 03/11/2024 COMP. METAB OLIC PANEL (14) ALT (SGPT) 18 IU/L 0-44 Not Available [facility] ([facility]) [address] [facility] [address], [place], [address], 03/11/2024 03:37:11 03/10/20 24 03/11/2024 HEMOG LOBIN A1C hemoglobin A1C 5.8 % 4.8-5. 6 above high normal Predi abete s: 5.7 - 6.4 Diabe irish: >6.4 Glyce yani contr ol for adult s with diabe irish: <7.0 Not Available [facility] ([facility]) [address] [facility] [address], [place], [address], 03/11/2024 03:37:12 03/10/20 24 03/10/2024 CBC WITH DIFFE RENTI AL/PL ATELE T WBC 8.7 x10e3 /uL 3.4-10 .8 Not Available [facility] ([facility]) [address] [facility] [address], [place], [address], 03/11/2024 03:37:12 03/10/20 24 03/10/2024 CBC WITH DIFFE RENTI AL/PL ATELE T RBC 4.39 x10e6 /uL 4.14-5 .80 Not Available [facility] ([facility]) [address] [facility] [address], [place], [address], 03/11/2024 03:37:12 03/10/20 24 03/10/2024 CBC WITH DIFFE RENTI AL/PL ATELE T hemoglobin 14.0 g/dL 13.0-1 7.7 Not Available [facility] ([facility]) [address] [place], [address], 03/11/2024 03:37:12 03/10/20 24 03/10/2024 CBC WITH DIFFE RENTI AL/PL ATELE T hematocrit 43.1 % 37.5-5 1.0 Not Available [facility] ([facility]) [address] [facility] [address], [place], [address], 03/11/2024 03:37:12 03/10/20 24 03/10/2024 CBC WITH DIFFE RENTI AL/PL ATELE T MCV 98 fL 79-97 above high normal Not Available [facility] ([facility]) [address] [facility] [address], [place], [address], 03/11/2024 03:37:12 03/10/20 24 03/10/2024 CBC WITH DIFFE RENTI AL/PL ATELE T MCH 31.9 pg 26.6-3 3.0 Not Available [facility] ([facility]) [address] [facility] [address], [place], [address], 03/11/2024 03:37:12 03/10/20 24 03/10/2024 CBC WITH DIFFE RENTI AL/PL ATELE T MCHC 32.5 g/dL 31.5-3 5.7 Not Available [facility] ([facility]) [address] [facility] [address], [place], [address], 03/11/2024 03:37:12 03/10/20 24 03/10/2024 CBC WITH DIFFE RENTI AL/PL ATELE T RDW 12.8 % 11.6-1 5.4 Not Available [facility] ([facility]) [address] [place], [address], 03/11/2024 03:37:12 03/10/20 24 03/10/2024 CBC WITH DIFFE RENTI AL/PL ATELE T platelets 259 x10e3 /uL 150-45 0 Not Available [facility] ([facility]) [address] [place], [address], 03/11/2024 03:37:12 03/10/20 24 03/10/2024 CBC WITH DIFFE RENTI AL/PL ATELE T neutrophils 49 % notest ab. Not Available [facility] ([facility]) [address] [facility] [address], [place], [address], 03/11/2024 03:37:12 03/10/20 24 03/10/2024 CBC WITH DIFFE RENTI AL/PL ATELE T lymphs 39 % notest ab. Not Available [facility] ([facility]) [address] [facility] [address], [place], [address], 03/11/2024 03:37:12 03/10/20 24 03/10/2024 CBC WITH DIFFE RENTI AL/PL ATELE T monocytes 7 % notest ab. Not Available [facility] ([facility]) [address] [facility] [address], [place], [address], 03/11/2024 03:37:12 03/10/20 24 03/10/2024 CBC WITH DIFFE RENTI AL/PL ATELE T eos 4 % notest ab. Not Available [facility] ([facility]) [address] [facility] [address], [place], [address], 03/11/2024 03:37:12 03/10/20 24 03/10/2024 CBC WITH DIFFE RENTI AL/PL ATELE T basos 1 % notest ab. Not Available [facility] ([facility]) [address] [facility] [address], [place], [address], 03/11/2024 03:37:12 03/10/20 24 03/10/2024 CBC WITH DIFFE RENTI AL/PL ATELE T neutrophils (absolute) 4.3 x10e3 /uL 1.4-7. 0 Not Available [facility] ([facility]) [address] [facility] [address], [place], [address], 03/11/2024 03:37:12 03/10/20 24 03/10/2024 CBC WITH DIFFE RENTI AL/PL ATELE T lymphs (absolute) 3.4 x10e3 /uL 0.7-3. 1 above high normal Not Available [facility] ([facility]) [address] [facility] [address], [place], [address], 03/11/2024 03:37:12 03/10/20 24 03/10/2024 CBC WITH DIFFE RENTI AL/PL ATELE T monocytes(ab solute) 0.6 x10e3 /uL 0.1-0. 9 Not Available [facility] ([facility]) [address] [facility] [address], [place], [address], 03/11/2024 03:37:12 03/10/20 24 03/10/2024 CBC WITH DIFFE RENTI AL/PL ATELE T eos (absolute) 0.3 x10e3 /uL 0.0-0. 4 Not Available [facility] ([facility]) [address] [facility] [address], [place], [address], 03/11/2024 03:37:12 03/10/20 24 03/10/2024 CBC WITH DIFFE RENTI AL/PL ATELE T baso (absolute) 0.0 x10e3 /uL 0.0-0. 2 Not Available [facility] ([facility]) [address] [facility] [address], [place], [address], 03/11/2024 03:37:12 03/10/20 24 03/10/2024 CBC WITH DIFFE RENTI AL/PL ATELE T immature granulocytes 0 % notest ab. Not Available [facility] ([facility]) [address] [place], [address], 03/11/2024 03:37:12 03/10/20 24 03/10/2024 CBC WITH DIFFE RENTI AL/PL ATELE T immature grans (abs) 0.0 x10e3 /uL 0.0-0. 1 Not Available [facility] ([facility]) [address] [place], [address], 03/11/2024 03:37:12 03/03/20 24 05/21/2019 colon oscop y proce dure (PROC ) No observ ation record ed. BARCODE Not Available 2023 15:52:43 Result Notes None recorded. Medical Equipment None Reported. Allergies Allergen ID Allergen Name Allergen Category Reaction Reaction Severity Criticality Documentation Date Start Date Code Code System Note Provider Name and Address Organization Details Recorded Time 726187 Product containin g penicilli n (product) medicatio n Not available Not available low 03/03/2024 54178 8001 SNOMED Patie nt does not know what his react ion is LALITA Erwin [facility] 4 15:06:52 Medications Name Sig Start Date [...] Updated DateTime 5 180.34 cm 26.4 kg/m2 86753.7 5 g 54 /min 97 % 97 % 114 mm[Hg] 74 mm[Hg] LALITA Turcios - SI 5 16:25:31 Date Recorded Body height Body mass index (BMI) Body weight Heart rate Oxygen saturation Oxygen saturation in Arterial blood by Pulse oximetry Systolic blood pressure Diastolic blood pressure Provider Name and Address Organization Details Last Updated DateTime 4 180.34 cm 27.3 kg/m2 86314.3 1 g 65 /min 97 % 97 % 130 mm[Hg] 68 mm[Hg] LALITA Erwin [facility] 4 15:13:44 Social History Question Answer Notes [...] anxious, or unable to sleep at night)? NC8630-0 Information not available 03/03/2024 Family History Relationship [...] High Blood Pressure N Atrial Fibrillation N Thyroid Problems N Kidney or Bladder Problems N GI Problems N Depression N COPD N Blood Clots N Have you had a mammogram in the last yea r? N Skin Problems N Anemia N Heart Attack ([place]) N Diabetes N Anxiety Disorder N Muscle, [...] SNOMED-CT Code Diagnosis ICD10 Code Diagnosis Note [id number] Nitin Hernandez MD [facility] [address] [place] [address] 03/03/2024 14:44:12 03/03/2024 16:21:08 Adult health examination 954790352 Z00.00 History of polyp of colon 857622015 Z86.010 Rhinitis 73852006 J00 [id number] Nitin Hernandez MD [facility] (Adult Med) [address] [place] [address] 09/02/2024 16:07:39 09/02/2024 17:35:07 Body mass index 25-29 - overweight 533683063 Z68.26 Overweight 481471196 E66 .3 Inguinal pain 343548986 R10.2 Health Concerns Section Related Observation LastModified by Organization Detai ls LastModified Time None Recorded Concern Status LastModified by Organization Details LastModified Time None Recorded Advance Directives Directive N: Payers Insurance Date Sequence Insurance Name Policy Number Policy Bernard Covered Member ID Bernard Member ID Guarantor Name 09/08/2024 1 [facility] [id number] Andrae Rodgers [id number] Andrae Rodgers 03/03/2024 1 [place] [id number] Andrae Rodgers [id number] Andrae Rodgers Notes Date Note Type Note Provider Name and Address Organization Details Recorded Time 03/03/2024 text/html rhinitis needs loratadine colon polyp needs his colonoscopy Nitin Hernandez MD Attn: [address] , [place], [address], [facility] 03/03/2024 22:21:42 09/02/2024 text/html allergies doing fine inguinal pain he has had surgery there before and he just has an achiness. This all started after doing some shoveling snow in June Nitin Hernandez MD Attn: [address] , [place], [address], [facility] 09/05/2024 21:12:13
[2024-11-26] MEDS: ACETAMINOPHEN 500 MG TABLET 1000 MG PO (06:45)
[2024-11-26] MEDS: LACTATED RINGERS 1,000 ML 30 ML IV CONT ×2 (06:45→10:09)
[2024-11-26] MEDS: KETOROLAC 15 MG/ML VIAL (*BKC) IV PUSH (06:45)
--- NOTE | 2024-11-26 06:53 | WPDANESEPPF ---
Anes - Initial Pre Proc Eval Procedure: Operation Date: 11/26/24 07:30 Proposed Procedures p Robotic Laparoscopic Repair Right Inguinal Hernia with Mesh - Kevin Ramirez MD Date/Time: 11/26/24 06:53 Surgeon: Kevin Ramirez MD Pre Op Diagnosis: Right Inguinal Hernia Patient Data Age: 59 Gender: M Height: 1.8 m Weight: 90 kg Allergies Allergy/AdvReac Type Severity Reaction Status Date / Time Penicillins Allergy Unknown unknown Verified 11/14/24 08:30 Home Medications ?Medication ?Instructions ?Recorded ?Confirmed ?Type loratadine 10 mg tablet 10 mg PO DAILY 09/22/24 11/14/24 History Patient hx anesthesia problems: none Family hx anesthesia problems: none Results Review: All pre-operative results and documents have been reviewed as part of the pre-operative evaluation. 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 Alcohol intake: current Drinks per week: 6 Substance use: current Substance use type: marijuana Other substance usage details: 1-2 TIMES PER MONTH Living arrangements: with family Spiritual care concerns: No Anes - Eval Final PreProcedure Day of Procedure 11/26/24 06:53 Patient weight: overweight Heart: regular rate and rhythm Lungs: clear to auscultation Airway: Mallampati scale class II Neurological: alert and oriented Last oral intake: >/= 8 hours ASA classification: II Emergent: no Anesthetic plan: proceed Anesthesia type and monitoring: general ETT and standard monitoring Results Review: All pre-operative results and documents have been reviewed as part of the pre-operative evaluation. Informed Consent: The patient's anesthetic plan and its attendant risks and benefits were discussed with the patient/family/POA. Questions were solicited and answers provided to the satisfaction of the patient/family/POA.
--- NOTE | 2024-11-26 07:08 | WPDHPUPDATE1 ---
History and Physical Update Update Date/Time: 11/26/24 07:08 History and Physical has been reviewed, including an updated exam of the patient. There are NO changes in the patient's condition. Risks, benefits, and alternatives have been discussed and questions answered. Patient agrees to proceed with procedure.
[2024-11-26] MEDS: ceFAZolin 2 GM/D5W 50 ML 2 GM/50 ML BAG IVPB (07:23)
[2024-11-26] MEDS: BUPIVACAINE/EPINEPHRINE 0.5% 50 ML VIAL 30 ML INFILTRATE (08:00)
--- NOTE | 2024-11-26 09:20 | P.OP_ITS ---
Procedure Note - Detailed Date of Procedure 11/26/24 Pre-op Diagnosis Right Inguinal Hernia Post-op Diagnosis Same Procedure Performed Robotic laparoscopic repair right inguinal hernia with mesh Surgeon Kevin Ramirez MD [employer] Furnace Operator Danielle Saldana [facility] Anesthesia General and Local Indications Patient has noticed a bulge with some discomfort in the right groin. He was diagnosed with a right inguinal hernia and is taken to surgery now for robotic laparoscopic repair Findings Showed a large indirect right inguinal hernia Description of Procedure Patient was taken to surgery and induced into general anesthesia. The abdomen is prepped and draped. Trocars were placed in the usual fashion using an optical trocar initially and then switching to all 8 mm robotic trocars under direct visualization. Patient was placed in Trendelenburg. An anterior peritoneal flap was developed. The flap was developed broadly proceeding from anterior to posterior. It was noted immediately that there was a large direct inguinal hernia. Dissection was carried just behind the right rectus muscle down to Marck's ligament. We dissected further medial and expose the pubis and a little beyond the pubis. The left rectus medial border was also exposed. Dissection was carried out throughout who present ligament over to the obturator plug. I dissected posterior to Marck's ligament for a couple of cm as well. We dissected the peritoneal flap well posterior and carefully dissected it from the cord structures. The direct hernia was reduced dividing the tissues attached to the transversalis fascia carefully with the scissors and cautery. Eventually the inguinal space was dissected adequately for mesh placement. An extra-large 17 x 12 cm right mid 3DMax mesh was then delivered into the peritoneal cavity and positioned appropriately. Pre 0 Vicryl suture was then used to suture the mesh to Marck's ligament. Additionally 2 anterior sutures were placed 1 lateral and 1 medial to further fixate to the anterior abdominal wall. 3-0 V lock suture was then used to close the peritoneal defect. All looked good. Both needles were removed. We evacuated CO2 and removed the trocar sleeves. Skin incisions were closed with subcuticular 4-0 Monocryl skin suture. The wounds were dressed with Exofin surgical adhesive. Sponge needle counts were correct x2. Implants Extra-large, 17 x 12 cm, right mid 3DMax mesh Estimated Blood Loss -5 Drains No Packing No Pathology None sent Complications None Condition Stable Disposition PACU [facility] Billing Surgery - Charge Forward: Surgery Billing (Robotic laparoscopic repair right inguinal hernia with mesh)
[2024-11-26] MEDS: oxyCODONE HCL (*CRX) 5 MG TAB IR PO (10:05)
== END 2024-11-26 10:54 | disposition home or self-care (01) ==
PROVIDERS: PCP Internal Medicine; Visit Provider Surgery
PROC: 8E0Y4CZ Robotic Assisted Procedure of Lower Extremity, Percutaneous Endoscopic Approach (ICD-10-PCS; CPT 49650; principal; 2024-11-26 07:30)
DX: K40.90 Unilateral inguinal hernia, without obstruction or gangrene, not specified as recurrent (principal); G89.18 Other acute postprocedural pain; F12.90 Cannabis use, unspecified, uncomplicated; Z79.891 Long term (current) use of opiate analgesic; Z87.891 Personal history of nicotine dependence; Z86.0100 Personal history of colon polyps, unspecified; Z80.9 Family history of malignant neoplasm, unspecified; Z82.49 Family history of ischemic heart disease and other diseases of the circulatory system
CPT/HCPCS: 49650; S2900; A9270; C1781; J0690; J1100; J1885; J2250; J2270; J2405; J2704; J7030; J7120

== ENCOUNTER 2025-04-14 09:22 | Outpatient (CLI) | payer OTHER, SELFPAY ==
--- NOTE | 2025-04-14 09:20 | NEURO_ITS ---
Impression: # Borderline diabetic complains of numbness of right 5th finger. 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 # Normal Needle/ EMG exam. # Clinical correlation recommended. Nerve Conduction Studies ?Stim Site NR Peak (ms) P-T Amp (?V) Site1 Site2 Delta-P (ms) Dist (cm) Ronald (m/s) Left Median Anti Sensory (2-3nd Digit) Wrist ? 3.4 37.2 Wrist 2-3nd Digit 3.4 14.0 41 Wrist ? 3.3 37.7 Wrist 2-3nd Digit 3.4 14.0 41 Right Median Anti Sensory (2-3nd Digit) Wrist ? 2.9 19.8 Wrist 2-3nd Digit 2.9 14.0 48 Wrist ? 2.9 20.0 Wrist 2-3nd Digit 2.9 14.0 48 Left Radial Anti Sensory (Base 1st Digit) Wrist ? 2.4 14.8 Wrist Base 1st Digit 2.4 0.0 Right Radial Anti Sensory (Base 1st Digit) Wrist ? 2.5 20.6 Wrist Base 1st Digit 2.5 0.0 Left Ulnar Anti Sensory (5th Digit) Wrist ? 2.9 42.8 Wrist 5th Digit 2.9 14.0 48 Right Ulnar Anti Sensory (5th Digit) Wrist ? 2.9 19.7 Wrist 5th Digit 2.9 14.0 48 ?Stim Site NR Onset (ms) O-P Amp (mV) Site1 Site2 Delta-0 (ms) Dist (cm) Ronald (m/s) Left Median Motor (Abd Poll Brev) Wrist ? 3.2 3.5 Elbow Wrist 5.2 26.0 50 Elbow ? 8.4 3.2 Right Median Motor (Abd Poll Brev) Wrist ? 3.2 4.5 Elbow Wrist 5.9 30.0 51 Elbow ? 9.1 5.3 Left Ulnar Motor (Abd Dig Minimi) Wrist ? 2.0 5.0 A Elbow Wrist 7.1 32.0 45 A Elbow ? 9.1 3.7 B Elbow Wrist 5.3 24.0 45 B Elbow ? 7.3 1.5 Right Ulnar Motor (Abd Dig Minimi) Wrist ? 2.0 4.6 A Elbow Wrist 6.9 31.0 45 A Elbow ? 8.9 4.2 B Elbow Wrist 4.6 21.0 46 B Elbow ? 6.6 3.9 F Wave Studies ?NR F-Lat (ms) L-R F-Lat (ms) Left Median (Mrkrs) (Abd Poll Brev) ? 30.30 0.14 Right Median (Mrkrs) (Abd Poll Brev) ? 31.09 0.80 Left Ulnar (Mrkrs) (Abd Dig Min) ? 32.57 1.40 Right Ulnar (Mrkrs) (Abd Dig Min) ? 31.17 1.40 Electromyography ?Side Muscle Nerve Root Ins Act Fibs Amp Dur Recrt Comment Right 1stDorInt Ulnar C8-T1 Nml Nml Nml Nml Nml Right Ext Indicis Radial (Post Int) C7-8 Nml Nml Nml Nml Nml Right Ext Digitorum Radial (Post Int) C7-8 Nml Nml Nml Nml Nml Right BrachioRad Radial C5-6 Nml Nml Nml Nml Nml Right PronatorTeres Median C6-7 Nml Nml Nml Nml Nml Right Abd Poll Brev Median C8-T1 Nml Nml Nml Nml Nml Right ABD Dig Min Ulnar C8-T1 Nml Nml Nml Nml Nml Right FlexPolLong Median (Ant Int) C7-8 Nml Nml Nml Nml Nml Right Abd Poll Long Radial (Post Int) C7-8 Nml Nml Nml Nml Nml Left 1stDorInt Ulnar C8-T1 Nml Nml Nml Nml Nml Left Ext Indicis Radial (Post Int) C7-8 Nml Nml Nml Nml Nml Left Ext Digitorum Radial (Post Int) C7-8 Nml Nml Nml Nml Nml Left BrachioRad Radial C5-6 Nml Nml Nml Nml Nml Left PronatorTeres Median C6-7 Nml Nml Nml Nml Nml Left Abd Poll Brev Median C8-T1 Nml Nml Nml Nml Nml Left ABD Dig Min Ulnar C8-T1 Nml Nml Nml Nml Nml Left FlexPolLong Median (Ant Int) C7-8 Nml Nml Nml Nml Nml Left Abd Poll Long Radial (Post Int) C7-8 Nml Nml Nml Nml Nml
--- OUTSIDE RECORDS SUMMARY | 2025-04-14 10:27 | XMS_ITS | Encounter Summary ---
Author Organization [facility] Address 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
--- OUTSIDE RECORDS SUMMARY | 2025-04-14 10:27 | XMS_ITS | Clinical Summary ---
Author Organization [facility] [address] Address [address] [place] [address] Care Team Providers Care New [employer] Delivery Driver Name Role Phone Nitin Hernandez MD Primary Care Provider [phone] Allergies Active Allergy Reactions Criticality Noted Date [...] Plan of Treatment Not on file Insurance Care Teams [employer] Delivery Driver Relationship Specialty Start Date End Date Nitin Hernandez MD PCP - General Internal Medicine 12/14/21
--- OUTSIDE RECORDS SUMMARY | 2025-04-14 10:27 | XMS_ITS | Clinical Summary ---
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
--- OUTSIDE RECORDS SUMMARY | 2025-04-14 10:27 | XMS_ITS | Encounter Summary ---
Author Organization [facility] Address 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
== END 2025-04-14 09:23 | disposition home or self-care (01) ==
PROVIDERS: PCP Internal Medicine; Visit Provider Internal Medicine
DX: G56.23 Lesion of ulnar nerve, bilateral upper limbs (principal)
CPT/HCPCS: 95886; 95911